=== PATIENT | male | born 1960 | race Caucasian/White ===

== ENCOUNTER 2020-12-18 19:16 | Outpatient (REF) | payer BC, SELFPAY ==
[2020-12-18 21:50] LABS: Abs Immature Grans 0.02 10^3/uL (0.0-0.06); Absolute Basophil Count 0.03 10^3/uL (0.0-0.2); Absolute Eosinophil Count 0.22 10^3/uL (0.0-0.7); Absolute Lymphocyte Count 1.93 10^3/uL (1.2-3.4); Absolute Monocyte Count 0.92 10^3/uL (0.1-0.8); Basophils % 0.3; Eosinophils % 2.3; HCT 40.7 % (40.0-50.0); HGB 13.4 g/dL (13.5-17.5); Immature Grans % 0.2; Lymphocytes % 20.5; MCH 30.3 pg (27.0-33.0); MCHC 32.9 % (32.0-36.0); MCV 92.1 fL (80-95); MPV 10.9 fL (8.0-11.0); Monocytes % 9.8; Neutrophils % 66.9; Nucleated RBC 0 %; Platelet Count 255 10^3/uL (130-400); RBC 4.42 10^6/uL (4.36-5.78); RDW 12.4 % (11.8-14.1); RDW-SD 41.9 fL; WBC 9.42 10^3/uL (4.4-10.8)
[2020-12-18 21:58] LABS: ALT 23 U/L (16-63); AST 15 U/L (15-37); Albumin 3.6 g/dL (3.4-5.0); Alkaline Phosphatase 103 U/L (46-116); Anion Gap 9.8 mmol/L (3-11); BUN 21 mg/dL (7-18); Bilirubin, Total 0.3 mg/dL (0.2-1.0); CO2 27.2 mmol/L (21.0-32.0); CREATININE 1.1 mg/dL (0.70-1.30); Calcium 9.2 mg/dL (8.5-10.1); Chloride 107 mmol/L (98-107); Glucose 100 mg/dL (74-106); Sodium 144 mmol/L (136-145); Total Protein 7.4 g/dL (6.4-8.2); Uric Acid 5.7 mg/dL (3.5-7.2)
== END 2020-12-18 19:17 | disposition home or self-care (01) ==
LOC: LBN 19:16
PROVIDERS: Visit Provider Nurse Practitioner Family
DX: I10 Essential (primary) hypertension (principal); M25.571 Pain in right ankle and joints of right foot
CPT/HCPCS: 80053; 84550; 85025

== ENCOUNTER 2020-12-24 00:53 | Outpatient (CLI) | payer BC, SELFPAY ==
--- NOTE | 2020-12-24 07:00 | DI.RAD_ITS ---
Exam(s) XR ANKLE RT COMPLETE EXAM: XR ANKLE RT COMPLETE CLINICAL HISTORY: right ankle pain,M25.571. TECHNIQUE: 2D digital imaging was performed. COMPARISON: No exams were available for comparison FINDINGS: There is no evidence of acute fracture or widening of the mortise. Talar dome appears unremarkable. Moderate size inferior calcaneal spur is noted. Dorsal talar beak also noted. There is a sclerotic medullary nonexpansile bone lesion within the distal tibia at the diaphysis-meta physis junction which measures approximately 2.5 by 1.5 cm. This is a somewhat spiculated sclerotic lesion. Possibly enchondroma, bone infarct, or other lesion. Recommend nuclear bone scan or MRI as next step here for further investigation. IMPRESSION: DATA REPOSITORY: RADIATION DOSE DELIVERED:
== END 2020-12-24 01:13 ==
LOC: DI 00:53
PROVIDERS: Visit Provider Nurse Practitioner Family
DX: M25.571 Pain in right ankle and joints of right foot (principal); M77.31 Calcaneal spur, right foot; R93.7 Abnormal findings on diagnostic imaging of other parts of musculoskeletal system
CPT/HCPCS: 73610

== ENCOUNTER 2021-01-09 00:28 | Outpatient (CLI) | payer BC, SELFPAY ==
--- NOTE | 2021-01-09 07:15 | DI.MRI_ITS ---
Exam(s) MR LOWER JOINT RT WO/W EXAM: MR LOWER JOINT RT WO/W CLINICAL HISTORY: distal tibia bone lesion,m89.9. TECHNIQUE: Multiplanar multisequence MRI Examination was performed. CONTRAST MATERIAL: IV Contrast: 20 mL of Dotarem contrast administered. COMPARISON: Plain films 24 December 2020 FINDINGS: BONES/JOINTS: No evidence of fracture. Serpiginous low signal sclerotic area distal tibia with minima l high signal surrounding on T2 weighted images. No enhancement following IV gadolinium. Findings a re consistent with an enchondroma. Small joint effusion and fluid seen posterior to the posterior t alocalcaneal joint. Degenerative changes posterior talocalcaneal joint. Degenerative changes intert arsal region with degenerative marrow signal changes. Plantar calcaneal spur without abnormal signal . LIGAMENTS: The medial and lateral collateral ligaments are intact. MUSCULOTENDINOUS STRUCTURES: Tendons appear normal. Visualized portion of the planar fascia is unrem arkable. . SOFT TISSUES: Mild diffuse subcutaneous edema.. OTHER FINDINGS: None. IMPRESSION: Lesion in the distal tibia is consistent with an enchondroma. No tendon tears. Degenerative changes in the tail calcaneal joint as well as intertarsal region. DATA REPOSITORY:
[2021-01-09 13:18] LABS: CREATININE 1.5 mg/dL (0.70-1.30)
[2021-01-09] MEDS: Normal Saline Flush 10 ML SYR IVP (13:30)
[2021-01-09] MEDS: Gadoterate meglumine 20 ML VIAL IVP (13:31)
== END 2021-01-09 00:48 ==
PROVIDERS: PCP Nurse Practitioner Family; Visit Provider Physician Assistant
DX: M89.261 Other disorders of bone development and growth, right tibia (principal)
CPT/HCPCS: 73723; 82565

== ENCOUNTER 2021-03-10 10:59 | Outpatient (CLI) | payer BC, SELFPAY ==
--- NOTE | 2021-03-10 10:15 | DI.RAD_ITS ---
Exam(s) XR FOOT RT LIMITED EXAM: XR FOOT RT LIMITED CLINICAL HISTORY: right foot pain. TECHNIQUE: 2D digital imaging was performed of the right foot. Two images were obtained. AP and la teral views were obtained. COMPARISON: CR XR ANKLE RT COMPLETE from 12/24/2020 FINDINGS: BONES: No acute fracture is present. No bony destructive lesion is seen. There is a moderate size bridgett ntar calcaneal spur. There is again seen a state sclerotic lesion in the distal tibia. Primary diff erential considerations remain enchondroma or bone infarct. JOINTS: No dislocation present. Mild joint space narrowing and periarticular spurring is seen at the 1st MTP joint. Mild hypertrophic changes are seen at the tarsometatarsal joints. SOFT TISSUE: Normal. IMPRESSION: Mild degenerative changes of the right foot. DATA REPOSITORY: RADIATION DOSE DELIVERED:
== END 2021-03-10 11:00 | disposition home or self-care (01) ==
LOC: DIORS 10:59
PROVIDERS: PCP Nurse Practitioner Family; Referring Provider Nurse Practitioner Family; Visit Provider Physician Assistant
DX: M79.671 Pain in right foot (principal); M25.571 Pain in right ankle and joints of right foot; M19.071 Primary osteoarthritis, right ankle and foot; M77.31 Calcaneal spur, right foot
CPT/HCPCS: 73620

== ENCOUNTER 2021-07-14 18:07 | Inpatient (IN) | payer BC, SELFPAY ==
[2021-07-14 18:09] VITALS: BP 146/82; PULSE 116; RESP 20; TEMP 37.6; O2SAT 99
--- NOTE | 2021-07-14 18:15 | RT.EKG_ITS ---
APPROVED REPORT Exam: Resting ECG Reason for Exam: Tachy/SOB Patient Location: E HR:111 bpm ECG Measurements Heart Rate 111 AXIS SD 153 P 34 QRSd 96 QRS -13 QT 314 T 51 QTc 427 Conclusion Sinus tachycardia...rate> 99
--- NOTE | 2021-07-14 18:30 | DI.RAD_ITS ---
Exam(s) XR CHEST 2V PA LATERAL CT CHEST WO EXAM: CT CHEST WO CLINICAL HISTORY: L effusion, short of breath TECHNIQUE: CT examination of the chest was performed without contrast administration. COMPARISON: CR,XR XR CHEST 2V PA LATERAL from 07/14/2021 FINDINGS: Images obtained through the upper abdomen show unremarkable appearance of visualized portions of the liver and spleen. Visualized portions of kidneys, adrenals, and pancreas appear intact. There is no mediastinal or hilar adenopathy. Mediastinal vascular structures appear intact by noncon trast criteria. Incidental note is made of apparent coronary artery calcification. Tracheobronchial tree appears intact. Right lung is clear and there is no right pleural effusion. There is an apparent left pleural fluid collection which is complex. There are associated areas of left lower lobe and lingular atelectasis. No definite mass identified. The findings may represent infectious process with secondary empyema. Neoplastic disease not excluded on the basis of this examination.. IMPRESSION: Left complex pleural fluid collection, suspect empyema. Alternatively, neoplastic disease should be considered. Consider thoracentesis for diagnostic purposes.. RADIATION DOSE DELIVERED: 693.99mGy.cm Total DLP CTDIvol 693.99mGy.cm Total DLP !Error CTDIvol RADIATION OPTIMIZATION: All CT scans at this facility use at least one of these dose optimization te chniques: automated exposure control; mA and/or kV adjustment per patient size (includes targeted exa ms where dose is matched to clinical indication); or iterative reconstruction.
--- NOTE | 2021-07-14 18:32 | W.ED.GENAD ---
Discharge Plan Disposition Patient Disposition: [facility]IENT Condition: Improving Discharge Details Clinical Impression: Left lower lobe pneumonia Primary Care Provider: Bo Brown ED Provider: Darryl Hodges Home Meds and New Rx's Prescriptions: No Action amlodipine 10 mg tablet 10 mg PO DAILY Qty: 90 2RF hydrochlorothiazide 25 mg tablet 25 mg PO DAILY Qty: 90 2RF losartan 100 mg tablet 100 mg PO DAILY Qty: 90 2RF metoprolol succinate 100 mg tablet extended release 24 hr 100 mg PO DAILY Qty: 90 2RF Medical Decision Making 60-year-old male presents from urgent care where he was seen and referred. Patient states that 1 week ago he was leaning over to the passenger side foot well of his car while driving and coughed hard, experiencing a pain to the left side of his chest. Over the past 2 days the pain has been improving, but he has developed dyspnea particularly while lying flat or well mildly exerting himself. He denies current chest pain. He did not suffer any other injury. Patient referred for chest x-ray which reveals a moderate to large partially loculated left pleural effusion. There is left mid to lower lung zone disease with question of pneumonia or postobstructive consolidation. Given these findings, IV access established, screening labs obtained and patient referred for CT scan of the chest. CT scan reveals severe consolidation left lower lobe with air bronchograms. Patchy airspace disease left pronounced in the left upper lobe. No definitive central airway lesions appreciated. See formal report. Patient's laboratories reveal a white count of 21, hematocrit of 30, platelets 717. Sodium 138, potassium 4.0, chloride 101, bicarb 23, BUN 29 with a creatinine of 2.4. Magnesium is 1.3. AST 56, ALT is 74. Total bili is normal at 0.3. The patient denies any significant antecedent illness, but the presentation does seem most consistent with a walking pneumonia. In this former smoker must rule out a underlying mass. Given his acute kidney injury, mild tachycardia at presentation, I do feel admission is warranted. The patient states to me that he has been immunized against COVID-19. He states he is a daily consumer of coffee and energy drinks as well as approximately a 6 pack beer per night. Case discussed with Dr. Patino and patient to be admitted HPI General Mode of arrival: ambulatory. Date/Time Provider Initiated Documentation: 07/14/21 18:15. Limitations to Documentation: no limitations. Information obtained by: patient. History of Present Illness 60 year old M presents to the emergency department with the chief complaint of 1 week left chest pain and shortness of breath., described as mild, Quality is described as dull, and is localized to the chest and left. Patient reports no radiation. Patient started experiencing this day(s) and it has been intermittent. Rest improves symptom(s), Movement worsens symptoms . Patient notes shortness of breath. Patient did receive the following treatments prior to arrival, none Related Data Home Medications Medication Instructions Recorded Confirmed amlodipine 10 mg tablet 10 mg PO DAILY #90 tabs 05/19/21 07/14/21 hydrochlorothiazide 25 mg tablet 25 mg PO DAILY #90 tabs 05/19/21 07/14/21 losartan 100 mg tablet 100 mg PO DAILY #90 tabs 05/19/21 07/14/21 metoprolol succinate 100 mg 100 mg PO DAILY #90 tabs 05/19/21 07/14/21 tablet,extended release 24 hr Previous Rx's Medication Instructions Recorded amlodipine 10 mg tablet 10 mg PO DAILY #90 tabs 05/19/21 hydrochlorothiazide 25 mg tablet 25 mg PO DAILY #90 tabs 05/19/21 losartan 100 mg tablet 100 mg PO DAILY #90 tabs 05/19/21 metoprolol succinate 100 mg 100 mg PO DAILY #90 tabs 05/19/21 tablet,extended release 24 hr Allergies Allergy/AdvReac Type Severity Reaction Status Date / Time lisinopril AdvReac Intermediate Verified 07/14/21 18:42 General Stated Complaint: SOB DARRELL: 3 Review of Systems Narrative: no other complaint PFSH All Active Problems (Updated 07/14/21 @ 20:04 by Darryl Hodges MD) Left lower lobe pneumonia (Acute) Posterior tibial tendon dysfunction (PTTD) of right lower extremity (Acute) 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 Sister No problems noted. Brother No problems noted. Social History Smoking/Tobacco Use Status: Former Tobacco Use tobacco type: cigarettes and e-cigarettes Quit Date: 02/14/17 Second Hand Exposure: Yes Smoking risk assessment performed?: Yes Alcohol Intake: current Alcohol Intake frequency: a few times a week Alcohol type: beer Drug use: Never Substance use type: does not use Caregiver/Support person: No Household members: spouse Housing: house Communication Needs: None Pets and animals: Yes Pets and animals: cat(s) and dog(s) Sexually active: Yes Do you think of yourself as: straight/heterosexual Current gender identity: male What is your relationship status?: How often do you talk on the phone with friends or family?: once per week How often do you get together with friends or relatives?: once per week Do you belong to any clubs or organized social groups?: no Panel score (0-1 are the most socially isolated patients): 1 What type of physical activity do you participate in: none 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 Pleasant, well groomed, interactive. HEAD: Normocephalic, atraumatic ENT: Mucous membranes moist, oropharynx unremarkable, External ear exam unremarkable EYES: PERRL, EOMI NECK: Full ROM, no TOI, no menigismus CHEST/RESP: Nontender, clear to auscultation right, diminished particularly at the base on the left posteriorly CARDIOVASCULAR: RRR, no murmur, rub john. 2+ Rad pulse bilateral ABDOMEN: Soft, nontender, no mass. +Bowel sounds EXT: Full ROM, no edema, no rash Neuro: Grossly normal neurologic exam, conversant, interactive. Psych: Speech fluent, thoughts congruent, affect normal Course Vital Signs Vital signs: Vital Signs Temperature 37.6 C H 07/14/21 18:09 Pulse 116 H 07/14/21 18:09 Respiratory Rate 20 07/14/21 18:09 Blood Pressure 146/82 H 07/14/21 18:09 Pulse Oximetry 99 07/14/21 18:09 Temperature 37.6 C H 07/14/21 18:09 Temperature Source Skin 07/14/21 18:09 Pulse 116 H 07/14/21 18:09 Respiratory Rate 20 07/14/21 18:09 Respiratory Effort Incrsd Work of Breathing 07/14/21 18:16 Blood Pressure 146/82 H 07/14/21 18:09 Blood Pressure Position Sitting 07/14/21 18:09 Pulse Oximetry 99 07/14/21 18:09 Oxygen Delivery Method Room Air 07/14/21 18:09 Oxygen Flow Rate 0 07/14/21 18:09 Pain Level 1 07/14/21 18:09 PAWSS Have you Been Recently Intoxicated or Drunk Within the Last 30 days?: No Have you Ever Experienced Previous Episodes of Alcohol Withdrawal?: No Have you ever Experienced Withdrawal Seizures?: No Have you ever Experienced Delirium Tremens(DT)s?: No Have you ever undergone Alcohol Rehabilitation Treatment (i.e, inpt ot outpatient treatment programs)?: No Have you ever Experienced Blackouts?: No Have you ever Combined Alcohol with other Downers within the last 90 days?: No Have you ever Combined Alcohol with any other Substance of Abuse during the last 90 days?: No Positive Blood Alcohol level on Presentation? [PCS.BAL]: No Evidence of Increased Autonomic Activity (i.e. HR>120, tremor, sweating, agitation, nausea)?: No Result: 0
[2021-07-14 18:43] VITALS: RESP 22
--- NOTE | 2021-07-14 18:47 | DI.VRAD_ITS ---
PROCEDURE INFORMATION: Exam: XR Chest Exam date and time: 07/14/2021 18:39 Age: 60 years old Clinical indication: Left-sided; Patient HX: L lung pain, diminished breath sounds TECHNIQUE: Imaging protocol: XR of the chest. Views: 2 views. COMPARISON: No relevant prior studies available. FINDINGS: Lungs: Dense airspace opacification left mid to lower lung zone. Pleural spaces: Moderate to large partially loculated left pleural effusion. No pneumothorax. Heart/Mediastinum: No cardiomegaly. Prominent left hilum, unclear if this is vascular or if this is a mass or adenopathy. Bones/joints: No acute fracture. IMPRESSION: 1. Moderate to large partially loculated left pleural effusion. 2. Left mid to lower lung zone disease may reflect pneumonia, postobstructive consolidation; postcontrast CT thorax is recommended for workup. Dictated and Authenticated by: Anne Mckeon MD. Ordering:EDMUND Andrews MD
[2021-07-14 19:21] LABS: Abs Immature Grans 0.18 10^3/uL (0.0-0.06); Absolute Monocyte Count 1.57 10^3/uL (0.1-0.8); Basophils % 0.3; Eosinophils % 0.9; HCT 30.2 % (40.0-50.0); HGB 10.1 g/dL (13.5-17.5); Immature Grans % 0.8; Lymphocytes % 6.6; MCH 30.1 pg (27.0-33.0); MCHC 33.4 % (32.0-36.0); MCV 90 fL (80-95); MPV 9.5 fL (8.0-11.0); Monocytes % 7.2; Neutrophils % 84.2; RBC 3.36 10^6/uL (4.36-5.78); RDW 12.8 % (11.8-14.1); RDW-SD 42.3 fL
[2021-07-14 19:28] LABS: Absolute Basophil Count 0.07 10^3/uL (0.0-0.2); Absolute Lymphocyte Count 1.44 10^3/uL (1.2-3.4); Absolute Neutrophil Count 18.38 10^3/uL (1.2-6.7); WBC 21.83 10^3/uL (4.4-10.8)
[2021-07-14 19:30] LABS: Platelet Count 717 10^3/uL (130-400)
[2021-07-14 19:31] LABS: INR 1.2 (0.9-1.1); PTT Activated 35.2 sec (21.0-27.5); Prothrombin Time 11.7 sec (9.3-11.0)
[2021-07-14 19:34] LABS: ALT 74 U/L (16-63); AST 56 U/L (15-37); Alkaline Phosphatase 206 U/L (46-116); Anion Gap 13.5 mmol/L (3-11); BUN 29 mg/dL (7-18); Bilirubin, Total 0.3 mg/dL (0.2-1.0); CO2 23.5 mmol/L (21.0-32.0); CREATININE 2.4 mg/dL (0.70-1.30); Calcium 9.1 mg/dL (8.5-10.1); Chloride 101 mmol/L (98-107); Estimated GFR 27.85 (mL/min/1.73m2); Glucose 116 mg/dL (74-106); Magnesium 1.3 mg/dL (1.8-2.4); Sodium 138 mmol/L (136-145); Total Protein 8.6 g/dL (6.4-8.2); Troponin I < 50 ng/L (<or=60)
--- NOTE | 2021-07-14 19:44 | DI.VRAD_ITS ---
PROCEDURE INFORMATION: Exam: CT Chest Without Contrast; Diagnostic Exam date and time: 07/14/2021 19:32 Age: 60 years old Clinical indication: Shortness of breath; Patient HX: L effusion, SOB TECHNIQUE: Imaging protocol: Diagnostic computed tomography of the chest without contrast. 3D rendering (Not supervised by radiologist): MIP and/or 3D reconstructed images were created by the technologist. Radiation optimization: All CT scans at this facility use at least one of these dose optimization techniques: automated exposure control; mA and/or kV adjustment per patient size (includes targeted exams where dose is matched to clinical indication); or iterative reconstruction. COMPARISON: CR XR CHEST 2V PA LATERAL 07/14/2021 18:39 FINDINGS: Lungs: Severe consolidation in the left lower lobe. Air bronchograms. Patchy airspace disease less pronounced in the left upper lobe. There are no definite lesions in the central airways. Follow-up recommended. Pleural spaces: Moderate, loculated left pleural effusion. On these noncontrast images the left lower pleura appears somewhat thickened. No pneumothorax. Heart: No cardiomegaly. No pericardial effusion. Lymph nodes: Left axillary lymph nodes upper limits of normal. Middle mediastinal lymph nodes are mildly enlarged. Vasculature: No aortic aneurysm. Diaphragm: Small hiatal hernia. Bones/joints: No acute fracture. Soft tissues: No suspicious lesions. IMPRESSION: 1. Severe left-sided pneumonia. 2. Moderate, loculated left pleural effusion. Consider empyema. 3. Additional findings as described. Dictated and Authenticated by: Anne Mckeon MD. Ordering:EDMUND Andrews MD
[2021-07-14] MEDS: Normal Saline 1,000 ML 1000 ML IV (19:59)
[2021-07-14 20:18] VITALS: BP 138/75; PULSE 105; RESP 18; TEMP 37.2; O2SAT 97
[2021-07-14] MEDS: MAGNESIUM SULFATE 2 GM/50 ML BAG IVPB (20:18)
[2021-07-14] MEDS: Azithromycin 250 MG TAB 500 MG PO (20:20)
[2021-07-14] MEDS: PIPERACILLIN/TAZO 3.375 GM in Normal Saline 50 ML IVPB (20:24)
[2021-07-14 20:29] LABS: RBC Morphology Normal
[2021-07-14 20:30] LABS: Diff Comment Diff Reviewed
[2021-07-14 21:07] LABS: COVID-19 PCR Negative (Negative); Influenza A PCR Negative (Negative); Influenza B PCR Negative (Negative); RSV PCR Negative (Negative)
[2021-07-14 21:13] LABS: Source Nasopharynx
--- NOTE | 2021-07-14 21:48 | HPE_ITS ---
Date of service: 07/14/21 Time of Service: 20:48 Assessment and Plan Assessment and plan (1) Left lower lobe pneumonia: Status: Acute Assessment and plan: We will treat with azithromycin and Zosyn at renally adjusted doses. Attempt to obtain sputum culture and obtain urine for Legionella antigen and streptococcal antigen. Encourage use of incentive spirometer and Acapella device. Use bronchodilators on a as needed basis. He is currently not having any bronchospasm and therefore we will not put him on routine aerosolized bronchodilators since he is already mildly tachycardic. Currently is not having any additional oxygen requirements and not having any acute respiratory distress. We will treat his pleuritic chest pain with acetaminophen. If this is an adequate then consider tramadol or codeine. If consolidations are not clearing w/ antibiotics and drainage of pleural effusion, patient may need bronchoscopy to evaluate for obstructive process. Professional time spent interviewing and examining patient, discussion of goals of care with hospital team (care management, nursing and consulting professionals) was 60 minutes. Case discussed with Dr. Darryl Hodges (2) Pleural effusion, left: Status: Acute Assessment and plan: Appears to be a complex left pleural effusion. We will asked surgery/or pulmonary service to evaluate the patient and consider placement of a pleural catheter. If this cannot be accomplished at [facility] then consider referral to interventional radiology at [facility]. (3) Alcoholic liver disease: Assessment and plan: Presumably his elevated transaminases are secondary to his regular consumption of beer. He has a history of alcoholic liver disease. He denies history of intoxication or history of alcohol withdrawal. We will monitor his liver enzymes and if they do not come down he will need further imaging of his liver. History of Present Illness History of Present Illness Chief Complaint: shortness of breath, left sided chest pains Narrative: 60-year-old male former smoker (25-30 pack yrs, dc x 5yr), who presented to the emergency department from urgent care with symptoms of shortness of breath for the past week along with left-sided pleuritic chest pain. Over the last couple days of pleuritic chest pain has improved but he continues to have dyspnea while lying down for with exertion. No associated fevers chills or rigors. Does rec all that about a month ago or slightly longer he had a couple of days in which she had high fever and shaking chills. He was concerned that he might of had COVID-19 but was tested and found to be negative for COVID-19. He has had his full vaccination series including booster vaccines. Upon evaluation in the emergency department he was noted to be afebrile at 37.6 ?C but tachycardic with a heart rate of 116 bpm and normotensive at 146/80 2 mm. Pulse oximetry was 99% on room air. He was seen in the emergency department by Dr. Darryl Hodges who performed an evaluation which included diagnostic labs chest x-ray and CT scan of his chest. In summary he had a white count of 21,800 and was mildly anemic hemoglobin of 10.1 g hematocrit 30% and CMP demonstrated azotemia with a BUN of 29 creatinine 2.4 (patient is currently on hydrochlorothiazide and losartan as well as amlodipine and metoprolol succinate for his hypertension.). Transaminases were mildly elevated with an AST of 56, ALT 74, alkaline phosphatase 206 with a normal total bilirubin of 0.3. Albumin was low at 2.0. Of note patient is a regular drinker of beer drinking up to a sixpack of beer per day with no history of alcohol withdrawal. His magnesium was low at 1.3. Imaging of his chest included chest x-ray and subsequently CT scan of his chest. Chest x-ray showed moderate to large partially loculated left pleural effusion with left mid to lower lung zone airspace disease reflective of pneumonia versus a postobstructive consolidation. CT scan of the chest postcontrast was recommended. CT scan of the chest was performed without contrast and demonstrated severe consolidation of the left lower lobe with air bronchograms and patchy airspace disease less pronounced in the left upper lobe with no definitive lesions in the central airways. Pleural space showed a moderate loculated left pleural effusion with thickening of the left lower pleura suspicious for empyema. Treatment in the emergency department included initiation of Zosyn 3.375 g IV. However blood cultures were not obtained prior to antibiotics. Patient is being admitted as an inpatient for treatment of left lower lobe pneumonia with possib le empyema, rule out possible lung mass. We will consult with pulmonary services and if no renal dietitian available we will consult with surgery CT scan and decide upon placement of the pleural drainage catheter. Review of Systems Constitutional Constitutional: Denies chills, Denies fever(s), Denies night sweats and Denies weight loss ENT Ears, Nose, Mouth, and Throat: Reports system reviewed and no additional complaints, except as documented Cardiovascular Cardiovascular: Reports chest pain at rest, Denies chest pain with activity, Reports dyspnea, Reports dyspnea on exertion and Reports orthopnea Respiratory Respiratory: Denies change in phlegm color, Denies chest congestion, Reports cough, Denies hemoptysis, Denies excessive phlegm production, Reports pain on inspiration, Reports dyspnea, Reports dyspnea on exertion, Denies stridor and Denies wheezing Gastrointestinal Gastrointestinal: Reports system reviewed and no additional complaints, except as documented Genitourinary Genitourinary: Reports system reviewed and no additional complaints, except as documented Musculoskeletal Musculoskeletal: Reports system reviewed and no additional complaints, except as documented Integumentary/Breasts Skin/Breast: Reports system reviewed and no additional complaints, except as documented Neurologic Neurologic: Reports system reviewed and no additional complaints, except as documented Endocrine Endocrine: Reports system reviewed and no additional complaints, except as documented Hematologic/Lymphatic Hematologic/Lymphatic: Reports system reviewed and no additional complaints, except as documented Allergic/Immunologic Allergic/Immunologic: Reports system reviewed and no additional complaints, except as documented and Denies wheezing PFSH All Active Problems (Updated 07/14/21 @ 22:14 by Dash Patino) Pleural effusion, left (Acute) Essential hypertension (Acute 12/25/12) Left lower lobe pneumonia (Acute) Posterior tibial tendon dysfunction (PTTD) of right lower extremity (Acute) Arthritis of right subtalar joint (Acute) Osteoarthritis of right midfoot (Acute) Pes planus of right foot (Acute) Enchondroma (Acute) Primary hypertension (Acute) Medical History Alcoholic liver disease (05/03/14) Depressive disorder Diverticulitis of colon with perforation Esophageal reflux Smoker Surgical History S/P partial colectomy (12/26/12) Family History Father Prostate cancer Sister No problems noted. Sister No problems noted. Brother No problems noted. Social History Smoking/Tobacco Use Status: Former Tobacco Use tobacco type: cigarettes and e- cigarettes Quit Date: 02/14/17 Second Hand Exposure: Yes Smoking risk assessment performed?: Yes Alcohol Intake: current Alcohol Intake frequency: a few times a week Alcohol type: beer Drug use: Never Substance use type: does not use Caregiver/Support person: No Household members: spouse Housing: house Communication Needs: None Pets and animals: Yes Pets and animals: cat(s) and dog(s) Sexually active: Yes Do you think of yourself as: straight/heterosexual Current gender identity: male What is your relationship status?: How often do you talk on the phone with friends or family?: once per week How often do you get together with friends or relatives?: once per week Do you belong to any clubs or organized social groups?: no Panel score (0-1 are the most socially isolated patients): 1 What type of physical activity do you participate in: none Drive intox or ride w/intox street 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 driver: No Do you feel safe at home: Yes Do you feel safe in your relationship?: Yes Meds Allergies and Home Medications Allergies Allergy/AdvReac Type Severity Reaction Status Date / Time lisinopril AdvReac Intermediate Verified 07/14/21 18:42 Home Medications Medication Instructions Recorded Confirmed Type amlodipine 10 mg tablet 10 mg PO DAILY #90 tabs 05/19/21 07/14/21 Rx hydrochlorothiazide 25 mg tablet 25 mg PO DAILY #90 tabs 05/19/21 07/14/21 Rx losartan 100 mg tablet 100 mg PO DAILY #90 tabs 05/19/21 07/14/21 Rx metoprolol succinate 100 mg 100 mg PO DAILY #90 tabs 05/19/21 07/14/21 Rx tablet,extended release 24 hr Exam Const General: cooperative, healthy appearing, comfortable, no acute distress, well developed and well groomed Nutritional Appearance: average body habitus Orientation: alert, awake and oriented x3 HENMT Head: normal to inspection Face and sinus: normal facial exam, sinuses nontender and face symmetric Mouth: oral mucosae normal, lip normal and tongue normal Neck Neck: normal visual inspection, full ROM, no lymphadenopathy, no meningeal signs, trachea midline and no JVD Thyroid: thyroid normal Carotids: normal carotid upstroke and bounding pulses Lymphatic: no lymphadenopathy noted Chest Chest: normal inspection of the chest and normal palpation of entire chest wall Resp Effort & Inspection: normal respiratory effort, able to speak in complete sentences and no audible wheezes Auscultation: breath sounds absent on th left (Left posterior base) Percussion: dullness Mid: left and Lower: left Cardio Jugular venous pressure: no JVD Palpation: normal PMI Rate: regular rate Rhythm: regular rhythm Heart Sounds: S1 normal, S2 normal, normal, physiologic split S2, no click, no gallops, no murmurs and no rubs Bruits: no abdominal aortic bruits, no carotid bruits and no renal bruits Pulses: brachial pulses present, radial pulses present, ulnar radial pulses present, posterior tibial pulses present, dorsalis pedis present and normal peripheral pulses GI Inspection: visible herniation (left sided ventral hernia, reducible; midline scar well healed) Palpation: soft, no hepatosplenomegaly, no aortic enlargement, no guarding and no hepatomegaly Percussion: normal to percussion Auscultation: normal bowel sounds General: bimanual renal exam normal bilaterally, bladder normal to inspection, bladder normal to palpation and No CVA tenderness Back/Spine/Pelvis Back: no CVA tenderness Cervical Spine: normal cervical lordosis and cervical ROM normal Thoracic/Lumbar Spine: thoracic and lumbar spine normal to inspection Skin General skin exam: no rashes or lesions noted Neuro General: patient alert, patient awake, patient oriented x3, tone normal, moves all extremities, normal light touch, pain and propioception, no meningeal signs and no focal motor deficits Extrem General: normal to inspection, full ROM, capillary refill normal, normal exam except as noted (Right foot and ankle in an AFO brace), no joint enlargement, no clubbing, cyanosis or edema, no pedal edema and no calf tenderness Psych Appearance: grossly normal and well kempt Mental Status: mental status grossly normal Speech and Movement: speech and movement normal Mood: congruent mood Affect: normal affect Attitude: cooperative Thought Process: normal Thought Content: normal Insight: insight good Judgment: judgment good Results Labs Result diagrams: 07/14/21 19:10 07/14/21 19:10 Labs: Laboratory Results - last 24 hr 07/14/21 07/14/21 07/14/21 19:10 19:10 19:10 WBC 21.83 H RBC 3.36 L Hgb 10.1 L Hct 30.2 L MCV 90 MCH 30.1 MCHC 33.4 RDW 12.8 Plt Count 717 H MPV 9.5 Immature Gran % 0.8 Neutrophils % 84.2 Lymphocytes % 6.6 Monocytes % 7.2 Eosinophils % 0.9 Basophils % 0.3 Nucleated RBC % 0.0 Absolute Neutrophils 18.38 H Absolute Lymphocytes 1.44 Absolute Monocytes 1.57 H Absolute Eosinophils 0.20 Absolute Basophils 0.07 RBC Morphology Normal PT 11.7 H INR 1.2 H APTT 35.2 H Sodium 138 Potassium 4.0 Chloride 101 Carbon Dioxide 23.5 Anion Gap 13.5 H BUN 29 H Creatinine 2.4 H Estimated GFR/1.73 m2 27.85 Glucose 116 H Calcium 9.1 Magnesium 1.3 L Total Bilirubin 0.3 AST 56 H ALT 74 H Alkaline Phosphatase 206 H Troponin I < 50 Total Protein 8.6 H Albumin 2.0 L COVID-19 Source SARS-CoV-2 (PCR) Influenza Type A (PCR) Influenza Type B (PCR) RSV (PCR) 07/14/21 20:15 WBC RBC Hgb Hct MCV MCH MCHC RDW Plt Count MPV Immature Gran % Neutrophils % Lymphocytes % Monocytes % Eosinophils % Basophils % Nucleated RBC % Absolute Neutrophils Absolute Lymphocytes Absolute Monocytes Absolute Eosinophils Absolute Basophils RBC Morphology PT INR APTT Sodium Potassium Chloride Carbon Dioxide Anion Gap BUN Creatinine Estimated GFR/1.73 m2 Glucose Calcium Magnesium Total Bilirubin AST ALT Alkaline Phosphatase Troponin I Total Protein Albumin COVID-19 Source Nasopharynx SARS-CoV-2 (PCR) Negative Influenza Type A (PCR) Negative Influenza Type B (PCR) Negative RSV (PCR) Negative Last Vital Signs Temp 37.2 C 07/14/21 20:18 Pulse 105 H 07/14/21 20:18 Resp 18 07/14/21 20:18 BP 138/75 07/14/21 20:18 Pulse Ox 97 07/14/21 20:18 PAWSS Have you Been Recently Intoxicated or Drunk Within the Last 30 days?: No Have you Ever Experienced Previous Episodes of Alcohol Withdrawal?: No Have you ever Experienced Withdrawal Seizures?: No Have you ever Experienced Delirium Tremens(DT)s?: No Have you ever undergone Alcohol Rehabilitation Treatment (i.e, inpt ot outpatient treatment programs)?: No Have you ever Experienced Blackouts?: No Have you ever Combined Alcohol with other Downers within the last 90 days?: No Have you ever Combined Alcohol with any other Substance of Abuse during the last 90 days?: No Positive Blood Alcohol level on Presentation? [PCS.BAL]: No Evidence of Increased Autonomic Activity (i.e. HR>120, tremor, sweating, agitation, nausea)?: No Result: 0 Point of Care Ultrasound Note: Limited thoracic POCUS demonstrates left lower lobe consolidation with air bron chograms and loculated left pleural effusion appears to be complex. Right lung appears to be normal with normal A-line pattern. Left upper lobe has a few scattered B-lines
[2021-07-14 21:59] VITALS: BP 138/75; PULSE 105; RESP 18; TEMP 37.2; O2SAT 97
[2021-07-14 22:30] LABS: Lactate 0.9 mmol/L (0.6-1.4)
[2021-07-14 22:32] VITALS: BP 134/85; PULSE 105; RESP 20; TEMP 36.6; O2SAT 97
[2021-07-14 22:59] LABS: Procalcitonin 0.3 ng/mL
--- NOTE | 2021-07-14 23:29 | W.PM.PROGNOT ---
Date of Service Date of service: 07/14/21 Time of Service: 22:33 Assessment and Plan Assessment and plan (1) Pleural effusion, left: Status: Acute Assessment and plan: loculated fluid collection- probably abscess. May need to do to separate taps. Possible chest tube/drain vs VATs. -abx per hospitalists -smoker+ -repeat CT once fluid is evacuated. NPO hold anti-coags (2) Left lower lobe pneumonia: Status: Acute (3) Alcoholic liver disease: (4) Smoker: Objective Last Vital Signs Temp 36.6 C 07/14/21 22:32 Pulse 105 H 07/14/21 22:32 Resp 20 07/14/21 22:32 BP 134/85 07/14/21 22:32 Pulse Ox 97 07/14/21 22:32 Laboratory Results - last 24 hr 07/14/21 07/14/21 07/14/21 19:10 19:10 19:10 WBC 21.83 H RBC 3.36 L Hgb 10.1 L Hct 30.2 L MCV 90 MCH 30.1 MCHC 33.4 RDW 12.8 Plt Count 717 H MPV 9.5 Immature Gran % 0.8 Neutrophils % 84.2 Lymphocytes % 6.6 Monocytes % 7.2 Eosinophils % 0.9 Basophils % 0.3 Nucleated RBC % 0.0 Absolute Neutrophils 18.38 H Absolute Lymphocytes 1.44 Absolute Monocytes 1.57 H Absolute Eosinophils 0.20 Absolute Basophils 0.07 RBC Morphology Normal PT 11.7 H INR 1.2 H APTT 35.2 H VBG Lactate Sodium 138 Potassium 4.0 Chloride 101 Carbon Dioxide 23.5 Anion Gap 13.5 H BUN 29 H Creatinine 2.4 H Estimated GFR/1.73 m2 27.85 Glucose 116 H Calcium 9.1 Magnesium 1.3 L Total Bilirubin 0.3 AST 56 H ALT 74 H Alkaline Phosphatase 206 H Troponin I < 50 Total Protein 8.6 H Albumin 2.0 L Procalcitonin COVID-19 Source SARS-CoV-2 (PCR) Influenza Type A (PCR) Influenza Type B (PCR) RSV (PCR) 07/14/21 07/14/21 07/14/21 20:15 22:17 22:17 WBC RBC Hgb Hct MCV MCH MCHC RDW Plt Count MPV Immature Gran % Neutrophils % Lymphocytes % Monocytes % Eosinophils % Basophils % Nucleated RBC % Absolute Neutrophils Absolute Lymphocytes Absolute Monocytes Absolute Eosinophils Absolute Basophils RBC Morphology PT INR APTT VBG Lactate 0.9 Sodium Potassium Chloride Carbon Dioxide Anion Gap BUN Creatinine Estimated GFR/1.73 m2 Glucose Calcium Magnesium Total Bilirubin AST ALT Alkaline Phosphatase Troponin I Total Protein Albumin Procalcitonin 0.3 COVID-19 Source Nasopharynx SARS-CoV-2 (PCR) Negative Influenza Type A (PCR) Negative Influenza Type B (PCR) Negative RSV (PCR) Negative PAWSS Have you Been Recently Intoxicated or Drunk Within the Last 30 days?: No Have you Ever Experienced Previous Episodes of Alcohol Withdrawal?: No Have you ever Experienced Withdrawal Seizures?: No Have you ever Experienced Delirium Tremens(DT)s?: No Have you ever undergone Alcohol Rehabilitation Treatment (i.e, inpt ot outpatient treatment programs)?: No Have you ever Experienced Blackouts?: No Have you ever Combined Alcohol with other Downers within the last 90 days?: No Have you ever Combined Alcohol with any other Substance of Abuse during the last 90 days?: No Positive Blood Alcohol level on Presentation? [PCS.BAL]: No Evidence of Increased Autonomic Activity (i.e. HR>120, tremor, sweating, agitation, nausea)?: No Result: 0
[2021-07-14] MEDS: Acetaminophen 500 MG TAB 1000 MG PO (23:42)
[2021-07-14] MEDS: Enoxaparin 40 MG/0.4 ML SYR SC (23:43)
[2021-07-14] MEDS: Lactated Ringers 1,000 ML 100 ML IV (23:43)
[2021-07-15] MEDS: THIAMINE 100 MG in Normal Saline 100 ML 200 MG IVPB
[2021-07-15 04:57] VITALS: BP 136/75; PULSE 97; RESP 16; TEMP 36.4; O2SAT 95
[2021-07-15] MEDS: PIPERACILLIN/TAZO 4.5 GM in Normal Saline 100 ML IVPB ×3 (06:05→21:20)
[2021-07-15 06:25] LABS: Abs Immature Grans 0.16 10^3/uL (0.0-0.06); Absolute Eosinophil Count 0.31 10^3/uL (0.0-0.7); Absolute Monocyte Count 1.48 10^3/uL (0.1-0.8); Basophils % 0.2; Eosinophils % 1.5; HCT 28.5 % (40.0-50.0); HGB 9.6 g/dL (13.5-17.5); Immature Grans % 0.8; Lymphocytes % 6.7; MCH 30.4 pg (27.0-33.0); MCHC 33.7 % (32.0-36.0); MCV 90 fL (80-95); MPV 9.7 fL (8.0-11.0); Monocytes % 7.1; Neutrophils % 83.7; Platelet Count 626 10^3/uL (130-400); RBC 3.16 10^6/uL (4.36-5.78); RDW 12.9 % (11.8-14.1); RDW-SD 42.7 fL; WBC 20.89 10^3/uL (4.4-10.8)
[2021-07-15 06:28] LABS: Absolute Basophil Count 0.04 10^3/uL (0.0-0.2); Absolute Neutrophil Count 17.48 10^3/uL (1.2-6.7)
[2021-07-15 06:41] LABS: ALT 59 U/L (16-63); AST 32 U/L (15-37); Albumin 1.6 g/dL (3.4-5.0); Alkaline Phosphatase 183 U/L (46-116); Anion Gap 11.9 mmol/L (3-11); BUN 27 mg/dL (7-18); Bilirubin, Total 0.3 mg/dL (0.2-1.0); CO2 21.1 mmol/L (21.0-32.0); CREATININE 1.7 mg/dL (0.70-1.30); Calcium 8.7 mg/dL (8.5-10.1); Chloride 106 mmol/L (98-107); Estimated GFR 41.46 (mL/min/1.73m2); Glucose 130 mg/dL (74-106); LDH 136 U/L (85-227); Magnesium 1.9 mg/dL (1.8-2.4); Potassium 3.7 mmol/L (3.5-5.1); Sodium 139 mmol/L (136-145); Total Protein 7.2 g/dL (6.4-8.2)
[2021-07-15 07:01] VITALS: BP 119/74; PULSE 90; RESP 18; TEMP 37.2; O2SAT 95
[2021-07-15 08:24] LABS: GGT 63 U/L (15-85)
[2021-07-15] MEDS: Multivitamin TAB 1 TAB PO (08:47)
[2021-07-15] MEDS: Folic Acid 1 MG TAB PO (08:47)
[2021-07-15] MEDS: Metoprolol CR 100 MG TABCR PO (08:47)
[2021-07-15] MEDS: Azithromycin 250 MG TAB PO (08:47)
[2021-07-15] MEDS: amLODIPine 10 MG TAB PO (08:48)
[2021-07-15] MEDS: Thiamine 100 MG TAB PO (08:48)
[2021-07-15] MEDS: Acetaminophen 325 MG TAB PO ×3 (08:51→20:39)
--- NOTE | 2021-07-15 10:14 | INITIAL_ITS ---
- If Service Date Differs Date of service: 07/15/21 Time of Service: 10:14 Care Management Initial Assess REASON FOR HOSPITALIZATION:: LLL pneumonia PAST MEDICAL HISTORY/PAST SURGICAL HISTORY:: All Active Problems (Updated 07/14/21 @ 22:14 by Dash Patino). Pleural effusion, left (Acute). Essential hypertension (Acute 12/25/12). Left lower lobe pneumonia (Acute). Posterior tibial tendon dysfunction (PTTD) of right lower extremity (Acute). Arthritis of right subtalar joint (Acute). Osteoarthritis of right midfoot (Acute). Pes planus of right foot (Acute). Enchondroma (Acute). Primary hypertension (Acute). Medical History. Alcoholic liver disease (05/03/14). Depressive disorder. Diverticulitis of colon with perforation. Esophageal reflux. Smoker. Surgical History . S/P partial colectomy (12/26/12) PREVIOUS FUNCTIONAL STATUS/SOCIAL/FAMILY SUPPORTS:: Kena lives in [place] with his Rebecca. He has one stepson who lives in [place] and one grand daughter. Kena works in a [employer]. He is independent at baseline and describes himself as very physical and active. He enjoys logging and splitting wood. CURRENT FUNCTIONAL STATUS:: Kena was sitting up in bed when CM met with him. He was pleasant in interaction and engaged easily with CM. Kena shared that he is feeling pretty good. He was not wearing oxygen at the time and stated that he does not have difficulty breathing unless he is active. Kena was waiting to meet with a surgeon to find out what, if any, surgical intervention would be needed. ADVANCE DIRECTIVES:: none on file Has patient been provided with info about the portal/API?: Yes Did the patient sign up for the portal?: No CODE STATUS:: Full Code INSURANCE COVERAGE / FINANCIAL ISSUES:: [employer] CURRENT HOME/COMMUNITY SERVICES/EQUIPMENT:: none PRIMARY CARE PHYSICIAN:: Bo Brown POTENTIAL DISCHARGE NEEDS:: follow up with PCP and plan of care PATIENT/FAMILY EDUCATION NEEDS:: Review of discharge instructions, limitations, activity, diet, medications, discuss Ask Me Three TRANSPORTATION:: via private vehicle with family PLAN:: Kena will likley be discharged home when medically ready. He may need new home health services, depending on the course of his illness. Kena will follow up with his community providers and plan of care and transport with family. CM will continue to support [place] and assess for ongoing discharge concerns.
--- NOTE | 2021-07-15 15:10 | PGE_ITS ---
Date of Service Date of service: 07/15/21 Time of Service: 14:11 Assessment and Plan Assessment and plan (1) Left lower lobe pneumonia: Status: Acute Assessment and plan: Cont azithromycin and Zosyn at renally adjusted doses. Attempt to obtain sputum culture. urine for Legionella antigen and streptococcal antige pending. Encourage use of incentive spirometer and Acapella device. Bronchodilators on a as needed basis. He is currently not having any bronchospasm and therefore we will not put him on routine aerosolized bronchodilators since he is already mildly tachycardic. Currently is not having any additional oxygen requirements and not having any acute respiratory distress. Treat pleuritic chest pain with acetaminophen. Gen surgery consulted for evaluation, obtaining fluid for cxs and cytology. LIkely will place a pleuralcatheter today and repeat CT tomorrow. If needed, can then administer tPA. (2) Pleural effusion, left: Status: Acute Assessment and plan: Appears to be a complex left pleural effusion. See LLL PNA (3) Alcoholic liver disease: Assessment and plan: Presumably his elevated transaminases are secondary to his regular consumption of beer. He has a history of alcoholic liver disease. He denies history of intoxication or history of alcohol withdrawal. We will monitor his liver enzymes and if they do not come down he will need further imaging of his liver. Subjective Subjective Patient reports: no new complaints, shortness of breath (with exertion.) and afebrile; denies nausea or vomiting Exam Narrative Exam Narrative: WDWN male lying in bed. Const General: cooperative, healthy appearing, comfortable, well developed, well groomed and acute distress (mod shortness of air after ambulating from bathroom just before my exam. ) Nutritional Appearance: average body habitus Orientation: alert, awake and oriented x3 HENMT Head: normal to inspection Mouth: moist mucous membranes Neck Neck: normal visual inspection, full ROM, no lymphadenopathy, no meningeal signs, trachea midline and no JVD Thyroid: thyroid normal Carotids: normal carotid upstroke and bounding pulses Lymphatic: no lymphadenopathy noted Resp Effort & Inspection: normal respiratory effort, not able to speak in complete s entences and no audible wheezes Auscultation: breath sounds absent on th left (Left posterior base) Percussion: dullness Mid: left and Lower: left Cardio Jugular venous pressure: no JVD Palpation: normal PMI Rate: regular rate Rhythm: regular rhythm Heart Sounds: S1 normal, S2 normal, click, gallop, no murmurs and rub Bruits: abdominal aortic bruit, no carotid bruits and renal bruit GI Inspection: visible herniation (left sided ventral hernia, reducible; midline scar well healed) Palpation: soft and no guarding Auscultation: normal bowel sounds General: bimanual renal exam normal bilaterally, bladder normal to inspection, bladder normal to palpation and No CVA tenderness Back/Spine/Pelvis Back: no CVA tenderness Skin General skin exam: no rashes or lesions noted Neuro General: patient alert, patient awake, patient oriented x3 and no focal motor deficits Extrem General: no joint enlargement, no pedal edema and no calf tenderness Psych Appearance: grossly normal and well kempt Mental Status: mental status grossly normal Speech and Movement: speech and movement normal Mood: congruent mood Affect: normal affect Attitude: cooperative Thought Process: normal Thought Content: normal Insight: insight good Judgment: judgment good Objective Last Vital Signs Temp 37.2 C 07/15/21 07:01 Pulse 90 07/15/21 07:01 Resp 18 07/15/21 07:01 BP 119/74 07/15/21 07:01 Pulse Ox 95 07/15/21 07:01 Laboratory Results - last 24 hr 07/14/21 07/14/21 07/14/21 19:10 19:10 19:10 WBC 21.83 H RBC 3.36 L Hgb 10.1 L Hct 30.2 L MCV 90 MCH 30.1 MCHC 33.4 RDW 12.8 Plt Count 717 H MPV 9.5 Immature Gran % 0.8 Neutrophils % 84.2 Lymphocytes % 6.6 Monocytes % 7.2 Eosinophils % 0.9 Basophils % 0.3 Nucleated RBC % 0.0 Absolute Neutrophils 18.38 H Absolute Lymphocytes 1.44 Absolute Monocytes 1.57 H Absolute Eosinophils 0.20 Absolute Basophils 0.07 RBC Morphology Normal PT 11.7 H INR 1.2 H APTT 35.2 H VBG Lactate Sodium 138 Potassium 4.0 Chloride 101 Carbon Dioxide 23.5 Anion Gap 13.5 H BUN 29 H Creatinine 2.4 H Estimated GFR/1.73 m2 27.85 Glucose 116 H Calcium 9.1 Magnesium 1.3 L Total Bilirubin 0.3 GGT AST 56 H ALT 74 H Alkaline Phosphatase 206 H Lactate Dehydrogenase Troponin I < 50 Total Protein 8.6 H Albumin 2.0 L Procalcitonin COVID-19 Source SARS-CoV-2 (PCR) Influenza Type A (PCR) Influenza Type B (PCR) RSV (PCR) 07/14/21 07/14/21 07/14/21 20:15 22:17 22:17 WBC RBC Hgb Hct MCV MCH MCHC RDW Plt Count MPV Immature Gran % Neutrophils % Lymphocytes % Monocytes % Eosinophils % Basophils % Nucleated RBC % Absolute Neutrophils Absolute Lymphocytes Absolute Monocytes Absolute Eosinophils Absolute Basophils RBC Morphology PT INR APTT VBG Lactate 0.9 Sodium Potassium Chloride Carbon Dioxide Anion Gap BUN Creatinine Estimated GFR/1.73 m2 Glucose Calcium Magnesium Total Bilirubin GGT AST ALT Alkaline Phosphatase Lactate Dehydrogenase Troponin I Total Protein Albumin Procalcitonin 0.3 COVID-19 Source Nasopharynx SARS-CoV-2 (PCR) Negative Influenza Type A (PCR) Negative Influenza Type B (PCR) Negative RSV (PCR) Negative 07/15/21 07/15/21 05:55 05:55 WBC 20.89 H RBC 3.16 L Hgb 9.6 L Hct 28.5 L MCV 90 MCH 30.4 MCHC 33.7 RDW 12.9 Plt Count 626 H MPV 9.7 Immature Gran % 0.8 Neutrophils % 83.7 Lymphocytes % 6.7 Monocytes % 7.1 Eosinophils % 1.5 Basophils % 0.2 Nucleated RBC % 0.0 Absolute Neutrophils 17.48 H Absolute Lymphocytes 1.40 Absolute Monocytes 1.48 H Absolute Eosinophils 0.31 Absolute Basophils 0.04 RBC Morphology PT INR APTT VBG Lactate Sodium 139 Potassium 3.7 Chloride 106 Carbon Dioxide 21.1 Anion Gap 11.9 H BUN 27 H Creatinine 1.7 H Estimated GFR/1.73 m2 41.46 Glucose 130 H Calcium 8.7 Magnesium 1.9 Total Bilirubin 0.3 GGT 63 AST 32 ALT 59 Alkaline Phosphatase 183 H Lactate Dehydrogenase 136 Troponin I Total Protein 7.2 Albumin 1.6 L Procalcitonin COVID-19 Source SARS-CoV-2 (PCR) Influenza Type A (PCR) Influenza Type B (PCR) RSV (PCR) PAWSS Have you Been Recently Intoxicated or Drunk Within the Last 30 days?: No Have you Ever Experienced Previous Episodes of Alcohol Withdrawal?: No Have you ever Experienced Withdrawal Seizures?: No Have you ever Experienced Delirium Tremens(DT)s?: No Have you ever undergone Alcohol Rehabilitation Treatment (i.e, inpt ot outpatient treatment programs)?: No Have you ever Experienced Blackouts?: No Have you ever Combined Alcohol with other Downers within the last 90 days?: No Have you ever Combined Alcohol with any other Substance of Abuse during the last 90 days?: No Positive Blood Alcohol level on Presentation? [PCS.BAL]: No Evidence of Increased Autonomic Activity (i.e. HR>120, tremor, sweating, agitation, nausea)?: No Result: 0
[2021-07-15 15:14] VITALS: BP 118/74; PULSE 96; RESP 18; TEMP 38; O2SAT 95
[2021-07-15 15:23] VITALS: TEMP 38
[2021-07-15] MEDS: MORPHine 2 MG/ML SYR IVP (16:02)
[2021-07-15] MEDS: LORazepam 2 MG/ML VIAL 1 MG IVP (16:02)
[2021-07-15] MEDS: Normal Saline Flush 10 ML SYR IVP (16:03)
[2021-07-15] MEDS: Lidocaine 1% Multi-Dose 50 ML VIAL IJ (16:03)
--- NOTE | 2021-07-15 16:35 | PAPNONF_PTH ---
PATIENT: Kena Franco I LOC: U#:[id number] AGE/SX: 60/M ROOM: MS.231 RE07/14/[address]: Dash Patino : 1960 BED: A DIS: 07/20/2021 SPEC #: [id number] RECD: 07/15/21 18:19 STATUS: VANITAJinny REQ #: [id number] KIERAN: 07/15/21 16:[address]: Dash Patino DEPT: COUNT INCLUDES THE [facility] Cytology RECD BY: Monalisa Lowe ENTERED: 07/15/21 18:20 SP TYPE: YONATAN SAM DR: Bo Brown, HISTOTECHNICIAN Eli Moore, Tissues: 1 - BODY FLUID CYTO(NOT S/U/N/EM)[facility] Procedures: BODY FLUID CYTO(NOT SPU/UR/NIP/ENDOM)[facility] Comments: [id number] (TOTAL VOLUME = 55 ml, SENT FRESH)
--- NOTE | 2021-07-15 16:42 | W.PM.PROGNOT ---
Date of Service Date of service: 07/15/21 Time of Service: 15:42 Assessment and Plan Assessment and plan (1) Pleural effusion, left: Status: Acute Assessment and plan: 1. loculated fluid collection- probably abscess - discussed with patient options of thoracenthesis vs chest tube placement for drainage. I recomend pigtail chest tube because I think he will need TPA therapy to be able to mobilize the loculated fluid. If that doesn't work then may need Transfer for VATS. Risk, benefits and complications reviewed. Patient would like to proceed with chest tube placement. -abx per hospitalists -smoker+ -repeat CT tomorrow morning -resume diet and anticoagulation (2) Left lower lobe pneumonia: Status: Acute Subjective Subjective Interval history since last seen: Kena is doing OK. He is off O2. His WBC was still elevated. He has had some fevers today and is having some chest pain with coughing and deep breathing. Exam Const General: cooperative, comfortable and no acute distress Orientation: alert and oriented x3 HENMT Head: normocephalic and atraumatic Resp Effort & Inspection: normal respiratory effort Auscultation: breath sounds absent (left lower and mid) Cardio Rate: regular rate Rhythm: regular rhythm Heart Sounds: no gallops, no murmurs and no rubs Objective Last Vital Signs Temp 100.4 F H 07/15/21 15:23 Pulse 96 H 07/15/21 15:14 Resp 18 07/15/21 15:14 BP 118/74 07/15/21 15:14 Pulse Ox 95 07/15/21 15:14 Laboratory Results - last 24 hr 07/14/21 07/14/21 07/14/21 19:10 19:10 19:10 WBC 21.83 H RBC 3.36 L Hgb 10.1 L Hct 30.2 L MCV 90 MCH 30.1 MCHC 33.4 RDW 12.8 Plt Count 717 H MPV 9.5 Immature Gran % 0.8 Neutrophils % 84.2 Lymphocytes % 6.6 Monocytes % 7.2 Eosinophils % 0.9 Basophils % 0.3 Nucleated RBC % 0.0 Absolute Neutrophils 18.38 H Absolute Lymphocytes 1.44 Absolute Monocytes 1.57 H Absolute Eosinophils 0.20 Absolute Basophils 0.07 RBC Morphology Normal PT 11.7 H INR 1.2 H APTT 35.2 H VBG Lactate Sodium 138 Potassium 4.0 Chloride 101 Carbon Dioxide 23.5 Anion Gap 13.5 H BUN 29 H Creatinine 2.4 H Estimated GFR/1.73 m2 27.85 Glucose 116 H Calcium 9.1 Magnesium 1.3 L Total Bilirubin 0.3 GGT AST 56 H ALT 74 H Alkaline Phosphatase 206 H Lactate Dehydrogenase Troponin I < 50 Total Protein 8.6 H Albumin 2.0 L Procalcitonin COVID-19 Source SARS-CoV-2 (PCR) Influenza Type A (PCR) Influenza Type B (PCR) RSV (PCR) 07/14/21 07/14/21 07/14/21 20:15 22:17 22:17 WBC RBC Hgb Hct MCV MCH MCHC RDW Plt Count MPV Immature Gran % Neutrophils % Lymphocytes % Monocytes % Eosinophils % Basophils % Nucleated RBC % Absolute Neutrophils Absolute Lymphocytes Absolute Monocytes Absolute Eosinophils Absolute Basophils RBC Morphology PT INR APTT VBG Lactate 0.9 Sodium Potassium Chloride Carbon Dioxide Anion Gap BUN Creatinine Estimated GFR/1.73 m2 Glucose Calcium Magnesium Total Bilirubin GGT AST ALT Alkaline Phosphatase Lactate Dehydrogenase Troponin I Total Protein Albumin Procalcitonin 0.3 COVID-19 Source Nasopharynx SARS-CoV-2 (PCR) Negative Influenza Type A (PCR) Negative Influenza Type B (PCR) Negative RSV (PCR) Negative 07/15/21 07/15/21 05:55 05:55 WBC 20.89 H RBC 3.16 L Hgb 9.6 L Hct 28.5 L MCV 90 MCH 30.4 MCHC 33.7 RDW 12.9 Plt Count 626 H MPV 9.7 Immature Gran % 0.8 Neutrophils % 83.7 Lymphocytes % 6.7 Monocytes % 7.1 Eosinophils % 1.5 Basophils % 0.2 Nucleated RBC % 0.0 Absolute Neutrophils 17.48 H Absolute Lymphocytes 1.40 Absolute Monocytes 1.48 H Absolute Eosinophils 0.31 Absolute Basophils 0.04 RBC Morphology PT INR APTT VBG Lactate Sodium 139 Potassium 3.7 Chloride 106 Carbon Dioxide 21.1 Anion Gap 11.9 H BUN 27 H Creatinine 1.7 H Estimated GFR/1.73 m2 41.46 Glucose 130 H Calcium 8.7 Magnesium 1.9 Total Bilirubin 0.3 GGT 63 AST 32 ALT 59 Alkaline Phosphatase 183 H Lactate Dehydrogenase 136 Troponin I Total Protein 7.2 Albumin 1.6 L Procalcitonin COVID-19 Source SARS-CoV-2 (PCR) Influenza Type A (PCR) Influenza Type B (PCR) RSV (PCR) Procedures Chest Tube Chest Tube 1: Chest tube location: Mid-Axillary Chest Size of tube: 16 Chest tube procedure: Yes sterile drapes applied and other Progress: Pre-op Dx: Left loculated pleural effusion Post-op Dx: same Procedure: Left 16 fr chest tube placement Surgeon: Pernell Bailey MD Anesthesia: 40 cc of 1% Lidocaine Blood loss: 15 cc Specimen: 30 cc of purulent fluid Complications: no immediate complications Procedure: After informed consent was obtained the patient was placed in a supine position with his left arm above his head. The skin around the fifth intercostal space was cleaned with chlorhexedine, draped and infiltrated with the above local anesthetic. A small incision was made with an 11 blade. The cook 16 fr chest tube (pigtail catheter) was opened. The needle was advanced to uncurrel the tip. The tube was inserted and placed through the 5th intercostal space into the chest cavity. Once fluid was pulled out the needle was removed and the chest tube was advanced. Once in place it was secured with 2-0 silk. 30 cc of purulent fluid was removed and sent to the lab for cultures and cytology. The tube was then placed to [facility]. The skin was cleaned and 4x4 were placed around the chest tube and secured with tape. The patient toelrated the procedure well and there were no immediate complications. PAWSS Have you Been Recently Intoxicated or Drunk Within the Last 30 days?: No Have you Ever Experienced Previous Episodes of Alcohol Withdrawal?: No Have you ever Experienced Withdrawal Seizures?: No Have you ever Experienced Delirium Tremens(DT)s?: No Have you ever undergone Alcohol Rehabilitation Treatment (i.e, inpt ot outpatient treatment programs)?: No Have you ever Experienced Blackouts?: No Have you ever Combined Alcohol with other Downers within the last 90 days?: No Have you ever Combined Alcohol with any other Substance of Abuse during the last 90 days?: No Positive Blood Alcohol level on Presentation? [PCS.BAL]: No Evidence of Increased Autonomic Activity (i.e. HR>120, tremor, sweating, agitation, nausea)?: No Result: 0
[2021-07-15 19:50] LABS: Legionella Ag Detection Urine Negative (Negative)
[2021-07-15 20:34] VITALS: RESP 20; TEMP 36.4; O2SAT 94
[2021-07-15] MEDS: Enoxaparin 40 MG/0.4 ML SYR SC (21:21)
[2021-07-16] MEDS: Acetaminophen 325 MG TAB PO ×3 (00:21→23:30)
[2021-07-16 03:44] VITALS: BP 109/69; PULSE 101; RESP 20; TEMP 36.9; O2SAT 97
[2021-07-16 03:51] VITALS: RESP 20
[2021-07-16 05:59] LABS: Abs Immature Grans 0.17 10^3/uL (0.0-0.06); Absolute Basophil Count 0.08 10^3/uL (0.0-0.2); Absolute Eosinophil Count 0.47 10^3/uL (0.0-0.7); Absolute Lymphocyte Count 1.78 10^3/uL (1.2-3.4); Absolute Monocyte Count 1.52 10^3/uL (0.1-0.8); Absolute Neutrophil Count 17.14 10^3/uL (1.2-6.7); Basophils % 0.4; Eosinophils % 2.2; HGB 9.4 g/dL (13.5-17.5); Immature Grans % 0.8; Lymphocytes % 8.4; MCH 29.7 pg (27.0-33.0); MCHC 32.4 % (32.0-36.0); MCV 92 fL (80-95); MPV 9.4 fL (8.0-11.0); Monocytes % 7.2; Platelet Count 658 10^3/uL (130-400); RBC 3.16 10^6/uL (4.36-5.78); RDW-SD 44.1 fL; WBC 21.16 10^3/uL (4.4-10.8)
[2021-07-16 06:04] LABS: Anion Gap 12.1 mmol/L (3-11); BUN 25 mg/dL (7-18); CO2 22.9 mmol/L (21.0-32.0); CREATININE 1.6 mg/dL (0.70-1.30); Calcium 8.9 mg/dL (8.5-10.1); Chloride 105 mmol/L (98-107); Estimated GFR 44.46 (mL/min/1.73m2); Glucose 120 mg/dL (74-106); Potassium 3.9 mmol/L (3.5-5.1); Sodium 140 mmol/L (136-145)
[2021-07-16] MEDS: PIPERACILLIN/TAZO 4.5 GM in Normal Saline 100 ML IVPB (06:37)
[2021-07-16] MEDS: Normal Saline 500 ML 30 ML IV (06:38)
[2021-07-16] MEDS: MORPHine 2 MG/ML SYR IVP (06:55)
[2021-07-16] MEDS: Normal Saline Flush 10 ML SYR IVP ×2 (06:56→21:34)
[2021-07-16] MEDS: Folic Acid 1 MG TAB PO (07:50)
[2021-07-16] MEDS: Multivitamin TAB 1 TAB PO (07:50)
[2021-07-16] MEDS: Omeprazole 20 MG CAPCR PO (07:50)
[2021-07-16] MEDS: Metoprolol CR 100 MG TABCR PO (07:50)
[2021-07-16] MEDS: Azithromycin 250 MG TAB PO (07:50)
[2021-07-16] MEDS: Thiamine 100 MG TAB PO (07:50)
[2021-07-16] MEDS: amLODIPine 10 MG TAB PO (07:51)
[2021-07-16 08:10] VITALS: BP 106/69; PULSE 93; RESP 18; TEMP 36.6; O2SAT 94
--- NOTE | 2021-07-16 08:42 | W.PM.PROGNOT ---
Date of Service Date of service: 07/16/21 Time of Service: 07:42 Assessment and Plan Assessment and plan (1) Left lower lobe pneumonia: Status: Acute (2) Alcoholic liver disease: (3) Depressive disorder: (4) Esophageal reflux: (5) Smoker: (6) Empyema lung: Status: Acute Assessment and plan: catheter is in good position on CT -minimal output documented -lytics were not given today. -I think ultimately he is going to need a VATS for evacuation of this collection. Continue antibiotics and pulmonary toilet Subjective Subjective Interval history since last seen: Pt is doing well. no headaches. No CP or SOB. no productive cough. no dysuria. no leg pain or swelling. Since the insertion of the pigtail, there has only been 100 cc of serous fluid out. I did attempt to irrigate the catheter. I was not able to get any significant amount of fluid back. There is some thick material within the line itself. He did have another CT scan of the chest this a.m. Again the pigtail is w/in the superior collection. It is not in the inferior collection. It does not appear that the [address]. Per the patient, he is been struggling with this for the past 4 months. I did discuss with Dr. Lassiter that I think this collection is going to require surgical evacuation Exam Resp Other: The insertion site is clean dry and intact. All the connections are taken down and examined. The tube is irrigated. There is no airleak. There was no pneumo. There is no crepitance. There is no breath sounds Objective Last Vital Signs Temp 36.6 C 07/16/21 08:10 Pulse 93 H 07/16/21 08:10 Resp 18 07/16/21 08:10 BP 106/69 07/16/21 08:10 Pulse Ox 94 07/16/21 08:10 Laboratory Results - last 24 hr 07/15/21 07/16/21 07/16/21 04:50 05:40 05:40 WBC 21.16 H RBC 3.16 L Hgb 9.4 L Hct 29.0 L MCV 92 MCH 29.7 MCHC 32.4 D RDW 13.0 Plt Count 658 H MPV 9.4 Immature Gran % 0.8 Neutrophils % 81.0 Lymphocytes % 8.4 Monocytes % 7.2 Eosinophils % 2.2 Basophils % 0.4 Nucleated RBC % 0.0 Absolute Neutrophils 17.14 H Absolute Lymphocytes 1.78 Absolute Monocytes 1.52 H Absolute Eosinophils 0.47 Absolute Basophils 0.08 Sodium 140 Potassium 3.9 Chloride 105 Carbon Dioxide 22.9 Anion Gap 12.1 H BUN 25 H Creatinine 1.6 H Estimated GFR/1.73 m2 44.46 Glucose 120 H Calcium 8.9 Urine Legionella Ag Negative PAWSS Have you Been Recently Intoxicated or Drunk Within the Last 30 days?: No Have you Ever Experienced Previous Episodes of Alcohol Withdrawal?: No Have you ever Experienced Withdrawal Seizures?: No Have you ever Experienced Delirium Tremens(DT)s?: No Have you ever undergone Alcohol Rehabilitation Treatment (i.e, inpt ot outpatient treatment programs)?: No Have you ever Experienced Blackouts?: No Have you ever Combined Alcohol with other Downers within the last 90 days?: No Have you ever Combined Alcohol with any other Substance of Abuse during the last 90 days?: No Positive Blood Alcohol level on Presentation? [PCS.BAL]: No Evidence of Increased Autonomic Activity (i.e. HR>120, tremor, sweating, agitation, nausea)?: No Result: 0
--- NOTE | 2021-07-16 09:00 | DI.CT_ITS ---
Exam(s) CT CHEST WO EXAM: CT CHEST WO CLINICAL HISTORY: follow up pleural effusion/ s/p chest tube placeme. TECHNIQUE: Multi planar reconstructions were performed. CONTRAST MATERIAL: None COMPARISON: CT CT CHEST WO from 07/14/2021 FINDINGS: CHEST: LUNGS: There has been interval placement of a pigtail drainage catheter on the left side. However, t he size of the pleural effusion has not decreased. The inferior collection is approximately equal in size to previous. The more superior collection has further increased in size. It appears loculated and probably separate from the lower pleural effusion and therefore not adequate service by the indw elling pigtail drainage catheter. There is also significant infiltrate in the left lung which has no t decreased. The opposite-right lung remains relatively clear with the exception of some increasing mild infiltrate in the posterior basal segment of right lower lobe. MEDIASTINUM: There are slightly prominent mediastinal lymph nodes including subcarinal lymph nodes ag ain noted. Visualized thyroid unremarkable.No obvious axillary adenopathy CARDIAC: Heart size upper normal. Mild thickening of the anterior pericardium is noted but no eviden ce of prominent pericardial effusion.Caliber of the thoracic aorta is within normal limits. VISUALIZED UPPER ABDOMEN:No fluid subjacent to the left hemidiaphragm. No adrenal masses. OSSEOUS: No significant osseous lesions.. IMPRESSION: 1. Compared to the CT scan of 07/14/2021 there has been interval placement of a left-sided pigtail dr silas catheter which is in the most superior aspect of the lower left pleural collection. This has not significantly decreased in size. This may be related to the fact that the pigtail is in the supe rior aspect of the lower collection. In addition, the upper collection has increased in size. I suspect that this may be in part related to the fact that it is a separate loculated collection and there is interposed lung infiltrate. May require placement of a 2nd drainage catheter in the upper collection. 2. Mild infiltrate now evident in the right lung base. No significant right pleural effusion. 3. Moderate mediastinal adenopathy is again noted. RADIATION DOSE DELIVERED: 638.07mGy.cm Total DLP DATA REPOSITORY: All CT scans at this facility are submitted to the National Radiology Data Registry (NRDR) Dose Index Registry (DIR) with the [employer] ([employer]). RADIATION OPTIMIZATION: All CT scans at this facility use at least one of these dose optimization te chniques: automated exposure control; mA and/or kV adjustment per patient size (includes targeted exa ms where dose is matched to clinical indication); or iterative reconstruction.
--- NOTE | 2021-07-16 09:33 | CMPROGNOTE_ITS ---
- If Service Date Differs Date of service: 07/16/21 Time of Service: 09:33 Care Management Progress Note S/O:Kena was sitting up in bed when CM met with him. He engaged readily with CM and appeared to be in good spirits. Kena informed CM that he had a chest tube inserted yesterday and that it has been draining well since. He also shared that he had imaging (CT scan) this morning for follow up after the chest tube insertion. Kena's vital signs are stable, although he has been a bit tachyc ardic with heart rates between 90 and 116. His oxygen saturation has been in the mid to upper 90's on room air when at rest. A:Kena is a 60 year old man admitted on 07/14/21 with pneumonia and empyema P:Kena will likley be discharged home when medically ready. He may need new home health services, depending on the course of his illness. Kena will follow up with his community providers and plan of care and transport with family. CM will continue to support Kena and assess for ongoing discharge concerns.
[2021-07-16] MEDS: PIPERACILLIN/TAZO 3.375 GM in Normal Saline 50 ML IVPB ×2 (14:12→21:34)
--- NOTE | 2021-07-16 14:22 | W.PM.PROGNOT ---
Date of Service Date of service: 07/16/21 Time of Service: 13:22 Assessment and Plan Assessment and plan (1) Left lower lobe pneumonia: Status: Acute Assessment and plan: continue Zosyn and axithromycin, prn oxygen; prn bronchodilators, IS and acapella. I have asked DI to send his CT scans and chest xrays to [facility] so that I can consult w/ pulmonary services to discuss optimal treatment. His pleural effusions are loculated w/ left upper lung and left lower lung zones. The pigtail catheter tip is located in the upper area of the lower pleural effusion and this is probably why it is not draining properly. I have asked the nurse to put the pleural catheter to suction and have him lie on his left side to see if the fluid will shift in such a way that the catheter tip will drain the fluid. He will probably need another catheter placed in the upper loculated effusion. I have held on giving dornase/TPA until I have a chance to discuss w/ pulmonology. He may need VATS both for diagnosis i.e. r/o cancer, as well as for treatment of the loculated effusions. Case discussed with Dr. Marin who recommends referral to CT surgery at [facility]. She feels that he will need a VATS procedure. Professional time spent interviewing and examining patient, discussion of goals of care with hospital team (care management, nursing and consulting professionals) was 45 minutes. (2) Empyema lung: Status: Acute Assessment and plan: as above (3) Pleural effusion, left: Status: Acute Assessment and plan: As above (4) Essential hypertension: Status: Acute Assessment and plan: BP stable. he remains off his HCTZ and his lisinopril in light of his DONNY. I think his DONNY may actually be CKD. cont. metoprolol and amlodipine (5) DVT prophylaxis: Status: Acute (6) Azotemia: Status: Acute Assessment and plan: as above. I think that this is CKD. I will check UA, urine spot creatinine and sodium and get urine microalbumin and check glycohemoglobin A1c and renal U.S. Subjective Subjective Interval history since last seen: Patient denies any significant chest pain or dyspnea. He is not requiring any supplemental oxygen. Unfortunately the pigtail pleural catheter tip is at the upper level of the lower fluid pocket he has a secondary loculated effusion around the upper lobe which the pigtail catheter is not draining. He is only had a cumulative fluid drainage of 130 mL from the pigtail catheter since it was placed yesterday. He is only had 35 mL output since midnight. He remains on Zosyn and azithromycin for community-acquired pneumonia complicated by empyema. Left pleural fluid was sent for gram stain and culture. Gram stain shows many white cells but no bacteria. Culture is still pending at this time. Blood cultures are also pending. He remains afebrile but has a white count of 21,000 which is persisted since admission. Exam Narrative Exam Narrative: Mr. Franco appears to be comfortable no acute respiratory distress not requiring oxygen. Neck is supple no JVD no accessory respiratory muscle use. Lungs are clear on the right however on the left he has markedly diminished breath sounds over left lung base. Few rhonchi anteriorly. Chest tube is draining cloudy straw-colored fluid. Abdomen soft and nontender Extremities without peripheral cyanosis or edema Objective Last Vital Signs Temp 36.6 C 07/16/21 08:10 Pulse 93 H 07/16/21 08:10 Resp 18 07/16/21 08:10 BP 106/69 07/16/21 08:10 Pulse Ox 94 07/16/21 08:10 Laboratory Results - last 24 hr 07/15/21 07/16/21 07/16/21 04:50 05:40 05:40 WBC 21.16 H RBC 3.16 L Hgb 9.4 L Hct 29.0 L MCV 92 MCH 29.7 MCHC 32.4 D RDW 13.0 Plt Count 658 H MPV 9.4 Immature Gran % 0.8 Neutrophils % 81.0 Lymphocytes % 8.4 Monocytes % 7.2 Eosinophils % 2.2 Basophils % 0.4 Nucleated RBC % 0.0 Absolute Neutrophils 17.14 H Absolute Lymphocytes 1.78 Absolute Monocytes 1.52 H Absolute Eosinophils 0.47 Absolute Basophils 0.08 Sodium 140 Potassium 3.9 Chloride 105 Carbon Dioxide 22.9 Anion Gap 12.1 H BUN 25 H Creatinine 1.6 H Estimated GFR/1.73 m2 44.46 Glucose 120 H Calcium 8.9 Urine Legionella Ag Negative PAWSS Have you Been Recently Intoxicated or Drunk Within the Last 30 days?: No Have you Ever Experienced Previous Episodes of Alcohol Withdrawal?: No Have you ever Experienced Withdrawal Seizures?: No Have you ever Experienced Delirium Tremens(DT)s?: No Have you ever undergone Alcohol Rehabilitation Treatment (i.e, inpt ot outpatient treatment programs)?: No Have you ever Experienced Blackouts?: No Have you ever Combined Alcohol with other Downers within the last 90 days?: No Have you ever Combined Alcohol with any other Substance of Abuse during the last 90 days?: No Positive Blood Alcohol level on Presentation? [PCS.BAL]: No Evidence of Increased Autonomic Activity (i.e. HR>120, tremor, sweating, agitation, nausea)?: No Result: 0
[2021-07-16 16:32] LABS: Bilirubin Negative (Negative); Blood Large (Negative); Clarity Clear (Clear); Glucose Negative (Negative); Ketones Negative (Negative); Leukocyte Esterase Negative (Negative); Nitrite Negative (Negative); Urobilinogen 0.2 EU/dL (Up TO 0.2)
[2021-07-16 16:54] LABS: Bacteria Negative HPF (Negative); Crystals Few Calcium Oxalate HPF (Negative); Epithelial Cells Negative HPF (Negative); RBC >50 HPF (0-2); WBC 0-2 HPF (0-5)
[2021-07-16 16:55] LABS: C & S Indicated? No; Mucus Negative (Negative)
[2021-07-16 16:57] LABS: Creatinine,Urine 101.62 mg/dL
[2021-07-16 19:48] VITALS: RESP 18; O2SAT 96
[2021-07-16 19:55] VITALS: BP 123/76; PULSE 96; RESP 18; TEMP 37.3; O2SAT 96
[2021-07-16 22:57] LABS: Sodium, Urine 69 mmol/L
[2021-07-16 23:50] VITALS: BP 120/72; PULSE 96; RESP 18; TEMP 37.5; O2SAT 93
[2021-07-17] VITALS (7 sets, daily range): BP systolic 123–131; BP diastolic 77–78; PULSE 83–109; RESP 16–24; TEMP 36.5–38.7; O2SAT 94–96
[2021-07-17 00:42] LABS: Streptococcus Pneumoniae Ag, U Negative (Negative)
[2021-07-17] MEDS: PIPERACILLIN/TAZO 3.375 GM in Normal Saline 50 ML IVPB ×2 (05:20→14:34)
--- NOTE | 2021-07-17 08:44 | PUCON_ITS ---
General Date Of Service Date of service: 07/17/21 Time of Service: 07:44 Reason for Consult: Loculated pleural effusion Assessment and Plan Assessment and plan (1) Loculated pleural effusion: Status: Acute (2) Compressive atelectasis: Status: Acute (3) Left lower lobe pneumonia: Status: Acute Assessment and plan: This is a 60 yo man with no prior history of pneumonia's or lung issues who is admitted for a loculated pleural effusion. This is not empyema by definition, however the pleural space is complicated with septations creating 3 different spaces. It does not appear as though the spaces communicate on chest CT and in order to try and avoid VATS decortication we will start intrapleural lytics. I have chosen the lower dose of lytics given his elevated INR. He states this is the first he has heard of his blood being thin. He denies any liver disease but is on a CIWA protocol but it does not appear as though he has a large drinking history. The pleural fluid was only sent for culture and pathology unf ortunately, but without any bacteria seen and no pH was tested (hence not an empyema). He is receiving appropriate antibiotics and has IS and Acapella at bedside. We will plan for bid administration of intrapleural lytics for a total of 3 days unless a complication arises. Left loculated pleural effusion - tPA 5mg and dornase 2.5mg bid into chest tube - I will be doing the infusions as there is a locum for surgery on this weekend and cannot administer them - will continue to monitor chest tube output - if he fails lytic therapy options would include placement of a second tube into one of the other pockets and lytics versus transfer for VATS decortication - f/u path on fluid Pneumonia - on Zosyn and azithromycin - good choices, would keep them on unless cultures grow a bug - I have added urine antigen for stre pneurmo and legionella - f/u sputum culture Compressive atelectasis - agree with IS and Acapella History of Present Illness Narrative: This is a 60 yo man admitted for a loculated pleural effusion. He was experiencing nonspecific symptoms including some shortness of breath for approximately 1 week but then developed a coughing fit that then resulted in persistent left sided pleuritic chest pain which is what prompted him to seek medical attention. In the ED he was found to have a left sided loculated pleural effusion with two distinct loculated areas in addition to compressive atelectasis. Surgery placed a left sided chest tube with an appropriate location of the tube but he has had very minimal output thus far. CT surgery at [facility] [place] was consulted who recommended a trial of lytics prior to going down the VATS pathway. Today Kena is feeling well. He has some discomfort at the insertion site of the tube but otherwise has no complaints. He tells me he has never had a pneumonia in the past. His prior chest imaging include just CXR's from 2013 that do not find any effusions or abnormalities. Review of Systems All systems reviewed & are unremarkable except as noted in HPI and below PFSH All Active Problems (Updated 07/17/21 @ 10:51 by Tata Hodge MD) Compressive atelectasis (Acute) Loculated pleural effusion (Acute) Azotemia (Acute) DVT prophylaxis (Acute) Pleural effusion, left (Acute) Essential hypertension (Acute 12/25/12) Left lower lobe pneumonia (Acute) Posterior tibial tendon dysfunction (PTTD) of right lower extremity (Acute) Arthritis of right subtalar joint (Acute) Osteoarthritis of right midfoot (Acute) Pes planus of right foot (Acute) Enchondroma (Acute) Primary hypertension (Acute) Medical History Alcoholic liver disease (05/03/14) Depressive disorder Diverticulitis of colon with perforation Empyema lung Esophageal reflux Smoker Surgical History S/P partial colectomy (12/26/12) Family History Father Prostate cancer Sister No problems noted. Sister No problems noted. Brother No problems noted. Social History Smoking/Tobacco Use Status: Former Tobacco Use tobacco type: cigarettes and e- cigarettes Quit Date: 02/14/17 Second Hand Exposure: Yes Smoking risk assessment performed?: Yes Alcohol Intake: current Alcohol Intake frequency: a few times a week Alcohol type: beer Drug use: Never Substance use type: does not use Caregiver/Support person: No Household members: spouse Housing: house Communication Needs: None Pets and animals: Yes Pets and animals: cat(s) and dog(s) Sexually active: Yes Do you think of yourself as: straight/heterosexual Current gender identity: male What is your relationship status?: How often do you talk on the phone with friends or family?: once per week How often do you get together with friends or relatives?: once per week Do you belong to any clubs or organized social groups?: no Panel score (0-1 are the most socially isolated patients): 1 What type of physical activity do you participate in: none 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 Do you feel safe at home: Yes Do you feel safe in your relationship?: Yes Visit Medication and Allergies Active Medications Generic Name Dose Route Start Last Admin Trade Name Freq PRN Reason Stop Dose Admin Acetaminophen 0 mg 07/14/21 21:33 07/16/21 23:30 Acetaminophen 325 Mg Tab PO 650 mg Q4H PRN PRN Administration Al Hydrox/Mg Hydrox/Simethicone 30 ml 07/14/21 21:33 Mylanta Suspension 30 Ml Cup PO Q2H PRN PRN Albuterol Sulfate 2.5 mg 07/14/21 21:33 Albuterol 2.5 Mg/3 Ml Inh Soln Vial UPD Q2H PRN PRN Albuterol/Ipratropium 3 ml 07/14/21 21:33 Albuterol/Ipratropium 3 Ml Upd Vial UPD Q6H PRN PRN Amlodipine Besylate 10 mg 07/15/21 08:30 07/16/21 07:51 Amlodipine 10 Mg Tab PO 10 mg DAILY ANDERSON Administration Azithromycin 250 mg 07/15/21 08:30 07/16/21 07:50 Azithromycin 250 Mg Tab PO 250 mg DAILY ANDERSON Administration Alteplase, Recombinant 5 mg/ 0 mg 07/17/21 08:45 Sodium Chloride 50 ml UD Q12H ANDERSON Protocol Dornase Cole 2.5 mg/ Sterile 0 mg 07/17/21 08:45 Water 15 ml UD Q12H ANDERSON Protocol Dimethicone/Zinc Oxide 0 gm 07/14/21 21:33 Ryan Protect Cream 142 Gm Tube TP PRN PRN Docusate Sodium 100 mg 07/14/21 21:33 Docusate Sodium 100 Mg Cap PO TID PRN PRN Enoxaparin Sodium 40 mg 07/14/21 22:00 07/15/21 21:21 Enoxaparin 40 Mg/0.4 Ml Syr SC 40 mg Q24H ANDERSON Administration Folic Acid 1 mg 07/15/21 08:30 07/16/21 07:50 Folic Acid 1 Mg Tab PO 1 mg DAILY ANDERSON Administration Sodium Chloride 500 mls @ 0 mls/hr 07/14/21 18:55 07/16/21 11:40 Saline 500ml Bag IV 0 mls/hr PRN PRN Infusion As Directed Piperacillin Sod/Tazobactam 50 mls @ 12.5 mls/hr 07/16/21 14:00 07/17/21 05:20 Sod 3.375 gm/ Sodium Chloride IVPB 12.5 mls/hr Q8H ANDERSON Administration Protocol IV Miscellaneous Supplies 1 each 07/14/21 19:00 Iv Access IV [facility] Magnesium Hydroxide 30 ml 07/14/21 21:33 Milk Of Magnesia 30 Ml Cup PO DAILY PRN PRN Metoprolol Succinate 100 mg 07/15/21 08:30 07/16/21 07:50 Metoprolol Cr 100 Mg Tabcr PO 100 mg DAILY ANDERSON Administration Multivitamins 1 tab 07/15/21 08:30 07/16/21 07:50 Multivitamin Tab PO 1 tab DAILY ANDERSON Administration Omeprazole 20 mg 07/16/21 07:30 07/16/21 07:50 Omeprazole 20 Mg Capcr PO 20 mg DAILY@0730 ANDERSON Administration Polyethylene Glycol 17 gm 07/14/21 21:33 Polyethylene Glycol 3350 17 Gm Packet PO DAILY PRN PRN Constipation Sodium Chloride 0 ml 07/14/21 18:55 07/16/21 21:34 Normal Saline Flush 10 Ml Syr IVP 10 ml PRN PRN Administration Thiamine HCl 100 mg 07/15/21 08:30 07/16/21 07:50 Thiamine 100 Mg Tab PO 100 mg DAILY ANDERSON Administration Allergies lisinopril Adverse Reaction (Intermediate, Verified 07/14/21 18:42) Exam Narrative Exam Narrative: Gen: NAD, normal respiratory effort, well-nourished, chest tube functioning appropriately. No air leaks. Only 15cc output since midnight. HENT: PERRL, moist oral mucosa, No LAD or JVD Chest: No respiratory distress, normal appearance of chest,diminished breath sounds on left, otherwise good aeration Heart: regular rate and rhythym, no murmurs, rubs or gallops Abdomen: Non-distended, soft, non tender Extremities: No clubbing, edema, cyanosis, rashes Neuro: AAOx3 , non focal Psych: cooperative, appropriate mental affect Results Last Vital Signs Temp 36.5 C 07/17/21 07:35 Pulse 83 07/17/21 07:35 Resp 18 07/17/21 07:35 BP 123/77 07/17/21 07:35 Pulse Ox 96 07/17/21 07:35 Labs Result diagrams: 07/17/21 10:05 07/17/21 10:05 Labs: Laboratory Results - last 24 hr 07/15/21 07/16/21 07/16/21 04:50 15:55 15:55 Urine Color Yellow Urine Clarity Clear Urine pH 6.0 Ur Specific [place] 1.020 Urine Protein Trace H Urine Ketones Negative Urine Blood Large H Urine Nitrite Negative Urine Bilirubin Negative Urine Urobilinogen 0.2 Ur Leukocyte Esterase Negative Urine RBC >50 H Urine WBC 0-2 Ur Epithelial Cells Negative Urine Crystals Few Calcium Oxalate Urine Bacteria Negative Urine Mucus Negative Ur Culture Indicated? No Ur Random Creatinine 101.62 Ur Random Sodium Urine Glucose Negative Ur Strep pneumoniae Ag Negative 07/16/21 15:55 Urine Color Urine Clarity Urine pH Ur Specific [place] Urine Protein Urine Ketones Urine Blood Urine Nitrite Urine Bilirubin Urine Urobilinogen Ur Leukocyte Esterase Urine RBC Urine WBC Ur Epithelial Cells Urine Crystals Urine Bacteria Urine Mucus Ur Culture Indicated? Ur Random Creatinine Ur Random Sodium 69 Urine Glucose Ur Strep pneumoniae Ag Procedures Other Procedure Description/Findings: Intrapleural Lytic instillation Chest tube was interrogated and functioning well. Chest tube was clamped. 50cc with 5mg tPA and 15cc with dornase 2.5mg was administered through chest tube without complication at 1030. Patient tolerated procedure well with no discomfort. MARICHUY Tipton instructed to unclamp chest tube at 1130 (demonstration on how to unclamp was provided).
--- NOTE | 2021-07-17 08:47 | PDOC.CMPRO ---
- If Service Date Differs Date of service: 07/17/21 Time of Service: 08:48 Care Management Progress Note S/O:Kena was sitting up in bed when CM met with him. He engaged readily with CM and appeared to be in his usual good spirits. Kena informed CM that a new treatment is being started today. He is going to have injections of lytics (tPA and dornase) into his chest tube by Dr. Hodge for the next 3 days with the goal of loosing the collections in his pleural space and to increase drainage. Kena verbalized that he really hopes it is effective. He remains afebrile and his WBC has come down from 21.16 to 12.46 today. His BUN and creatinine are slowly coming down as well. A:Kena is a 60 year old man admitted on 07/14/21 with pneumonia and empyema P:Kena will likely be discharged home when medically ready. He may need new home health services, depending on the course of his illness. Kena will follow up with his community providers and plan of care and transport with family. CM will continue to support Kena and assess for ongoing discharge concerns.
[2021-07-17] MEDS: amLODIPine 10 MG TAB PO (09:18)
[2021-07-17] MEDS: Azithromycin 250 MG TAB PO (09:18)
[2021-07-17] MEDS: Folic Acid 1 MG TAB PO (09:19)
[2021-07-17] MEDS: Multivitamin TAB 1 TAB PO (09:19)
[2021-07-17] MEDS: Metoprolol CR 100 MG TABCR PO (09:19)
[2021-07-17] MEDS: Thiamine 100 MG TAB PO (09:19)
[2021-07-17] MEDS: Omeprazole 20 MG CAPCR PO (09:19)
[2021-07-17 10:11] LABS: Abs Immature Grans 0.09 10^3/uL (0.0-0.06); Absolute Basophil Count 0.05 10^3/uL (0.0-0.2); Basophils % 0.4; HCT 29.3 % (40.0-50.0); HGB 9.3 g/dL (13.5-17.5); Immature Grans % 0.7; Lymphocytes % 13.2; MCH 29.2 pg (27.0-33.0); MCHC 31.7 % (32.0-36.0); MCV 92 fL (80-95); Monocytes % 6.4; Neutrophils % 76.3; Platelet Count 635 10^3/uL (130-400); RBC 3.18 10^6/uL (4.36-5.78); RDW-SD 43.8 fL; WBC 12.46 10^3/uL (4.4-10.8)
[2021-07-17 10:14] LABS: Absolute Eosinophil Count 0.37 10^3/uL (0.0-0.7); Absolute Lymphocyte Count 1.64 10^3/uL (1.2-3.4); Absolute Neutrophil Count 9.51 10^3/uL (1.2-6.7)
[2021-07-17] MEDS: Normal Saline Flush 10 ML SYR IVP ×6 (10:16→23:25)
[2021-07-17 10:23] LABS: Anion Gap 9.9 mmol/L (3-11); BUN 23 mg/dL (7-18); CO2 25.1 mmol/L (21.0-32.0); CREATININE 1.4 mg/dL (0.70-1.30); Calcium 9.1 mg/dL (8.5-10.1); Chloride 105 mmol/L (98-107); Estimated GFR 51.87 (mL/min/1.73m2); Glucose 110 mg/dL (74-106); Sodium 140 mmol/L (136-145)
--- NOTE | 2021-07-17 14:23 | W.PM.PROGNOT ---
Date of Service Date of service: 07/17/21 Time of Service: 13:23 Assessment and Plan Assessment and plan (1) Pleural effusion, left: Status: Acute Assessment and plan: Pleural fluid was never sent for chemistries or pH therefore technically not labeled as of exudate or empyema however the patient is clearly draining purulent material from his pleural catheter. He is growing rare gram-positive roni from the pleural catheter. Initial gram stain showed no bacteria but many white blood cells. Overnight his white blood cell count is dropped from 21,000-12,000. Clinically this is behaving like an empyema. I discussed his case this morning with Dr. Hodge and she is recommending 3-day trial of fibrinolytics and she will manage the protocol for this. He may need a second pleural catheter to drain another area of loculated fluid. Is not clear whether these 2 collections of fluid in his left hemithorax connected or not but if he fails to drain them he will either need a VATS procedure or a second pleural catheter to drain the other loculated effusion. Per my discussion with Dr. Heaton she feels that he needs a VATS procedure after she reviewed his CT scans and chest x-ray. Patient has tentatively been accepted for transfer to [facility] to the cardiothoracic service of Dr. Prabhu Heaton pending bed availability. I discussed this with the patient and his and while they would like to remain local if the fibrinolytics is working they do not want to hesitate being transferred to receive definitive care. They understand that [facility] did not have any beds available today and they are willing to consider transfer to [facility] if needed. I recommend that they give the fibrinolytics a chance to work and told him that he has been put on a 3-day course of receiving fibrinolytics twice a day. Patient remains on Zosyn and azithromycin. I will continue current antibiotic treatment pending identification of his pleural cultures. Blood cultures have been no growth. Addendum: patient now febrile this afternoon at 38.7 C and with the pleural fluid showing GP roni, I will add Vancomycin until we get i.d. and sensitivity on the organism. (2) Compressive atelectasis: Status: Acute Assessment and plan: Encourage pulmonary toiletry with incentive spirometry and Acapella. Encourage ambulation and mobilization. (3) Left lower lobe pneumonia: Status: Acute Assessment and plan: treatment as above Subjective Subjective Interval history since last seen: Kena has been up out of bed ambulating. He has some mild left-sided chest discomfort since the pleural catheter was in place but no severe pleuritic pains. At rest he is not short of breath but gets dyspneic with activity. He has had no hypoxemia. Overnight his pleural catheter only drained 45 mL. I discussed his case with Dr. Hodge as well as I had a phone consultation with cardiothoracic surgery at [facility] speaking with Dr. Heaton. Dr. Ortiz is recommending transfer to [facility] for a VATS procedure. Dr. Hodge reviewed the CT scan and recommends giving fibrinolytics with dornase and tPA. Fibrinolytics were initiated. Exam Narrative Exam Narrative: Late middle-aged white male lying in bed in no acute distress. Not requiring any supplemental oxygen. Lungs are clear on the right left side he has diminished breath sounds in the left base no expiratory wheezing. Pleural catheter in the left midaxillary line with no induration or edema around the site of entry. Pleural catheter is draining purulent material Heart is regular to slightly tachycardic Abdomen soft nondistended nontender Objective Last Vital Signs Temp 36.5 C 07/17/21 07:35 Pulse 83 07/17/21 07:35 Resp 18 07/17/21 07:35 BP 123/77 07/17/21 07:35 Pulse Ox 96 07/17/21 07:35 Laboratory Results - last 24 hr 07/15/21 07/16/21 07/16/21 04:50 15:55 15:55 WBC RBC Hgb Hct MCV MCH MCHC RDW Plt Count MPV Immature Gran % Neutrophils % Lymphocytes % Monocytes % Eosinophils % Basophils % Nucleated RBC % Absolute Neutrophils Absolute Lymphocytes Absolute Monocytes Absolute Eosinophils Absolute Basophils Sodium Potassium Chloride Carbon Dioxide Anion Gap BUN Creatinine Estimated GFR/1.73 m2 Glucose Calcium C-Reactive Protein Urine Color Yellow Urine Clarity Clear Urine pH 6.0 Ur Specific [place] 1.020 Urine Protein Trace H Urine Ketones Negative Urine Blood Large H Urine Nitrite Negative Urine Bilirubin Negative Urine Urobilinogen 0.2 Ur Leukocyte Esterase Negative Urine RBC >50 H Urine WBC 0-2 Ur Epithelial Cells Negative Urine Crystals Few Calcium Oxalate Urine Bacteria Negative Urine Mucus Negative Ur Culture Indicated? No Ur Random Creatinine 101.62 Ur Random Sodium Urine Glucose Negative Ur Strep pneumoniae Ag Negative 07/16/21 07/17/21 07/17/21 15:55 10:05 10:05 WBC 12.46 H RBC 3.18 L Hgb 9.3 L Hct 29.3 L MCV 92 MCH 29.2 MCHC 31.7 L D RDW 13.0 Plt Count 635 H MPV 9.0 Immature Gran % 0.7 Neutrophils % 76.3 Lymphocytes % 13.2 Monocytes % 6.4 Eosinophils % 3.0 Basophils % 0.4 Nucleated RBC % 0.0 Absolute Neutrophils 9.51 H Absolute Lymphocytes 1.64 Absolute Monocytes 0.80 Absolute Eosinophils 0.37 Absolute Basophils 0.05 Sodium 140 Potassium 4.0 Chloride 105 Carbon Dioxide 25.1 Anion Gap 9.9 BUN 23 H Creatinine 1.4 H Estimated GFR/1.73 m2 51.87 Glucose 110 H Calcium 9.1 C-Reactive Protein 17.30 H Urine Color Urine Clarity Urine pH Ur Specific [place] Urine Protein Urine Ketones Urine Blood Urine Nitrite Urine Bilirubin Urine Urobilinogen Ur Leukocyte Esterase Urine RBC Urine WBC Ur Epithelial Cells Urine Crystals Urine Bacteria Urine Mucus Ur Culture Indicated? Ur Random Creatinine Ur Random Sodium 69 Urine Glucose Ur Strep pneumoniae Ag Objective Narrative Objective Narrative: I reevaluated the patient in the afternoon and discussed his case with him and his . Since the patient received fibrinolytics he has had increased output from the chest tube and has had 445 mL PAWSS Have you Been Recently Intoxicated or Drunk Within the Last 30 days?: No Have you Ever Experienced Previous Episodes of Alcohol Withdrawal?: No Have you ever Experienced Withdrawal Seizures?: No Have you ever Experienced Delirium Tremens(DT)s?: No Have you ever undergone Alcohol Rehabilitation Treatment (i.e, inpt ot outpatient treatment programs)?: No Have you ever Experienced Blackouts?: No Have you ever Combined Alcohol with other Downers within the last 90 days?: No Have you ever Combined Alcohol with any other Substance of Abuse during the last 90 days?: No Positive Blood Alcohol level on Presentation? [PCS.BAL]: No Evidence of Increased Autonomic Activity (i.e. HR>120, tremor, sweating, agitation, nausea)?: No Result: 0
--- NOTE | 2021-07-17 16:15 | W.PM.OP ---
Date of service: 07/17/21 Time of Service: 16:00 Operative Note Operative Note Refer to Anesthesia Record Procedure Description: Intrapleural lytic instillation Chest tube was interrogated and functioning well. There was more purulent material draining since last lytic dose. Chest tube clamped. 50cc with 5mg tPA and 15cc with dornase 2.5mg was administered through chest tube without complication at 1600. Patient tolerated procedure well with no discomfort. MARICHUY Tipton instructed to unclamp chest tube at 1700. Tata Hodge MD Pulmonary & Critical Care
[2021-07-17] MEDS: Acetaminophen 325 MG TAB PO (17:20)
[2021-07-17] MEDS: MORPHine 2 MG/ML SYR IV ×2 (20:49→23:23)
[2021-07-17] MEDS: VANCOMYCIN/WATER (PEG) 1.5 GM/300 ML BAG IV (21:47)
[2021-07-18 00:58] VITALS: BP 129/83; PULSE 95; RESP 19; TEMP 37.5; O2SAT 94
[2021-07-18] MEDS: PIPERACILLIN/TAZO 3.375 GM in Normal Saline 50 ML IVPB ×2 (01:00→08:12)
[2021-07-18 06:48] LABS: INR 1.2 (0.9-1.1); Prothrombin Time 11.7 sec (9.3-11.0)
[2021-07-18 07:00] VITALS: BP 108/74; PULSE 79; RESP 20; TEMP 36.9; O2SAT 95
[2021-07-18] MEDS: Folic Acid 1 MG TAB PO (08:11)
[2021-07-18] MEDS: amLODIPine 10 MG TAB PO (08:11)
[2021-07-18] MEDS: Omeprazole 20 MG CAPCR PO (08:11)
[2021-07-18] MEDS: Azithromycin 250 MG TAB PO (08:12)
[2021-07-18] MEDS: Thiamine 100 MG TAB PO (08:12)
[2021-07-18] MEDS: Metoprolol CR 100 MG TABCR PO (08:12)
[2021-07-18] MEDS: Multivitamin TAB 1 TAB PO (08:12)
--- NOTE | 2021-07-18 08:23 | PGE_ITS ---
Assessment and Plan Assessment and plan (1) Empyema lung: Status: Acute (2) Compressive atelectasis: Status: Acute (3) Left lower lobe pneumonia: Status: Acute Assessment and plan: This is a 60 yo man with no prior history of pneumonia's or lung issues who is admitted for a loculated pleural effusion. He is now growing gram positive roni from the pleural fluid making this a true empyema. The pleural space is complicated with septations creating 3 different spaces. It does not appear as though the spaces communicate on chest CT and in order to try and avoid VATS decortication we will continue with intrapleural lytics. I have chosen the lower dose of lytics given his elevated INR - I am still unclear about why his INR is elevated - he had an abdominal ultrasound in 2013 that was normal. He had a decent response to the intrapleural lytics yesterday and is not having any adverse effects so will continue this regimen. I would recommend a repeat chest CT on Tuesday to assess improvement and see if all loculations have been treated. Given the gram positive roni seen on pleural fluid I will order for MRSA nares. Zosyn/azithro will cover for strep, however we should frantz his antibiotics to ceftriaxone from Zosyn, given that this is in fact gram positive. We will plan for bid administration of intrapleural lytics for a total of 3 days unless a complication arises. Gram positive empyema - tPA 5mg and dornase 2.5mg bid into chest tube - I will be doing the infusions as there is a locum for surgery on this weekend and cannot administer them - will continue to monitor chest tube output - if he fails lytic therapy options would include placement of a second tube into one of the other pockets and lytics versus transfer for VATS decortication - f/u path on fluid - recommend chest CT without contrast on Tuesday after full intrapleural lytic regimen Pneumonia with gram positive empyema - recommend antibiotic stewardship given culture data - would change Zosyn to ceftriaxone - continue azithromycin - MRSA nares added today - urine legionella and strep pneumo are negative Compressive atelectasis - agree with IS and [facility] Date Of Service Date of service: 07/18/21 Time of Service: 09:00 Subjective Note Note: We started intrapleural lytics on Kena yesterday morning. He had a total or 335cc of output in 24 hours, which is much improved from pre-lytics and the output was certainly more purulent post lytics, whereas the output I saw prior to lytics yesterday was more serosanguinous. Today he will be due for doses 3 and 4 out of 6. His pleural fluid is now positive for gram positive roni. He has not had a MRSA nares completed. His white count has dramatically improved after initiation of lytics and his Hb is stable. He had a rough night with insertion site pain but is feeling good this morning. His breathing is stable. Exam Narrative Exam Narrative: Gen:?NAD, normal respiratory effort, well-nourished, chest tube functioning a ppropriately. No air leaks. 335cc output in 24 hours. HENT:?PERRL, moist oral? mucosa, No LAD or JVD Chest:?No respiratory distress, normal appearance of chest,diminished breath sounds on left, otherwise good aeration Heart:?regular rate and rhythym, no murmurs, rubs or gallops Abdomen:?Non-distended, soft, non tender Extremities:?No clubbing, edema, cyanosis, rashes Neuro:?AAOx3 , non focal Psych:?cooperative, appropriate mental affect Objective Last Vital Signs Temp 37.5 C 07/18/21 00:58 Pulse 95 H 07/18/21 00:58 Resp 19 07/18/21 00:58 BP 129/83 07/18/21 00:58 Pulse Ox 94 07/18/21 00:58 Laboratory Results - last 24 hr 07/15/21 07/17/21 07/17/21 04:50 10:05 10:05 WBC 12.46 H RBC 3.18 L Hgb 9.3 L Hct 29.3 L MCV 92 MCH 29.2 MCHC 31.7 L D RDW 13.0 Plt Count 635 H MPV 9.0 Immature Gran % 0.7 Neutrophils % 76.3 Lymphocytes % 13.2 Monocytes % 6.4 Eosinophils % 3.0 Basophils % 0.4 Nucleated RBC % 0.0 Absolute Neutrophils 9.51 H Absolute Lymphocytes 1.64 Absolute Monocytes 0.80 Absolute Eosinophils 0.37 Absolute Basophils 0.05 PT INR Sodium 140 Potassium 4.0 Chloride 105 Carbon Dioxide 25.1 Anion Gap 9.9 BUN 23 H Creatinine 1.4 H Estimated GFR/1.73 m2 51.87 Glucose 110 H Calcium 9.1 C-Reactive Protein 17.30 H Ur Strep pneumoniae Ag Negative 07/18/21 05:55 WBC RBC Hgb Hct MCV MCH MCHC RDW Plt Count MPV Immature Gran % Neutrophils % Lymphocytes % Monocytes % Eosinophils % Basophils % Nucleated RBC % Absolute Neutrophils Absolute Lymphocytes Absolute Monocytes Absolute Eosinophils Absolute Basophils PT 11.7 H INR 1.2 H Sodium Potassium Chloride Carbon Dioxide Anion Gap BUN Creatinine Estimated GFR/1.73 m2 Glucose Calcium C-Reactive Protein Ur Strep pneumoniae Ag Results Medications Medications: Active Medications Generic Name Dose Route Start Last Admin Trade Name Freq PRN Reason Stop Dose Admin Acetaminophen 0 mg 07/14/21 21:33 07/17/21 17:20 Acetaminophen 325 Mg Tab PO 650 mg Q4H PRN PRN Administration Al Hydrox/Mg Hydrox/Simethicone 30 ml 07/14/21 21:33 Mylanta Suspension 30 Ml Cup PO Q2H PRN PRN Albuterol Sulfate 2.5 mg 07/14/21 21:33 Albuterol 2.5 Mg/3 Ml Inh Soln Vial UPD Q2H PRN PRN Albuterol/Ipratropium 3 ml 07/14/21 21:33 Albuterol/Ipratropium 3 Ml Upd Vial UPD Q6H PRN PRN Amlodipine Besylate 10 mg 07/15/21 08:30 07/18/21 08:11 Amlodipine 10 Mg Tab PO 10 mg DAILY ANDERSON Administration Azithromycin 250 mg 07/15/21 08:30 07/18/21 08:12 Azithromycin 250 Mg Tab PO 250 mg DAILY ANDERSON Administration Alteplase, Recombinant 5 mg/ 0 mg 07/17/21 08:00 07/17/21 10:31 Sodium Chloride 50 ml UD 5 mg Q12H ANDERSON Administration Protocol Dornase Cole 2.5 mg/ Sterile 0 mg 07/17/21 08:00 07/17/21 10:31 Water 15 ml UD 2.5 mg Q12H ANDERSON Administration Protocol Dimethicone/Zinc Oxide 0 gm 07/14/21 21:33 Ryan Protect Cream 142 Gm Tube TP PRN PRN Docusate Sodium 100 mg 07/14/21 21:33 Docusate Sodium 100 Mg Cap PO TID PRN PRN Enoxaparin Sodium 40 mg 07/14/21 22:00 07/15/21 21:21 Enoxaparin 40 Mg/0.4 Ml Syr SC 40 mg Q24H ANDERSON Administration Folic Acid 1 mg 07/15/21 08:30 07/18/21 08:11 Folic Acid 1 Mg Tab PO 1 mg DAILY ANDERSON Administration Sodium Chloride 500 mls @ 0 mls/hr 07/14/21 18:55 07/16/21 11:40 Saline 500ml Bag IV 0 mls/hr PRN PRN Infusion As Directed Vancomycin HCl / Sodium 250 mls @ 0 mls/hr 07/17/21 20:15 Chloride IV .PER PROTOCOL ANDERSON Protocol Per Protocol Vancomycin/PEG/NADA/Lysine/Water 1.5 gm in 300 mls @ 150 mls/hr 07/17/21 22:00 07/17/21 23:47 Vancocin Injection IV Infused Q12H ANDERSON Infusion Piperacillin Sod/Tazobactam 50 mls @ 12.5 mls/hr 07/18/21 08:00 07/18/21 08:12 Sod 3.375 gm/ Sodium Chloride IVPB 12.5 mls/hr Q8H ANDERSON Administration Protocol IV Miscellaneous Supplies 1 each 07/14/21 19:00 Iv Access IV DIRECTED [facility] Magnesium Hydroxide 30 ml 07/14/21 21:33 Milk Of Magnesia 30 Ml Cup PO DAILY PRN PRN Metoprolol Succinate 100 mg 07/15/21 08:30 07/18/21 08:12 Metoprolol Cr 100 Mg Tabcr PO 100 mg DAILY ANDERSON Administration Morphine Sulfate 2 mg 07/17/21 20:27 07/17/21 23:23 Morphine 2 Mg/Ml Syr IV 2 mg Q30MIN PRN Administration Multivitamins 1 tab 07/15/21 08:30 07/18/21 08:12 Multivitamin Tab PO 1 tab DAILY ANDERSON Administration Omeprazole 20 mg 07/16/21 07:30 07/18/21 08:11 Omeprazole 20 Mg Capcr PO 20 mg DAILY@0730 ANDERSON Administration Polyethylene Glycol 17 gm 07/14/21 21:33 Polyethylene Glycol 3350 17 Gm Packet PO DAILY PRN PRN Constipation Sodium Chloride 0 ml 07/14/21 18:55 07/17/21 23:25 Normal Saline Flush 10 Ml Syr IVP 10 ml PRN PRN Administration Thiamine HCl 100 mg 07/15/21 08:30 07/18/21 08:12 Thiamine 100 Mg Tab PO 100 mg DAILY ANDERSON Administration Allergies lisinopril Adverse Reaction (Intermediate, Verified 07/14/21 18:42) Labs Result Diagrams: 07/17/21 10:05 07/17/21 10:05 Labs: 07/14/21 22:23 Blood Blood Culture - Preliminary NO GROWTH 72 HOURS 07/14/21 22:17 Blood Blood Culture - Preliminary NO GROWTH 72 HOURS 07/17/21 20:48 Blood Blood Culture - Pending 07/17/21 20:37 Blood Blood Culture - Pending 07/15/21 16:34 Peritoneal Body Fluid Culture - Preliminary Gram Positive Roni 07/15/21 16:34 Peritoneal Gram Stain - Final 07/15/21 17:24 Sputum Sputum Culture - Pending 07/15/21 17:24 Sputum Gram Stain - Pending 07/15/21 16:34 Chest - Left Lower Anaerobic Culture - Pending Laboratory Tests Range/Units 07/14/21 07/14/21 07/14/21 19:10 19:10 19:10 WBC (4.4-10.8) 10^3/uL 21.83 H RBC (4.36-5.78) 10^6/uL 3.36 L Hgb (13.5-17.5) g/dL 10.1 L Hct (40.0-50.0) % 30.2 L MCV (80-95) fL 90 MCH (27.0-33.0) pg 30.1 MCHC (32.0-36.0) % 33.4 RDW (11.8-14.1) % 12.8 Plt Count (130-400) 10^3/uL 717 H MPV (8.0-11.0) fL 9.5 Immature Gran % 0.8 Neutrophils % 84.2 Lymphocytes % 6.6 Monocytes % 7.2 Eosinophils % 0.9 Basophils % 0.3 Nucleated RBC % (0.0-0.3) % 0.0 Absolute Neutrophils (1.2-6.7) 10^3/uL 18.38 H Absolute Lymphocytes (1.2-3.4) 10^3/uL 1.44 Absolute Monocytes (0.1-0.8) 10^3/uL 1.57 H Absolute Eosinophils (0.0-0.7) 10^3/uL 0.20 Absolute Basophils (0.0-0.2) 10^3/uL 0.07 RBC Morphology Normal PT (9.3-11.0) sec 11.7 H INR (0.9-1.1) 1.2 H APTT (21.0-27.5) sec 35.2 H VBG Lactate (0.6-1.4) mmol/L Sodium (136-145) mmol/L 138 Potassium (3.5-5.1) mmol/L 4.0 Chloride (98-107) mmol/L 101 Carbon Dioxide (21.0-32.0) mmol/L 23.5 Anion Gap (3-11) mmol/L 13.5 H BUN (7-18) mg/dL 29 H Creatinine (0.70-1.30) mg/dL 2.4 H Estimated GFR/1.73 m2 (mL/min/1.73m2) 27.85 Glucose (74-106) mg/dL 116 H Calcium (8.5-10.1) mg/dL 9.1 Magnesium (1.8-2.4) mg/dL 1.3 L Total Bilirubin (0.2-1.0) mg/dL 0.3 GGT (15-85) U/L AST (15-37) U/L 56 H ALT (16-63) U/L 74 H Alkaline Phosphatase (46-116) U/L 206 H Lactate Dehydrogenase (85-227) U/L Troponin I (<or=60) ng/L < 50 C-Reactive Protein (0.0-0.3) mg/dL Total Protein (6.4-8.2) g/dL 8.6 H Albumin (3.4-5.0) g/dL 2.0 L Procalcitonin ng/mL Urine Color (Yellow) Urine Clarity (Clear) Urine pH (5-8) Ur Specific [place] (1.005-1.025) Urine Protein (Negative) mg/dL Urine Ketones (Negative) mg/dL Urine Blood (Negative) Urine Nitrite (Negative) Urine Bilirubin (Negative) Urine Urobilinogen (Up TO 0.2) EU/dL Ur Leukocyte Esterase (Negative) Urine RBC (0-2) HPF Urine WBC (0-5) HPF Ur Epithelial Cells (Negative) HPF Urine Crystals (Negative) HPF Urine Bacteria (Negative) HPF Urine Mucus (Negative) Ur Culture Indicated? Ur Random Creatinine mg/dL Ur Random Sodium mmol/L Urine Glucose (Negative) mg/dL COVID-19 Source SARS-CoV-2 (PCR) (Negative) Influenza Type A (PCR) (Negative) Influenza Type B (PCR) (Negative) Urine Legionella Ag (Negative) RSV (PCR) (Negative) Ur Strep pneumoniae Ag (Negative) Range/Units 07/14/21 07/14/21 07/14/21 20:15 22:17 22:17 WBC (4.4-10.8) 10^3/uL RBC (4.36-5.78) 10^6/uL Hgb (13.5-17.5) g/dL Hct (40.0-50.0) % MCV (80-95) fL MCH (27.0-33.0) pg MCHC (32.0-36.0) % RDW (11.8-14.1) % Plt Count (130-400) 10^3/uL MPV (8.0-11.0) fL Immature Gran % Neutrophils % Lymphocytes % Monocytes % Eosinophils % Basophils % Nucleated RBC % (0.0-0.3) % Absolute Neutrophils (1.2-6.7) 10^3/uL Absolute Lymphocytes (1.2-3.4) 10^3/uL Absolute Monocytes (0.1-0.8) 10^3/uL Absolute Eosinophils (0.0-0.7) 10^3/uL Absolute Basophils (0.0-0.2) 10^3/uL RBC Morphology PT (9.3-11.0) sec INR (0.9-1.1) APTT (21.0-27.5) sec VBG Lactate (0.6-1.4) mmol/L 0.9 Sodium (136-145) mmol/L Potassium (3.5-5.1) mmol/L Chloride (98-107) mmol/L Carbon Dioxide (21.0-32.0) mmol/L Anion Gap (3-11) mmol/L BUN (7-18) mg/dL Creatinine (0.70-1.30) mg/dL Estimated GFR/1.73 m2 (mL/min/1.73m2) Glucose (74-106) mg/dL Calcium (8.5-10.1) mg/dL Magnesium (1.8-2.4) mg/dL Total Bilirubin (0.2-1.0) mg/dL GGT (15-85) U/L AST (15-37) U/L ALT (16-63) U/L Alkaline Phosphatase (46-116) U/L Lactate Dehydrogenase (85-227) U/L Troponin I (<or=60) ng/L C-Reactive Protein (0.0-0.3) mg/dL Total Protein (6.4-8.2) g/dL Albumin (3.4-5.0) g/dL Procalcitonin ng/mL 0.3 Urine Color (Yellow) Urine Clarity (Clear) Urine pH (5-8) Ur Specific [place] (1.005-1.025) Urine Protein (Negative) mg/dL Urine Ketones (Negative) mg/dL Urine Blood (Negative) Urine Nitrite (Negative) Urine Bilirubin (Negative) Urine Urobilinogen (Up TO 0.2) EU/dL Ur Leukocyte Esterase (Negative) Urine RBC (0-2) HPF Urine WBC (0-5) HPF Ur Epithelial Cells (Negative) HPF Urine Crystals (Negative) HPF Urine Bacteria (Negative) HPF Urine Mucus (Negative) Ur Culture Indicated? Ur Random Creatinine mg/dL Ur Random Sodium mmol/L Urine Glucose (Negative) mg/dL COVID-19 Source Nasopharynx SARS-CoV-2 (PCR) (Negative) Negative Influenza Type A (PCR) (Negative) Negative Influenza Type B (PCR) (Negative) Negative Urine Legionella Ag (Negative) RSV (PCR) (Negative) Negative Ur Strep pneumoniae Ag (Negative) Range/Units 07/15/21 07/15/21 07/15/21 04:50 04:50 05:55 WBC (4.4-10.8) 10^3/uL RBC (4.36-5.78) 10^6/uL Hgb (13.5-17.5) g/dL Hct (40.0-50.0) % MCV (80-95) fL MCH (27.0-33.0) pg MCHC (32.0-36.0) % RDW (11.8-14.1) % Plt Count (130-400) 10^3/uL MPV (8.0-11.0) fL Immature Gran % Neutrophils % Lymphocytes % Monocytes % Eosinophils % Basophils % Nucleated RBC % (0.0-0.3) % Absolute Neutrophils (1.2-6.7) 10^3/uL Absolute Lymphocytes (1.2-3.4) 10^3/uL Absolute Monocytes (0.1-0.8) 10^3/uL Absolute Eosinophils (0.0-0.7) 10^3/uL Absolute Basophils (0.0-0.2) 10^3/uL RBC Morphology PT (9.3-11.0) sec INR (0.9-1.1) APTT (21.0-27.5) sec VBG Lactate (0.6-1.4) mmol/L Sodium (136-145) mmol/L 139 Potassium (3.5-5.1) mmol/L 3.7 Chloride (98-107) mmol/L 106 Carbon Dioxide (21.0-32.0) mmol/L 21.1 Anion Gap (3-11) mmol/L 11.9 H BUN (7-18) mg/dL 27 H Creatinine (0.70-1.30) mg/dL 1.7 H Estimated GFR/1.73 m2 (mL/min/1.73m2) 41.46 Glucose (74-106) mg/dL 130 H Calcium (8.5-10.1) mg/dL 8.7 Magnesium (1.8-2.4) mg/dL 1.9 Total Bilirubin (0.2-1.0) mg/dL 0.3 GGT (15-85) U/L 63 AST (15-37) U/L 32 ALT (16-63) U/L 59 Alkaline Phosphatase (46-116) U/L 183 H Lactate Dehydrogenase (85-227) U/L 136 Troponin I (<or=60) ng/L C-Reactive Protein (0.0-0.3) mg/dL Total Protein (6.4-8.2) g/dL 7.2 Albumin (3.4-5.0) g/dL 1.6 L Procalcitonin ng/mL Urine Color (Yellow) Urine Clarity (Clear) Urine pH (5-8) Ur Specific [place] (1.005-1.025) Urine Protein (Negative) mg/dL Urine Ketones (Negative) mg/dL Urine Blood (Negative) Urine Nitrite (Negative) Urine Bilirubin (Negative) Urine Urobilinogen (Up TO 0.2) EU/dL Ur Leukocyte Esterase (Negative) Urine RBC (0-2) HPF Urine WBC (0-5) HPF Ur Epithelial Cells (Negative) HPF Urine Crystals (Negative) HPF Urine Bacteria (Negative) HPF Urine Mucus (Negative) Ur Culture Indicated? Ur Random Creatinine mg/dL Ur Random Sodium mmol/L Urine Glucose (Negative) mg/dL COVID-19 Source SARS-CoV-2 (PCR) (Negative) Influenza Type A (PCR) (Negative) Influenza Type B (PCR) (Negative) Urine Legionella Ag (Negative) Negative RSV (PCR) (Negative) Ur Strep pneumoniae Ag (Negative) Negative Range/Units 07/15/21 07/16/21 07/16/21 05:55 05:40 05:40 WBC (4.4-10.8) 10^3/uL 20.89 H 21.16 H RBC (4.36-5.78) 10^6/uL 3.16 L 3.16 L Hgb (13.5-17.5) g/dL 9.6 L 9.4 L Hct (40.0-50.0) % 28.5 L 29.0 L MCV (80-95) fL 90 92 MCH (27.0-33.0) pg 30.4 29.7 MCHC (32.0-36.0) % 33.7 32.4 D RDW (11.8-14.1) % 12.9 13.0 Plt Count (130-400) 10^3/uL 626 H 658 H MPV (8.0-11.0) fL 9.7 9.4 Immature Gran % 0.8 0.8 Neutrophils % 83.7 81.0 Lymphocytes % 6.7 8.4 Monocytes % 7.1 7.2 Eosinophils % 1.5 2.2 Basophils % 0.2 0.4 Nucleated RBC % (0.0-0.3) % 0.0 0.0 Absolute Neutrophils (1.2-6.7) 10^3/uL 17.48 H 17.14 H Absolute Lymphocytes (1.2-3.4) 10^3/uL 1.40 1.78 Absolute Monocytes (0.1-0.8) 10^3/uL 1.48 H 1.52 H Absolute Eosinophils (0.0-0.7) 10^3/uL 0.31 0.47 Absolute Basophils (0.0-0.2) 10^3/uL 0.04 0.08 RBC Morphology PT (9.3-11.0) sec INR (0.9-1.1) APTT (21.0-27.5) sec VBG Lactate (0.6-1.4) mmol/L Sodium (136-145) mmol/L 140 Potassium (3.5-5.1) mmol/L 3.9 Chloride (98-107) mmol/L 105 Carbon Dioxide (21.0-32.0) mmol/L 22.9 Anion Gap (3-11) mmol/L 12.1 H BUN (7-18) mg/dL 25 H Creatinine (0.70-1.30) mg/dL 1.6 H Estimated GFR/1.73 m2 (mL/min/1.73m2) 44.46 Glucose (74-106) mg/dL 120 H Calcium (8.5-10.1) mg/dL 8.9 Magnesium (1.8-2.4) mg/dL Total Bilirubin (0.2-1.0) mg/dL GGT (15-85) U/L AST (15-37) U/L ALT (16-63) U/L Alkaline Phosphatase (46-116) U/L Lactate Dehydrogenase (85-227) U/L Troponin I (<or=60) ng/L C-Reactive Protein (0.0-0.3) mg/dL Total Protein (6.4-8.2) g/dL Albumin (3.4-5.0) g/dL Procalcitonin ng/mL Urine Color (Yellow) Urine Clarity (Clear) Urine pH (5-8) Ur Specific [place] (1.005-1.025) Urine Protein (Negative) mg/dL Urine Ketones (Negative) mg/dL Urine Blood (Negative) Urine Nitrite (Negative) Urine Bilirubin (Negative) Urine Urobilinogen (Up TO 0.2) EU/dL Ur Leukocyte Esterase (Negative) Urine RBC (0-2) HPF Urine WBC (0-5) HPF Ur Epithelial Cells (Negative) HPF Urine Crystals (Negative) HPF Urine Bacteria (Negative) HPF Urine Mucus (Negative) Ur Culture Indicated? Ur Random Creatinine mg/dL Ur Random Sodium mmol/L Urine Glucose (Negative) mg/dL COVID-19 Source SARS-CoV-2 (PCR) (Negative) Influenza Type A (PCR) (Negative) Influenza Type B (PCR) (Negative) Urine Legionella Ag (Negative) RSV (PCR) (Negative) Ur Strep pneumoniae Ag (Negative) Range/Units 07/16/21 07/16/21 07/16/21 15:55 15:55 15:55 WBC (4.4-10.8) 10^3/uL RBC (4.36-5.78) 10^6/uL Hgb (13.5-17.5) g/dL Hct (40.0-50.0) % MCV (80-95) fL MCH (27.0-33.0) pg MCHC (32.0-36.0) % RDW (11.8-14.1) % Plt Count (130-400) 10^3/uL MPV (8.0-11.0) fL Immature Gran % Neutrophils % Lymphocytes % Monocytes % Eosinophils % Basophils % Nucleated RBC % (0.0-0.3) % Absolute Neutrophils (1.2-6.7) 10^3/uL Absolute Lymphocytes (1.2-3.4) 10^3/uL Absolute Monocytes (0.1-0.8) 10^3/uL Absolute Eosinophils (0.0-0.7) 10^3/uL Absolute Basophils (0.0-0.2) 10^3/uL RBC Morphology PT (9.3-11.0) sec INR (0.9-1.1) APTT (21.0-27.5) sec VBG Lactate (0.6-1.4) mmol/L Sodium (136-145) mmol/L Potassium (3.5-5.1) mmol/L Chloride (98-107) mmol/L Carbon Dioxide (21.0-32.0) mmol/L Anion Gap (3-11) mmol/L BUN (7-18) mg/dL Creatinine (0.70-1.30) mg/dL Estimated GFR/1.73 m2 (mL/min/1.73m2) Glucose (74-106) mg/dL Calcium (8.5-10.1) mg/dL Magnesium (1.8-2.4) mg/dL Total Bilirubin (0.2-1.0) mg/dL GGT (15-85) U/L AST (15-37) U/L ALT (16-63) U/L Alkaline Phosphatase (46-116) U/L Lactate Dehydrogenase (85-227) U/L Troponin I (<or=60) ng/L C-Reactive Protein (0.0-0.3) mg/dL Total Protein (6.4-8.2) g/dL Albumin (3.4-5.0) g/dL Procalcitonin ng/mL Urine Color (Yellow) Yellow Urine Clarity (Clear) Clear Urine pH (5-8) 6.0 Ur Specific [place] (1.005-1.025) 1.020 Urine Protein (Negative) mg/dL Trace H Urine Ketones (Negative) mg/dL Negative Urine Blood (Negative) Large H Urine Nitrite (Negative) Negative Urine Bilirubin (Negative) Negative Urine Urobilinogen (Up TO 0.2) EU/dL 0.2 Ur Leukocyte Esterase (Negative) Negative Urine RBC (0-2) HPF >50 H Urine WBC (0-5) HPF 0-2 Ur Epithelial Cells (Negative) HPF Negative Urine Crystals (Negative) HPF Few Calcium Oxalate Urine Bacteria (Negative) HPF Negative Urine Mucus (Negative) Negative Ur Culture Indicated? No Ur Random Creatinine mg/dL 101.62 Ur Random Sodium mmol/L 69 Urine Glucose (Negative) mg/dL Negative COVID-19 Source SARS-CoV-2 (PCR) (Negative) Influenza Type A (PCR) (Negative) Influenza Type B (PCR) (Negative) Urine Legionella Ag (Negative) RSV (PCR) (Negative) Ur Strep pneumoniae Ag (Negative) Range/Units 07/17/21 07/17/21 07/18/21 10:05 10:05 05:55 WBC (4.4-10.8) 10^3/uL 12.46 H RBC (4.36-5.78) 10^6/uL 3.18 L Hgb (13.5-17.5) g/dL 9.3 L Hct (40.0-50.0) % 29.3 L MCV (80-95) fL 92 MCH (27.0-33.0) pg 29.2 MCHC (32.0-36.0) % 31.7 L D RDW (11.8-14.1) % 13.0 Plt Count (130-400) 10^3/uL 635 H MPV (8.0-11.0) fL 9.0 Immature Gran % 0.7 Neutrophils % 76.3 Lymphocytes % 13.2 Monocytes % 6.4 Eosinophils % 3.0 Basophils % 0.4 Nucleated RBC % (0.0-0.3) % 0.0 Absolute Neutrophils (1.2-6.7) 10^3/uL 9.51 H Absolute Lymphocytes (1.2-3.4) 10^3/uL 1.64 Absolute Monocytes (0.1-0.8) 10^3/uL 0.80 Absolute Eosinophils (0.0-0.7) 10^3/uL 0.37 Absolute Basophils (0.0-0.2) 10^3/uL 0.05 RBC Morphology PT (9.3-11.0) sec 11.7 H INR (0.9-1.1) 1.2 H APTT (21.0-27.5) sec VBG Lactate (0.6-1.4) mmol/L Sodium (136-145) mmol/L 140 Potassium (3.5-5.1) mmol/L 4.0 Chloride (98-107) mmol/L 105 Carbon Dioxide (21.0-32.0) mmol/L 25.1 Anion Gap (3-11) mmol/L 9.9 BUN (7-18) mg/dL 23 H Creatinine (0.70-1.30) mg/dL 1.4 H Estimated GFR/1.73 m2 (mL/min/1.73m2) 51.87 Glucose (74-106) mg/dL 110 H Calcium (8.5-10.1) mg/dL 9.1 Magnesium (1.8-2.4) mg/dL Total Bilirubin (0.2-1.0) mg/dL GGT (15-85) U/L AST (15-37) U/L ALT (16-63) U/L Alkaline Phosphatase (46-116) U/L Lactate Dehydrogenase (85-227) U/L Troponin I (<or=60) ng/L C-Reactive Protein (0.0-0.3) mg/dL 17.30 H Total Protein (6.4-8.2) g/dL Albumin (3.4-5.0) g/dL Procalcitonin ng/mL Urine Color (Yellow) Urine Clarity (Clear) Urine pH (5-8) Ur Specific [place] (1.005-1.025) Urine Protein (Negative) mg/dL Urine Ketones (Negative) mg/dL Urine Blood (Negative) Urine Nitrite (Negative) Urine Bilirubin (Negative) Urine Urobilinogen (Up TO 0.2) EU/dL Ur Leukocyte Esterase (Negative) Urine RBC (0-2) HPF Urine WBC (0-5) HPF Ur Epithelial Cells (Negative) HPF Urine Crystals (Negative) HPF Urine Bacteria (Negative) HPF Urine Mucus (Negative) Ur Culture Indicated? Ur Random Creatinine mg/dL Ur Random Sodium mmol/L Urine Glucose (Negative) mg/dL COVID-19 Source SARS-CoV-2 (PCR) (Negative) Influenza Type A (PCR) (Negative) Influenza Type B (PCR) (Negative) Urine Legionella Ag (Negative) RSV (PCR) (Negative) Ur Strep pneumoniae Ag (Negative) Procedure Procedure and Findings -: Chest tube was interrogated and functioning well. Chest tube clamped. 50cc with 5mg tPA and 15cc with dornase 2.5mg was administered through chest tube without complication at 0900. Patient tolerated procedure well with no discomfort. MARICHUY Day instructed to unclamp chest tube at 1000 and reattach to suction.
[2021-07-18] MEDS: Normal Saline-STERILE FIELD 0.9% 10 ML SYR (09:36)
[2021-07-18] MEDS: Acetaminophen 325 MG TAB PO ×2 (10:59→18:17)
[2021-07-18] MEDS: MORPHine 2 MG/ML SYR IV (12:25)
[2021-07-18] MEDS: Normal Saline Flush 10 ML SYR IVP ×2 (12:25→18:59)
[2021-07-18] MEDS: VANCOMYCIN/WATER (PEG) 1.25 GM/250 ML BAG IV (12:25)
--- NOTE | 2021-07-18 12:39 | PGE_ITS ---
Date of Service Date of service: 07/18/21 Time of Service: 11:40 Assessment and Plan Assessment and plan (1) Empyema lung: Status: Acute Assessment and plan: Pleural fluid culture now growing Streptococcus species. Zosyn has been discontinued in favor of Rocephin 2 g daily. Continue azithromycin. Vancomycin has been discontinued. Continue fibrinolytic therapy as per pulmonary service. Check CT scan of the chest on Tuesday morning. If there is not been significant improvement then patient will be referred to CT surgeon at [facility]. (2) Compressive atelectasis: Status: Acute Assessment and plan: Encourage incentive spirometry and Acapella as well as ambulation and mobilization. (3) Azotemia: Status: Acute Assessment and plan: Despite IV fluids there was no significant change in his BUN/creatinine. IV fluids have been discontinued. I suspect his azotemia is due to some chronic renal disease possibly from his hypertension. (4) Essential hypertension: Status: Acute Assessment and plan: Continue current home blood pressure medications including amlodipine, Toprol XL however we will keep him off his hydrochlorothiazide but may resume his losartan with close monitoring of his renal function. Present time his blood pressure has not been an issue therefore I will continue to hold his losartan for now. (5) Alcohol abuse: Status: Chronic Assessment and plan: Patient has a history of alcohol abuse. He admits to drinking at least a 12 pack of beer per day however his states is more like 18 beers a day. Patient is being monitored per CIWA scale and is being treated with thiamine and folic acid and multivitamin.So far patient is exhibiting no evidence of alcohol withdrawal. CIWA scores were 0. Were now into his fourth hospital day and I think we can discontinue CIWA monitoring. (6) Elevated transaminase level: Status: Resolved Assessment and plan: Treat examination as were secondary to his chronic alcohol use now that he has been abstinent for 4 days his transaminases have normalized. Subjective Subjective Interval history since last seen: Patient has some mild to moderate left-sided chest pain at the pleural catheter insertion site. Pain seems to be worse during the immediate. After instillation of his fibrinolytics but he notes he feels better after the indwell is released and drained. Patient had 495 mL of output from his chest tube yesterday and so far today he is put out 140 mL at the time of my visit however he has now had a total of 275 mL as of the writing of this note. Patient denies any dyspnea at rest but gets mildly dyspneic with any activity. He has no sputum production. Exam Narrative Exam Narrative: Kena is alert and oriented he is lying on his right side he is in no acute respiratory distress. Lungs are clear on the right left side is with some basilar rales and now I am actually hearing some improved breath sounds at the left lung base. Heart regular rate and rhythm Objective Last Vital Signs Temp 36.9 C 07/18/21 07:00 Pulse 79 07/18/21 07:00 Resp 20 07/18/21 07:00 BP 108/74 07/18/21 07:00 Pulse Ox 95 07/18/21 07:00 Laboratory Results - last 24 hr 07/18/21 05:55 PT 11.7 H INR 1.2 H PAWSS Have you Been Recently Intoxicated or Drunk Within the Last 30 days?: No Have you Ever Experienced Previous Episodes of Alcohol Withdrawal?: No Have you ever Experienced Withdrawal Seizures?: No Have you ever Experienced Delirium Tremens(DT)s?: No Have you ever undergone Alcohol Rehabilitation Treatment (i.e, inpt ot outpatient treatment programs)?: No Have you ever Experienced Blackouts?: No Have you ever Combined Alcohol with other Downers within the last 90 days?: No Have you ever Combined Alcohol with any other Substance of Abuse during the last 90 days?: No Positive Blood Alcohol level on Presentation? [PCS.BAL]: No Evidence of Increased Autonomic Activity (i.e. HR>120, tremor, sweating, agitation, nausea)?: No Result: 0
[2021-07-18] MEDS: cefTRIAXone 2 GM/50 ML BAG IVPB (13:29)
[2021-07-18 15:01] VITALS: BP 102/62; PULSE 87; RESP 21; TEMP 36.8; O2SAT 95
--- NOTE | 2021-07-18 16:32 | W.PM.OP ---
Date of service: 07/18/21 Time of Service: 16:22 Operative Note Operative Note Procedure Description: Chest tube was interrogated and functioning well. Chest tube clamped. 50cc with 5mg tPA and 15cc with dornase 2.5mg was administered through chest tube without complication at 1622. Patient tolerated procedure well with no discomfort. MARICHUY Green instructed to unclamp chest tube at 1722 and reattach to suction.
[2021-07-18 18:29] VITALS: BP 126/78; PULSE 102; RESP 20; TEMP 37.7; O2SAT 95
[2021-07-18] MEDS: HYDROmorphone 2 MG/ML SYR IVP (18:58)
[2021-07-18] MEDS: Enoxaparin 40 MG/0.4 ML SYR SC (21:14)
[2021-07-19] VITALS (9 sets, daily range): BP systolic 112–143; BP diastolic 74–83; PULSE 87–101; RESP 16–22; TEMP 36.6–38.8; O2SAT 94–97
[2021-07-19] MEDS: Normal Saline Flush 10 ML SYR IVP ×4 (04:56→22:07)
[2021-07-19] MEDS: Acetaminophen 325 MG TAB PO ×2 (04:56→18:30)
[2021-07-19] MEDS: Metoprolol CR 100 MG TABCR PO (08:04)
[2021-07-19] MEDS: Folic Acid 1 MG TAB PO (08:05)
[2021-07-19] MEDS: Multivitamin TAB 1 TAB PO (08:05)
[2021-07-19] MEDS: Thiamine 100 MG TAB PO (08:05)
[2021-07-19] MEDS: Azithromycin 250 MG TAB PO (08:05)
[2021-07-19] MEDS: Omeprazole 20 MG CAPCR PO (08:05)
[2021-07-19] MEDS: amLODIPine 10 MG TAB PO (08:05)
--- NOTE | 2021-07-19 08:31 | W.PULMPROG ---
Assessment and Plan Assessment and plan (1) Empyema lung: Status: Acute (2) Compressive atelectasis: Status: Acute (3) Left lower lobe pneumonia: Status: Acute Assessment and plan: This is a 60 yo man with no prior history of pneumonia's or lung issues who is admitted for an empyema. The pleural space is complicated with septations creating 3 different spaces. It does not appear as though the spaces communicate on chest CT and in order to try and avoid VATS decortication we will continue with intrapleural lytics. I have chosen the lower dose of lytics given his elevated INR - I am still unclear about why his INR is elevated - he had an abdominal ultrasound in 2013 that was normal. We will plan for bid administration of intrapleural lytics for a total of 3 days unless a complication arises. His output is not as robust as I would have liked or expected unfortunately. He is growing strep pneumoniae and his Zosyn was changed to ceftriaxone - he does not need the 2g dosing so recommend changing this to 1g dosing. Strep pneumoniae empyema - tPA 5mg and dornase 2.5mg bid into chest tube - dose 5/6 given - I will be doing the infusions as there is a locum for surgery on this weekend and cannot administer them - will continue to monitor chest tube output - if he fails lytic therapy options would include placement of a second tube into one of the other pockets and lytics versus transfer for VATS decortication - depending on the location of any remaining loculations, if any, he may require IR placement of chest tube with CT guidance which again would need [facility] [place] f/u path on fluid - recommend chest CT without contrast on Tuesday after full intrapleural lytic regimen Pneumonia with gram positive empyema - would decrease ceftriaxone to standard 1g daily dosing as opposed to bacteremia or meningitis dosing - continue azithromycin - f/u MRSA nares Compressive atelectasis - agree with IS and [place] Date Of Service Date of service: 07/19/21 Time of Service: 09:00 Reason for Consult: Loculated pleural effusion Subjective Note Note: Kena is feeling fine today. He feels as though things in his chest are breaking up a bit. His chest tube output yesterday was lower than what I would have liked to see - only 180cc out. He is tolerating the lytics well and will continue this therapy. Exam Narrative Exam Narrative: Gen:?NAD, normal respiratory effort, well-nourished, chest tube functioning appropriately. No air leaks. 335cc output in 24 hours. HENT:?PERRL, moist oral? mucosa, No LAD or JVD Chest:?No respiratory distress, normal appearance of chest,diminished breath sounds on left with rhonchi, otherwise good aeration Heart:?regular rate and rhythym, no murmurs, rubs or gallops Abdomen:?Non-distended, soft, non tender Extremities:?No clubbing, edema, cyanosis, rashes Neuro:?AAOx3 , non focal Psych:?cooperative, appropriate mental affect Objective Last Vital Signs Temp 37.0 C 07/19/21 07:37 Pulse 87 07/19/21 07:37 Resp 20 07/19/21 07:37 BP 126/78 07/19/21 07:37 Pulse Ox 97 07/19/21 07:37 Results Medications Medications: Active Medications Generic Name Dose Route Start Last Admin Trade Name Freq PRN Reason Stop Dose Admin Acetaminophen 0 mg 07/14/21 21:33 07/19/21 04:56 Acetaminophen 325 Mg Tab PO 650 mg Q4H PRN PRN Administration Al Hydrox/Mg Hydrox/Simethicone 30 ml 07/14/21 21:33 Mylanta Suspension 30 Ml Cup PO Q2H PRN PRN Albuterol Sulfate 2.5 mg 07/14/21 21:33 Albuterol 2.5 Mg/3 Ml Inh Soln Vial UPD Q2H PRN PRN Albuterol/Ipratropium 3 ml 07/14/21 21:33 Albuterol/Ipratropium 3 Ml Upd Vial UPD Q6H PRN PRN Amlodipine Besylate 10 mg 07/15/21 08:30 07/19/21 08:05 Amlodipine 10 Mg Tab PO 10 mg DAILY ANDERSON Administration Azithromycin 250 mg 07/15/21 08:30 07/19/21 08:05 Azithromycin 250 Mg Tab PO 250 mg DAILY ANDERSON Administration Alteplase, Recombinant 5 mg/ 0 mg 07/18/21 16:30 07/19/21 04:30 Sodium Chloride 50 ml UD Not Given Q12H ANDERSON Protocol Dornase Cole 2.5 mg/ Sterile 0 mg 07/18/21 16:30 07/19/21 04:30 Water 15 ml UD Not Given Q12H [facility] Protocol Dimethicone/Zinc Oxide 0 gm 07/14/21 21:33 Ryan Protect Cream 142 Gm Tube TP PRN PRN Docusate Sodium 100 mg 07/14/21 21:33 Docusate Sodium 100 Mg Cap PO TID PRN PRN Enoxaparin Sodium 40 mg 07/14/21 22:00 07/18/21 21:14 Enoxaparin 40 Mg/0.4 Ml Syr SC 40 mg Q24H ANDERSON Administration Folic Acid 1 mg 07/15/21 08:30 07/19/21 08:05 Folic Acid 1 Mg Tab PO 1 mg DAILY ANDERSON Administration Hydromorphone HCl 1 - 2 mg 07/18/21 17:08 07/18/21 18:58 Hydromorphone 2 Mg/Ml Syr IVP 2 mg Q4H PRN PRN Administration Sodium Chloride 500 mls @ 0 mls/hr 07/14/21 18:55 07/16/21 11:40 Saline 500ml Bag IV 0 mls/hr PRN PRN Infusion As Directed Ceftriaxone Sodium/Dextrose 2 gm in 50 mls @ 100 mls/hr 07/18/21 12:00 07/18/21 14:00 Rocephin IVPB Infused Q24H ANDERSON Infusion IV Miscellaneous Supplies 1 each 07/14/21 19:00 Iv Access IV DIRECTED ANDERSON Magnesium Hydroxide 30 ml 07/14/21 21:33 Milk Of Magnesia 30 Ml Cup PO DAILY PRN PRN Metoprolol Succinate 100 mg 07/15/21 08:30 07/19/21 08:04 Metoprolol Cr 100 Mg Tabcr PO 100 mg DAILY ANDERSON Administration Multivitamins 1 tab 07/15/21 08:30 07/19/21 08:05 Multivitamin Tab PO 1 tab DAILY ANDERSON Administration Omeprazole 20 mg 07/16/21 07:30 07/19/21 08:05 Omeprazole 20 Mg Capcr PO 20 mg DAILY@0730 ANDERSON Administration Polyethylene Glycol 17 gm 07/14/21 21:33 Polyethylene Glycol 3350 17 Gm Packet PO DAILY PRN PRN Constipation Sodium Chloride 0 ml 07/14/21 18:55 07/19/21 04:56 Normal Saline Flush 10 Ml Syr IVP 10 ml PRN PRN Administration Thiamine HCl 100 mg 07/15/21 08:30 07/19/21 08:05 Thiamine 100 Mg Tab PO 100 mg DAILY ANDERSON Administration Tramadol HCl 50 mg 07/18/21 17:08 Tramadol 50 Mg Tab PO Q6H PRN PRN Allergies lisinopril Adverse Reaction (Intermediate, Verified 07/14/21 18:42) Labs Result Diagrams: 07/17/21 10:05 07/17/21 10:05 Labs: 07/14/21 22:23 Blood Blood Culture - Preliminary NO GROWTH 96 HOURS 07/14/21 22:17 Blood Blood Culture - Preliminary NO GROWTH 96 HOURS 07/17/21 20:48 Blood Blood Culture - Preliminary NO GROWTH 24 HOURS 07/17/21 20:37 Blood Blood Culture - Preliminary NO GROWTH 24 HOURS 07/18/21 11:03 Nose MRSA Screen - Pending 07/15/21 16:34 Peritoneal Body Fluid Culture - Preliminary Streptococcus species 07/15/21 16:34 Peritoneal Gram Stain - Final 07/15/21 17:24 Sputum Sputum Culture - Pending 07/15/21 17:24 Sputum Gram Stain - Pending 07/15/21 16:34 Chest - Left Lower Anaerobic Culture - Pending Laboratory Tests Range/Units 07/14/21 07/14/21 07/14/21 19:10 19:10 19:10 WBC (4.4-10.8) 10^3/uL 21.83 H RBC (4.36-5.78) 10^6/uL 3.36 L Hgb (13.5-17.5) g/dL 10.1 L Hct (40.0-50.0) % 30.2 L MCV (80-95) fL 90 MCH (27.0-33.0) pg 30.1 MCHC (32.0-36.0) % 33.4 RDW (11.8-14.1) % 12.8 Plt Count (130-400) 10^3/uL 717 H MPV (8.0-11.0) fL 9.5 Immature Gran % 0.8 Neutrophils % 84.2 Lymphocytes % 6.6 Monocytes % 7.2 Eosinophils % 0.9 Basophils % 0.3 Nucleated RBC % (0.0-0.3) % 0.0 Absolute Neutrophils (1.2-6.7) 10^3/uL 18.38 H Absolute Lymphocytes (1.2-3.4) 10^3/uL 1.44 Absolute Monocytes (0.1-0.8) 10^3/uL 1.57 H Absolute Eosinophils (0.0-0.7) 10^3/uL 0.20 Absolute Basophils (0.0-0.2) 10^3/uL 0.07 RBC Morphology Normal PT (9.3-11.0) sec 11.7 H INR (0.9-1.1) 1.2 H APTT (21.0-27.5) sec 35.2 H VBG Lactate (0.6-1.4) mmol/L Sodium (136-145) mmol/L 138 Potassium (3.5-5.1) mmol/L 4.0 Chloride (98-107) mmol/L 101 Carbon Dioxide (21.0-32.0) mmol/L 23.5 Anion Gap (3-11) mmol/L 13.5 H BUN (7-18) mg/dL 29 H Creatinine (0.70-1.30) mg/dL 2.4 H Estimated GFR/1.73 m2 (mL/min/1.73m2) 27.85 Glucose (74-106) mg/dL 116 H Calcium (8.5-10.1) mg/dL 9.1 Magnesium (1.8-2.4) mg/dL 1.3 L Total Bilirubin (0.2-1.0) mg/dL 0.3 GGT (15-85) U/L AST (15-37) U/L 56 H ALT (16-63) U/L 74 H Alkaline Phosphatase (46-116) U/L 206 H Lactate Dehydrogenase (85-227) U/L Troponin I (<or=60) ng/L < 50 C-Reactive Protein (0.0-0.3) mg/dL Total Protein (6.4-8.2) g/dL 8.6 H Albumin (3.4-5.0) g/dL 2.0 L Procalcitonin ng/mL Urine Color (Yellow) Urine Clarity (Clear) Urine pH (5-8) Ur Specific [place] (1.005-1.025) Urine Protein (Negative) mg/dL Urine Ketones (Negative) mg/dL Urine Blood (Negative) Urine Nitrite (Negative) Urine Bilirubin (Negative) Urine Urobilinogen (Up TO 0.2) EU/dL Ur Leukocyte Esterase (Negative) Urine RBC (0-2) HPF Urine WBC (0-5) HPF Ur Epithelial Cells (Negative) HPF Urine Crystals (Negative) HPF Urine Bacteria (Negative) HPF Urine Mucus (Negative) Ur Culture Indicated? Ur Random Creatinine mg/dL Ur Random Sodium mmol/L Urine Glucose (Negative) mg/dL COVID-19 Source SARS-CoV-2 (PCR) (Negative) Influenza Type A (PCR) (Negative) Influenza Type B (PCR) (Negative) Urine Legionella Ag (Negative) RSV (PCR) (Negative) Ur Strep pneumoniae Ag (Negative) Range/Units 07/14/21 07/14/21 07/14/21 20:15 22:17 22:17 WBC (4.4-10.8) 10^3/uL RBC (4.36-5.78) 10^6/uL Hgb (13.5-17.5) g/dL Hct (40.0-50.0) % MCV (80-95) fL MCH (27.0-33.0) pg MCHC (32.0-36.0) % RDW (11.8-14.1) % Plt Count (130-400) 10^3/uL MPV (8.0-11.0) fL Immature Gran % Neutrophils % Lymphocytes % Monocytes % Eosinophils % Basophils % Nucleated RBC % (0.0-0.3) % Absolute Neutrophils (1.2-6.7) 10^3/uL Absolute Lymphocytes (1.2-3.4) 10^3/uL Absolute Monocytes (0.1-0.8) 10^3/uL Absolute Eosinophils (0.0-0.7) 10^3/uL Absolute Basophils (0.0-0.2) 10^3/uL RBC Morphology PT (9.3-11.0) sec INR (0.9-1.1) APTT (21.0-27.5) sec VBG Lactate (0.6-1.4) mmol/L 0.9 Sodium (136-145) mmol/L Potassium (3.5-5.1) mmol/L Chloride (98-107) mmol/L Carbon Dioxide (21.0-32.0) mmol/L Anion Gap (3-11) mmol/L BUN (7-18) mg/dL Creatinine (0.70-1.30) mg/dL Estimated GFR/1.73 m2 (mL/min/1.73m2) Glucose (74-106) mg/dL Calcium (8.5-10.1) mg/dL Magnesium (1.8-2.4) mg/dL Total Bilirubin (0.2-1.0) mg/dL GGT (15-85) U/L AST (15-37) U/L ALT (16-63) U/L Alkaline Phosphatase (46-116) U/L Lactate Dehydrogenase (85-227) U/L Troponin I (<or=60) ng/L C-Reactive Protein (0.0-0.3) mg/dL Total Protein (6.4-8.2) g/dL Albumin (3.4-5.0) g/dL Procalcitonin ng/mL 0.3 Urine Color (Yellow) Urine Clarity (Clear) Urine pH (5-8) Ur Specific [place] (1.005-1.025) Urine Protein (Negative) mg/dL Urine Ketones (Negative) mg/dL Urine Blood (Negative) Urine Nitrite (Negative) Urine Bilirubin (Negative) Urine Urobilinogen (Up TO 0.2) EU/dL Ur Leukocyte Esterase (Negative) Urine RBC (0-2) HPF Urine WBC (0-5) HPF Ur Epithelial Cells (Negative) HPF Urine Crystals (Negative) HPF Urine Bacteria (Negative) HPF Urine Mucus (Negative) Ur Culture Indicated? Ur Random Creatinine mg/dL Ur Random Sodium mmol/L Urine Glucose (Negative) mg/dL COVID-19 Source Nasopharynx SARS-CoV-2 (PCR) (Negative) Negative Influenza Type A (PCR) (Negative) Negative Influenza Type B (PCR) (Negative) Negative Urine Legionella Ag (Negative) RSV (PCR) (Negative) Negative Ur Strep pneumoniae Ag (Negative) Range/Units 07/15/21 07/15/21 07/15/21 04:50 04:50 05:55 WBC (4.4-10.8) 10^3/uL RBC (4.36-5.78) 10^6/uL Hgb (13.5-17.5) g/dL Hct (40.0-50.0) % MCV (80-95) fL MCH (27.0-33.0) pg MCHC (32.0-36.0) % RDW (11.8-14.1) % Plt Count (130-400) 10^3/uL MPV (8.0-11.0) fL Immature Gran % Neutrophils % Lymphocytes % Monocytes % Eosinophils % Basophils % Nucleated RBC % (0.0-0.3) % Absolute Neutrophils (1.2-6.7) 10^3/uL Absolute Lymphocytes (1.2-3.4) 10^3/uL Absolute Monocytes (0.1-0.8) 10^3/uL Absolute Eosinophils (0.0-0.7) 10^3/uL Absolute Basophils (0.0-0.2) 10^3/uL RBC Morphology PT (9.3-11.0) sec INR (0.9-1.1) APTT (21.0-27.5) sec VBG Lactate (0.6-1.4) mmol/L Sodium (136-145) mmol/L 139 Potassium (3.5-5.1) mmol/L 3.7 Chloride (98-107) mmol/L 106 Carbon Dioxide (21.0-32.0) mmol/L 21.1 Anion Gap (3-11) mmol/L 11.9 H BUN (7-18) mg/dL 27 H Creatinine (0.70-1.30) mg/dL 1.7 H Estimated GFR/1.73 m2 (mL/min/1.73m2) 41.46 Glucose (74-106) mg/dL 130 H Calcium (8.5-10.1) mg/dL 8.7 Magnesium (1.8-2.4) mg/dL 1.9 Total Bilirubin (0.2-1.0) mg/dL 0.3 GGT (15-85) U/L 63 AST (15-37) U/L 32 ALT (16-63) U/L 59 Alkaline Phosphatase (46-116) U/L 183 H Lactate Dehydrogenase (85-227) U/L 136 Troponin I (<or=60) ng/L C-Reactive Protein (0.0-0.3) mg/dL Total Protein (6.4-8.2) g/dL 7.2 Albumin (3.4-5.0) g/dL 1.6 L Procalcitonin ng/mL Urine Color (Yellow) Urine Clarity (Clear) Urine pH (5-8) Ur Specific [place] (1.005-1.025) Urine Protein (Negative) mg/dL Urine Ketones (Negative) mg/dL Urine Blood (Negative) Urine Nitrite (Negative) Urine Bilirubin (Negative) Urine Urobilinogen (Up TO 0.2) EU/dL Ur Leukocyte Esterase (Negative) Urine RBC (0-2) HPF Urine WBC (0-5) HPF Ur Epithelial Cells (Negative) HPF Urine Crystals (Negative) HPF Urine Bacteria (Negative) HPF Urine Mucus (Negative) Ur Culture Indicated? Ur Random Creatinine mg/dL Ur Random Sodium mmol/L Urine Glucose (Negative) mg/dL COVID-19 Source SARS-CoV-2 (PCR) (Negative) Influenza Type A (PCR) (Negative) Influenza Type B (PCR) (Negative) Urine Legionella Ag (Negative) Negative RSV (PCR) (Negative) Ur Strep pneumoniae Ag (Negative) Negative Range/Units 07/15/21 07/16/21 07/16/21 05:55 05:40 05:40 WBC (4.4-10.8) 10^3/uL 20.89 H 21.16 H RBC (4.36-5.78) 10^6/uL 3.16 L 3.16 L Hgb (13.5-17.5) g/dL 9.6 L 9.4 L Hct (40.0-50.0) % 28.5 L 29.0 L MCV (80-95) fL 90 92 MCH (27.0-33.0) pg 30.4 29.7 MCHC (32.0-36.0) % 33.7 32.4 D RDW (11.8-14.1) % 12.9 13.0 Plt Count (130-400) 10^3/uL 626 H 658 H MPV (8.0-11.0) fL 9.7 9.4 Immature Gran % 0.8 0.8 Neutrophils % 83.7 81.0 Lymphocytes % 6.7 8.4 Monocytes % 7.1 7.2 Eosinophils % 1.5 2.2 Basophils % 0.2 0.4 Nucleated RBC % (0.0-0.3) % 0.0 0.0 Absolute Neutrophils (1.2-6.7) 10^3/uL 17.48 H 17.14 H Absolute Lymphocytes (1.2-3.4) 10^3/uL 1.40 1.78 Absolute Monocytes (0.1-0.8) 10^3/uL 1.48 H 1.52 H Absolute Eosinophils (0.0-0.7) 10^3/uL 0.31 0.47 Absolute Basophils (0.0-0.2) 10^3/uL 0.04 0.08 RBC Morphology PT (9.3-11.0) sec INR (0.9-1.1) APTT (21.0-27.5) sec VBG Lactate (0.6-1.4) mmol/L Sodium (136-145) mmol/L 140 Potassium (3.5-5.1) mmol/L 3.9 Chloride (98-107) mmol/L 105 Carbon Dioxide (21.0-32.0) mmol/L 22.9 Anion Gap (3-11) mmol/L 12.1 H BUN (7-18) mg/dL 25 H Creatinine (0.70-1.30) mg/dL 1.6 H Estimated GFR/1.73 m2 (mL/min/1.73m2) 44.46 Glucose (74-106) mg/dL 120 H Calcium (8.5-10.1) mg/dL 8.9 Magnesium (1.8-2.4) mg/dL Total Bilirubin (0.2-1.0) mg/dL GGT (15-85) U/L AST (15-37) U/L ALT (16-63) U/L Alkaline Phosphatase (46-116) U/L Lactate Dehydrogenase (85-227) U/L Troponin I (<or=60) ng/L C-Reactive Protein (0.0-0.3) mg/dL Total Protein (6.4-8.2) g/dL Albumin (3.4-5.0) g/dL Procalcitonin ng/mL Urine Color (Yellow) Urine Clarity (Clear) Urine pH (5-8) Ur Specific [place] (1.005-1.025) Urine Protein (Negative) mg/dL Urine Ketones (Negative) mg/dL Urine Blood (Negative) Urine Nitrite (Negative) Urine Bilirubin (Negative) Urine Urobilinogen (Up TO 0.2) EU/dL Ur Leukocyte Esterase (Negative) Urine RBC (0-2) HPF Urine WBC (0-5) HPF Ur Epithelial Cells (Negative) HPF Urine Crystals (Negative) HPF Urine Bacteria (Negative) HPF Urine Mucus (Negative) Ur Culture Indicated? Ur Random Creatinine mg/dL Ur Random Sodium mmol/L Urine Glucose (Negative) mg/dL COVID-19 Source SARS-CoV-2 (PCR) (Negative) Influenza Type A (PCR) (Negative) Influenza Type B (PCR) (Negative) Urine Legionella Ag (Negative) RSV (PCR) (Negative) Ur Strep pneumoniae Ag (Negative) Range/Units 07/16/21 07/16/21 07/16/21 15:55 15:55 15:55 WBC (4.4-10.8) 10^3/uL RBC (4.36-5.78) 10^6/uL Hgb (13.5-17.5) g/dL Hct (40.0-50.0) % MCV (80-95) fL MCH (27.0-33.0) pg MCHC (32.0-36.0) % RDW (11.8-14.1) % Plt Count (130-400) 10^3/uL MPV (8.0-11.0) fL Immature Gran % Neutrophils % Lymphocytes % Monocytes % Eosinophils % Basophils % Nucleated RBC % (0.0-0.3) % Absolute Neutrophils (1.2-6.7) 10^3/uL Absolute Lymphocytes (1.2-3.4) 10^3/uL Absolute Monocytes (0.1-0.8) 10^3/uL Absolute Eosinophils (0.0-0.7) 10^3/uL Absolute Basophils (0.0-0.2) 10^3/uL RBC Morphology PT (9.3-11.0) sec INR (0.9-1.1) APTT (21.0-27.5) sec VBG Lactate (0.6-1.4) mmol/L Sodium (136-145) mmol/L Potassium (3.5-5.1) mmol/L Chloride (98-107) mmol/L Carbon Dioxide (21.0-32.0) mmol/L Anion Gap (3-11) mmol/L BUN (7-18) mg/dL Creatinine (0.70-1.30) mg/dL Estimated GFR/1.73 m2 (mL/min/1.73m2) Glucose (74-106) mg/dL Calcium (8.5-10.1) mg/dL Magnesium (1.8-2.4) mg/dL Total Bilirubin (0.2-1.0) mg/dL GGT (15-85) U/L AST (15-37) U/L ALT (16-63) U/L Alkaline Phosphatase (46-116) U/L Lactate Dehydrogenase (85-227) U/L Troponin I (<or=60) ng/L C-Reactive Protein (0.0-0.3) mg/dL Total Protein (6.4-8.2) g/dL Albumin (3.4-5.0) g/dL Procalcitonin ng/mL Urine Color (Yellow) Yellow Urine Clarity (Clear) Clear Urine pH (5-8) 6.0 Ur Specific [place] (1.005-1.025) 1.020 Urine Protein (Negative) mg/dL Trace H Urine Ketones (Negative) mg/dL Negative Urine Blood (Negative) Large H Urine Nitrite (Negative) Negative Urine Bilirubin (Negative) Negative Urine Urobilinogen (Up TO 0.2) EU/dL 0.2 Ur Leukocyte Esterase (Negative) Negative Urine RBC (0-2) HPF >50 H Urine WBC (0-5) HPF 0-2 Ur Epithelial Cells (Negative) HPF Negative Urine Crystals (Negative) HPF Few Calcium Oxalate Urine Bacteria (Negative) HPF Negative Urine Mucus (Negative) Negative Ur Culture Indicated? No Ur Random Creatinine mg/dL 101.62 Ur Random Sodium mmol/L 69 Urine Glucose (Negative) mg/dL Negative COVID-19 Source SARS-CoV-2 (PCR) (Negative) Influenza Type A (PCR) (Negative) Influenza Type B (PCR) (Negative) Urine Legionella Ag (Negative) RSV (PCR) (Negative) Ur Strep pneumoniae Ag (Negative) Range/Units 07/17/21 07/17/21 07/18/21 10:05 10:05 05:55 WBC (4.4-10.8) 10^3/uL 12.46 H RBC (4.36-5.78) 10^6/uL 3.18 L Hgb (13.5-17.5) g/dL 9.3 L Hct (40.0-50.0) % 29.3 L MCV (80-95) fL 92 MCH (27.0-33.0) pg 29.2 MCHC (32.0-36.0) % 31.7 L D RDW (11.8-14.1) % 13.0 Plt Count (130-400) 10^3/uL 635 H MPV (8.0-11.0) fL 9.0 Immature Gran % 0.7 Neutrophils % 76.3 Lymphocytes % 13.2 Monocytes % 6.4 Eosinophils % 3.0 Basophils % 0.4 Nucleated RBC % (0.0-0.3) % 0.0 Absolute Neutrophils (1.2-6.7) 10^3/uL 9.51 H Absolute Lymphocytes (1.2-3.4) 10^3/uL 1.64 Absolute Monocytes (0.1-0.8) 10^3/uL 0.80 Absolute Eosinophils (0.0-0.7) 10^3/uL 0.37 Absolute Basophils (0.0-0.2) 10^3/uL 0.05 RBC Morphology PT (9.3-11.0) sec 11.7 H INR (0.9-1.1) 1.2 H APTT (21.0-27.5) sec VBG Lactate (0.6-1.4) mmol/L Sodium (136-145) mmol/L 140 Potassium (3.5-5.1) mmol/L 4.0 Chloride (98-107) mmol/L 105 Carbon Dioxide (21.0-32.0) mmol/L 25.1 Anion Gap (3-11) mmol/L 9.9 BUN (7-18) mg/dL 23 H Creatinine (0.70-1.30) mg/dL 1.4 H Estimated GFR/1.73 m2 (mL/min/1.73m2) 51.87 Glucose (74-106) mg/dL 110 H Calcium (8.5-10.1) mg/dL 9.1 Magnesium (1.8-2.4) mg/dL Total Bilirubin (0.2-1.0) mg/dL GGT (15-85) U/L AST (15-37) U/L ALT (16-63) U/L Alkaline Phosphatase (46-116) U/L Lactate Dehydrogenase (85-227) U/L Troponin I (<or=60) ng/L C-Reactive Protein (0.0-0.3) mg/dL 17.30 H Total Protein (6.4-8.2) g/dL Albumin (3.4-5.0) g/dL Procalcitonin ng/mL Urine Color (Yellow) Urine Clarity (Clear) Urine pH (5-8) Ur Specific [place] (1.005-1.025) Urine Protein (Negative) mg/dL Urine Ketones (Negative) mg/dL Urine Blood (Negative) Urine Nitrite (Negative) Urine Bilirubin (Negative) Urine Urobilinogen (Up TO 0.2) EU/dL Ur Leukocyte Esterase (Negative) Urine RBC (0-2) HPF Urine WBC (0-5) HPF Ur Epithelial Cells (Negative) HPF Urine Crystals (Negative) HPF Urine Bacteria (Negative) HPF Urine Mucus (Negative) Ur Culture Indicated? Ur Random Creatinine mg/dL Ur Random Sodium mmol/L Urine Glucose (Negative) mg/dL COVID-19 Source SARS-CoV-2 (PCR) (Negative) Influenza Type A (PCR) (Negative) Influenza Type B (PCR) (Negative) Urine Legionella Ag (Negative) RSV (PCR) (Negative) Ur Strep pneumoniae Ag (Negative) Procedure Note Procedure: Chest tube was interrogated and functioning well. Chest tube clamped. 50cc with 5mg tPA and 15cc with dornase 2.5mg was administered through chest tube without complication at 0900. Patient tolerated procedure well with no discomfort. RN instructed to unclamp chest tube at 1000 and reattach to suction.
[2021-07-19] MEDS: Normal Saline-STERILE FIELD 0.9% 10 ML SYR (09:10)
--- NOTE | 2021-07-19 10:38 | PGE_ITS ---
Date of Service Date of service: 07/19/21 Time of Service: 09:38 Assessment and Plan Assessment and plan (1) Empyema lung: Status: Acute Assessment and plan: Pleural fluid culture now growing Streptococcus species. Zosyn has been discontinued in favor of Rocephin 2 g daily. Continue azithromycin. Vancomycin has been discontinued. Continue fibrinolytic therapy as per pulmonary service. Check CT scan of the chest on Tuesday morning. If there is not been significant improvement then patient will be referred to CT surgeon at [facility] [place] (2) Compressive atelectasis: Status: Acute Assessment and plan: Encourage incentive spirometry and Acapella as well as ambulation and mobilization. (3) Azotemia: Status: Acute Assessment and plan: Despite IV fluids there was no significant change in his BUN/creatinine. IV fluids have been discontinued. I suspect his azotemia is due to some chronic renal disease possibly from his hypertension. (4) Essential hypertension: Status: Acute Assessment and plan: Continue current home blood pressure medications including amlodipine, Toprol XL however we will keep him off his hydrochlorothiazide but may resume his losartan with close monitoring of his renal function. Present time his blood pressure has not been an issue therefore I will continue to hold his losartan for now. (5) Alcohol abuse: Status: Chronic Assessment and plan: Patient has a history of alcohol abuse. He admits to drinking at least a 12 pack of beer per day however his states is more like 18 beers a day. Patient is being monitored per CIWA scale and is being treated with thiamine and folic acid and multivitamin.So far patient is exhibiting no evidence of alcohol withdrawal. CIWA scores were 0. CIWA monitoring has been discontinued. (6) Elevated transaminase level: Status: Resolved Assessment and plan: his transaminases were elevated on admission probably d/t his alcohol consumption. I suspect that his INR has been elevated for the same reason. He probably has some chronic alcoholic liver disease. However the acute elevation in the transaminases has resolved with abstinence over the past 5 days. Subjective Subjective Interval history since last seen: Patient states that his left chest hurts after the instillation of the dornase/TPA but usually gets better after the tube is unclampled and the indwell drains. He is uncomfortable now. Exam Narrative Exam Narrative: Kena is lying on his right side. He appears uncomfortable but in no distress Lungs: clear on the right; left base w/ diminished breath sounds but some rales, no wheezing Heart: RRR Chest wall: tender over the pleural catheter site Objective Last Vital Signs Temp 37.0 C 07/19/21 07:37 Pulse 87 07/19/21 07:37 Resp 20 07/19/21 07:37 BP 126/78 07/19/21 07:37 Pulse Ox 97 07/19/21 07:37 PAWSS Have you Been Recently Intoxicated or Drunk Within the Last 30 days?: No Have you Ever Experienced Previous Episodes of Alcohol Withdrawal?: No Have you ever Experienced Withdrawal Seizures?: No Have you ever Experienced Delirium Tremens(DT)s?: No Have you ever undergone Alcohol Rehabilitation Treatment (i.e, inpt ot outpatient treatment programs)?: No Have you ever Experienced Blackouts?: No Have you ever Combined Alcohol with other Downers within the last 90 days?: No Have you ever Combined Alcohol with any other Substance of Abuse during the last 90 days?: No Positive Blood Alcohol level on Presentation? [PCS.BAL]: No Evidence of Increased Autonomic Activity (i.e. HR>120, tremor, sweating, agitation, nausea)?: No Result: 0
[2021-07-19] MEDS: HYDROmorphone 2 MG/ML SYR IVP ×2 (11:03→18:23)
[2021-07-19] MEDS: cefTRIAXone 2 GM/50 ML BAG IVPB (11:04)
--- NOTE | 2021-07-19 16:26 | W.EVENT ---
Date of service: 07/19/21 Time of Service: 16:30 Event Note: Assessed patient for lytics and there was some monique blood present. Given the blood present I will not give any further lytic doses. Patient is comfortable and vital signs are stable. Chest tube interrogated and working appropriately. Tube flushed without resistance and blood aspirated from tube. There is some blood present in the bandages, but they are not totally soiled. I discussed this with the patient as well as his family. Will still plan for chest CT tomorrow morning. Surgery placed this chest tube - RN told that if there is more consistent monique blood as output to take off suction and call surgery. If there is a significant amount of bloody output I would recommend getting the chest CT done earlier. He received a total of 5/6 doses of half dose lytics. Time Spent with Patient Time spent in critical care(minutes): 15 Time Spent Included: Time at immediate bedside, Discussing critically ill care with other medical staff and Discussing Hx and/or treatment with family
--- NOTE | 2021-07-19 16:30 | DI.RAD_ITS ---
Exam(s) XR PORTABLE CHEST AP EXAM: XR PORTABLE CHEST AP CLINICAL HISTORY: empyema, blood pleural effusion. TECHNIQUE: 2D digital imaging was performed. COMPARISON: CR,XR XR CHEST 2V PA LATERAL from 07/14/[address] CHEST WO from 07/16/2021 FINDINGS: Single AP portable view. Heart size is upper normal. The mediastinum is not widened. Single left pigtail drainage catheter is noted, as evident on recent CT scan. There is persistent in filtrate and pleural effusion on the left side. There is also another loculated pleural density seen superiorly corresponding to finding described on the recent CT scan. This most probably is a separa te loculated collection which is not being service by the more inferiorly located pigtail drainage ca theter. Right lung remains clear. No pleural effusion on the right side. IMPRESSION: No improvement. See discussion on CT scan report of 07/16/2021. DATA REPOSITORY: RADIATION DOSE DELIVERED: All CT scans at this facility use at least one of these dose optimization techniques: automated exposure control; mA and/or kV adjustment per patient size (includes targeted e xams where dose is matched to clinical indication); or iterative reconstruction.
[2021-07-19 17:21] LABS: HCT 32.2 % (40.0-50.0); HGB 10.1 g/dL (13.5-17.5)
[2021-07-19 17:26] LABS: INR 1.1 (0.9-1.1); Prothrombin Time 11.1 sec (9.3-11.0)
--- NOTE | 2021-07-19 17:53 | DI.VRAD_ITS ---
PROCEDURE INFORMATION: Exam: XR Chest Exam date and time: 07/19/2021 4:55 PM Age: 60 years old Clinical indication: Other: Empyema, blood pleural effusion TECHNIQUE: Imaging protocol: XR of the chest. Views: 1 view. COMPARISON: CT CHEST WO 07/16/2021 8:33 AM FINDINGS: Tubes, catheters and devices: Left-sided pigtail drainage catheter is noted within the pleural space. Lungs: Left lung upper and lower lung field consolidative changes may represent atelectasis. Cannot exclude a component of infiltrate. Right lung is clear. Pleural spaces: Opacification of the inferior left hemithorax consistent with pleural fluid. Patient has a history of empyema. No right pleural effusion evident. No pneumothorax evident. Heart/Mediastinum: Normal heart size. Bones/joints: Degenerative shoulder joint changes bilaterally.. IMPRESSION: 1. Left-sided pleural pigtail drain noted. 2. Persistent moderate left pleural fluid. 3. Consolidative features of the left lower and upper lung field suggesting atelectasis or infiltrate. 4. Clear right lung and pleural space. Dictated and Authenticated by: Raman Mesa MD. Ordering:[facility] Sukumar Bowling MD
--- NOTE | 2021-07-19 20:14 | PGE_ITS ---
Date of Service Date of service: 07/19/21 Time of Service: 19:55 Assessment and Plan Assessment and plan (1) Empyema lung: Status: Acute Assessment and plan: 60 yo man with left-sided empyema. HD stable. Fever secondary to empyema that remains. There is no significant bleeding from the chest and he is safe to continue his DVT prophylaxis. The pigtail catheter does appear to be clogged at this point. This won't be an issue overnight. I do not recommend placing any other chest tubes or attempting to drain this further. The next step is VATS decortication since the tPA protocol wasn't successful. I discussed this with both the patient and the hospitalist covering. Subjective Subjective Interval history since last seen: Asked to see patient by hospitalist/nursing for first, new-onset bloody output. tPA was held. Then tube clotted off. At bedside, patient has no new complaints. No significant SOB or chest pain. Has been ambulating. He has had a fever of 101.8 today. Repeat chest imaging suggests empyema remains undrained. Exam Narrative Exam Narrative: Gen: Nontoxic and comfortable. Neuro: AxOx3 Chest: Course breath sounds on the left compared with right. Left chest tube has scant, dark, serosanguinous ouput in tubing. Pigtail catheter has murky, dark and chunky-appearing fluid that does not seem to be moving. PleurEvac is to -20 still Objective Last Vital Signs Temp 101.8 F H 07/19/21 18:30 Pulse 101 H 07/19/21 15:46 Resp 22 07/19/21 15:46 BP 143/83 H 07/19/21 15:46 Pulse Ox 95 07/19/21 15:46 Laboratory Results - last 24 hr 07/19/21 07/19/21 07/19/21 16:53 16:53 16:55 Hgb 10.1 L Hct 32.2 L PT 11.1 H INR 1.1 Patient ABO/Rh O Negative Antibody Screen NEGATIVE PAWSS Have you Been Recently Intoxicated or Drunk Within the Last 30 days?: No Have you Ever Experienced Previous Episodes of Alcohol Withdrawal?: No Have you ever Experienced Withdrawal Seizures?: No Have you ever Experienced Delirium Tremens(DT)s?: No Have you ever undergone Alcohol Rehabilitation Treatment (i.e, inpt ot outpatie nt treatment programs)?: No Have you ever Experienced Blackouts?: No Have you ever Combined Alcohol with other Downers within the last 90 days?: No Have you ever Combined Alcohol with any other Substance of Abuse during the last 90 days?: No Positive Blood Alcohol level on Presentation? [PCS.BAL]: No Evidence of Increased Autonomic Activity (i.e. HR>120, tremor, sweating, agitation, nausea)?: No Result: 0
[2021-07-19] MEDS: traMADol 50 MG TAB PO (22:07)
[2021-07-19 22:28] LABS: Legionella Ag Detection Urine Negative (Negative)
--- NOTE | 2021-07-20 | DI.CT_ITS ---
Exam(s) CT CHEST WO EXAM: CT CHEST WO CLINICAL HISTORY: follow up loculated pleural effusions TECHNIQUE: Imaging Protocol: Axial computed tomography images with coronal and sagittal reformatted images were created and reviewed CONTRAST MATERIAL: Noncontrast due to [employer] shortage.. COMPARISON: CR,XR XR CHEST 2V PA LATERAL from 07/14/[address] CHEST WO from 07/16/2021 CR,XR XR PORTABLE CHEST AP from 07/19/2021 FINDINGS: A left-sided chest tube is again noted near the the lung base, unchanged in position. There has been significant decrease in size of the loculated fluid at the left lung base, now containing some air.. There has been improvement in left lower lobe infiltrates. . 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 Previously noted densities at the right lung b ase have improved. Mediastinal adenopathy head has slightly improved. No new findings. IMPRESSION: Some interval improvement loculated collection at the left lung base and adjacent infiltrates. Relat ively stable size of left upper lobe loculated pleural collection. RADIATION DOSE DELIVERED: Total DLP DATA REPOSITORY: All CT scans at this facility are submitted to the National Radiology Data Registry (NRDR) Dose Index Registry (DIR) with the [employer] ([employer]). RADIATION OPTIMIZATION: All CT scans at this facility use at least one of these dose optimization te chniques: automated exposure control; mA and/or kV adjustment per patient size (includes targeted exa ms where dose is matched to clinical indication); or iterative reconstruction.
[2021-07-20 02:00] VITALS: TEMP 36.6
[2021-07-20] MEDS: HYDROmorphone 2 MG/ML SYR IVP ×3 (02:06→19:53)
[2021-07-20] MEDS: Normal Saline Flush 10 ML SYR IVP ×5 (02:13→19:53)
[2021-07-20 04:12] VITALS: BP 150/88; PULSE 99; RESP 16; TEMP 36.9; O2SAT 95
--- NOTE | 2021-07-20 07:20 | PGE_ITS ---
Assessment and Plan Assessment and plan (1) Empyema lung: Status: Acute (2) Compressive atelectasis: Status: Acute (3) Left lower lobe pneumonia: Status: Acute Assessment and plan: This is a 60 yo man with no prior history of pneumonia's or lung issues who is admitted for an empyema. The pleural space is complicated with septations creating 3 different spaces. It does not appear as though the spaces communicate on chest CT and in order to try and avoid VATS decortication we will continue with intrapleural lytics. Based on the CXR last night the lytics were not fully successful. I do still recommend a chest CT but would also pursue [place] [facility] [place]. Strep pneumoniae empyema - total 5/6 doses of intrapleural lytics given - started to have monique bloody output so did not give final dose - chest tube no longer clogged - q8h chest tube flushes - will continue to monitor chest tube output - chest CT today - f/u path on fluid - will require transfer [place] [facility] [place]ATS consideration as lytics we not successful in complete drainage Pneumonia with gram positive empyema - would decrease ceftriaxone to standard 1g daily dosing as opposed to bacteremia or meningitis dosing - continue azithromycin - MRSA nares negative Compressive atelectasis - agree with IS and Rahul General Date Of Service Date of service: 07/20/21 Time of Service: 07:30 Reason for Consult: Loculated pleural effusion Subjective Note Note: Kena is feeling good today. I was called yesterday evening out of concern for a clogged chest tube. This morning the chest tube is patent and functioning appropriately that flushed easily. The bloody output is much improved. He still has some pain at insertion site but it is maneagable. Exam Narrative Exam Narrative: Gen:?NAD, normal respiratory effort, well-nourished, chest tube functioning appropriately. No air leaks. 140cc output in 24 hours. Chest tube flushed easily . HENT:?PERRL, moist oral? mucosa, No LAD or JVD Chest:?No respiratory distress, normal appearance of chest,diminished breath sounds on left, otherwise good aeration Heart:?regular rate and rhythym, no murmurs, rubs or gallops Abdomen:?Non-distended, soft, non tender Extremities:?No clubbing, edema, cyanosis, rashes Neuro:?AAOx3 , non focal Psych:?cooperative, appropriate mental affect Objective Last Vital Signs Temp 36.9 C 07/20/21 04:12 Pulse 99 H 07/20/21 04:12 Resp 16 07/20/21 04:12 BP 150/88 H 07/20/21 04:12 Pulse Ox 95 07/20/21 04:12 Laboratory Results - last 24 hr 07/19/21 07/19/21 07/19/21 16:53 16:53 16:55 Hgb 10.1 L Hct 32.2 L PT 11.1 H INR 1.1 Patient ABO/Rh O Negative Antibody Screen NEGATIVE Results Medications Medications: Active Medications Generic Name Dose Route Start Last Admin Trade Name Freq PRN Reason Stop Dose Admin Acetaminophen 0 mg 07/14/21 21:33 07/19/21 18:30 Acetaminophen 325 Mg Tab PO 650 mg Q4H PRN PRN Administration Al Hydrox/Mg Hydrox/Simethicone 30 ml 07/14/21 21:33 Mylanta Suspension 30 Ml Cup PO Q2H PRN PRN Albuterol Sulfate 2.5 mg 07/14/21 21:33 Albuterol 2.5 Mg/3 Ml Inh Soln Vial UPD Q2H PRN PRN Albuterol/Ipratropium 3 ml 07/14/21 21:33 Albuterol/Ipratropium 3 Ml Upd Vial UPD Q6H PRN PRN Amlodipine Besylate 10 mg 07/15/21 08:30 07/19/21 08:05 Amlodipine 10 Mg Tab PO 10 mg DAILY ANDERSON Administration Azithromycin 250 mg 07/15/21 08:30 07/19/21 08:05 Azithromycin 250 Mg Tab PO 250 mg DAILY ANDERSON Administration Dimethicone/Zinc Oxide 0 gm 07/14/21 21:33 Ryan Protect Cream 142 Gm Tube TP PRN PRN Docusate Sodium 100 mg 07/14/21 21:33 Docusate Sodium 100 Mg Cap PO TID PRN PRN Enoxaparin Sodium 40 mg 07/14/21 22:00 07/18/21 21:14 Enoxaparin 40 Mg/0.4 Ml Syr SC 40 mg Q24H ANDERSON Administration Folic Acid 1 mg 07/15/21 08:30 07/19/21 08:05 Folic Acid 1 Mg Tab PO 1 mg DAILY ANDERSON Administration Hydromorphone HCl 1 - 2 mg 07/18/21 17:08 07/20/21 02:06 Hydromorphone 2 Mg/Ml Syr IVP 2 mg Q4H PRN PRN Administration Sodium Chloride 500 mls @ 0 mls/hr 07/14/21 18:55 07/16/21 11:40 Saline 500ml Bag IV 0 mls/hr PRN PRN Infusion As Directed Ceftriaxone Sodium/Dextrose 2 gm in 50 mls @ 100 mls/hr 07/18/21 12:00 07/19/21 11:04 Rocephin IVPB 100 mls/hr Q24H ANDERSON Administration IV Miscellaneous Supplies 1 each 07/14/21 19:00 Iv Access IV DIRECTED [facility] Magnesium Hydroxide 30 ml 07/14/21 21:33 Milk Of Magnesia 30 Ml Cup PO DAILY PRN PRN Metoprolol Succinate 100 mg 07/15/21 08:30 07/19/21 08:04 Metoprolol Cr 100 Mg Tabcr PO 100 mg DAILY ANDERSON Administration Multivitamins 1 tab 07/15/21 08:30 07/19/21 08:05 Multivitamin Tab PO 1 tab DAILY ANDERSON Administration Omeprazole 20 mg 07/16/21 07:30 07/19/21 08:05 Omeprazole 20 Mg Capcr PO 20 mg DAILY@0730 ANDERSON Administration Polyethylene Glycol 17 gm 07/14/21 21:33 Polyethylene Glycol 3350 17 Gm Packet PO DAILY PRN PRN Constipation Sodium Chloride 0 ml 07/14/21 18:55 07/20/21 02:13 Normal Saline Flush 10 Ml Syr IVP 10 ml PRN PRN Administration Thiamine HCl 100 mg 07/15/21 08:30 07/19/21 08:05 Thiamine 100 Mg Tab PO 100 mg DAILY ANDERSON Administration Tramadol HCl 50 mg 07/18/21 17:08 07/19/21 22:07 Tramadol 50 Mg Tab PO 50 mg Q6H PRN PRN Administration Allergies lisinopril Adverse Reaction (Intermediate, Verified 07/14/21 18:42) Labs Result Diagrams: 07/19/21 16:53 07/17/21 10:05 Labs: 07/14/21 22:23 Blood Blood Culture - Final NO GROWTH 120 HOURS 07/14/21 22:17 Blood Blood Culture - Final NO GROWTH 120 HOURS 07/17/21 20:48 Blood Blood Culture - Preliminary NO GROWTH 48 HOURS 07/17/21 20:37 Blood Blood Culture - Preliminary NO GROWTH 48 HOURS 07/15/21 16:34 Chest - Left Lower Anaerobic Culture - Preliminary 07/18/21 11:03 Nose MRSA Screen - Final 07/15/21 16:34 Peritoneal Body Fluid Culture - Preliminary Streptococcus species 07/15/21 16:34 Peritoneal Gram Stain - Final 07/15/21 17:24 Sputum Sputum Culture - Pending 07/15/21 17:24 Sputum Gram Stain - Pending Laboratory Tests Range/Units 07/14/21 07/14/21 07/14/21 19:10 19:10 19:10 WBC (4.4-10.8) 10^3/uL 21.83 H RBC (4.36-5.78) 10^6/uL 3.36 L Hgb (13.5-17.5) g/dL 10.1 L Hct (40.0-50.0) % 30.2 L MCV (80-95) fL 90 MCH (27.0-33.0) pg 30.1 MCHC (32.0-36.0) % 33.4 RDW (11.8-14.1) % 12.8 Plt Count (130-400) 10^3/uL 717 H MPV (8.0-11.0) fL 9.5 Immature Gran % 0.8 Neutrophils % 84.2 Lymphocytes % 6.6 Monocytes % 7.2 Eosinophils % 0.9 Basophils % 0.3 Nucleated RBC % (0.0-0.3) % 0.0 Absolute Neutrophils (1.2-6.7) 10^3/uL 18.38 H Absolute Lymphocytes (1.2-3.4) 10^3/uL 1.44 Absolute Monocytes (0.1-0.8) 10^3/uL 1.57 H Absolute Eosinophils (0.0-0.7) 10^3/uL 0.20 Absolute Basophils (0.0-0.2) 10^3/uL 0.07 RBC Morphology Normal PT (9.3-11.0) sec 11.7 H INR (0.9-1.1) 1.2 H APTT (21.0-27.5) sec 35.2 H VBG Lactate (0.6-1.4) mmol/L Sodium (136-145) mmol/L 138 Potassium (3.5-5.1) mmol/L 4.0 Chloride (98-107) mmol/L 101 Carbon Dioxide (21.0-32.0) mmol/L 23.5 Anion Gap (3-11) mmol/L 13.5 H BUN (7-18) mg/dL 29 H Creatinine (0.70-1.30) mg/dL 2.4 H Estimated GFR/1.73 m2 (mL/min/1.73m2) 27.85 Glucose (74-106) mg/dL 116 H Calcium (8.5-10.1) mg/dL 9.1 Magnesium (1.8-2.4) mg/dL 1.3 L Total Bilirubin (0.2-1.0) mg/dL 0.3 GGT (15-85) U/L AST (15-37) U/L 56 H ALT (16-63) U/L 74 H Alkaline Phosphatase (46-116) U/L 206 H Lactate Dehydrogenase (85-227) U/L Troponin I (<or=60) ng/L < 50 C-Reactive Protein (0.0-0.3) mg/dL Total Protein (6.4-8.2) g/dL 8.6 H Albumin (3.4-5.0) g/dL 2.0 L Procalcitonin ng/mL Urine Color (Yellow) Urine Clarity (Clear) Urine pH (5-8) Ur Specific Humphreys (1.005-1.025) Urine Protein (Negative) mg/dL Urine Ketones (Negative) mg/dL Urine Blood (Negative) Urine Nitrite (Negative) Urine Bilirubin (Negative) Urine Urobilinogen (Up TO 0.2) EU/dL Ur Leukocyte Esterase (Negative) Urine RBC (0-2) HPF Urine WBC (0-5) HPF Ur Epithelial Cells (Negative) HPF Urine Crystals (Negative) HPF Urine Bacteria (Negative) HPF Urine Mucus (Negative) Ur Culture Indicated? Ur Random Creatinine mg/dL Ur Random Sodium mmol/L Urine Glucose (Negative) mg/dL COVID-19 Source SARS-CoV-2 (PCR) (Negative) Influenza Type A (PCR) (Negative) Influenza Type B (PCR) (Negative) Urine Legionella Ag (Negative) RSV (PCR) (Negative) Ur Strep pneumoniae Ag (Negative) Patient ABO/Rh Antibody Screen Range/Units 07/14/21 07/14/21 07/14/21 20:15 22:17 22:17 WBC (4.4-10.8) 10^3/uL RBC (4.36-5.78) 10^6/uL Hgb (13.5-17.5) g/dL Hct (40.0-50.0) % MCV (80-95) fL MCH (27.0-33.0) pg MCHC (32.0-36.0) % RDW (11.8-14.1) % Plt Count (130-400) 10^3/uL MPV (8.0-11.0) fL Immature Gran % Neutrophils % Lymphocytes % Monocytes % Eosinophils % Basophils % Nucleated RBC % (0.0-0.3) % Absolute Neutrophils (1.2-6.7) 10^3/uL Absolute Lymphocytes (1.2-3.4) 10^3/uL Absolute Monocytes (0.1-0.8) 10^3/uL Absolute Eosinophils (0.0-0.7) 10^3/uL Absolute Basophils (0.0-0.2) 10^3/uL RBC Morphology PT (9.3-11.0) sec INR (0.9-1.1) APTT (21.0-27.5) sec VBG Lactate (0.6-1.4) mmol/L 0.9 Sodium (136-145) mmol/L Potassium (3.5-5.1) mmol/L Chloride (98-107) mmol/L Carbon Dioxide (21.0-32.0) mmol/L Anion Gap (3-11) mmol/L BUN (7-18) mg/dL Creatinine (0.70-1.30) mg/dL Estimated GFR/1.73 m2 (mL/min/1.73m2) Glucose (74-106) mg/dL Calcium (8.5-10.1) mg/dL Magnesium (1.8-2.4) mg/dL Total Bilirubin (0.2-1.0) mg/dL GGT (15-85) U/L AST (15-37) U/L ALT (16-63) U/L Alkaline Phosphatase (46-116) U/L Lactate Dehydrogenase (85-227) U/L Troponin I (<or=60) ng/L C-Reactive Protein (0.0-0.3) mg/dL Total Protein (6.4-8.2) g/dL Albumin (3.4-5.0) g/dL Procalcitonin ng/mL 0.3 Urine Color (Yellow) Urine Clarity (Clear) Urine pH (5-8) Ur Specific Humphreys (1.005-1.025) Urine Protein (Negative) mg/dL Urine Ketones (Negative) mg/dL Urine Blood (Negative) Urine Nitrite (Negative) Urine Bilirubin (Negative) Urine Urobilinogen (Up TO 0.2) EU/dL Ur Leukocyte Esterase (Negative) Urine RBC (0-2) HPF Urine WBC (0-5) HPF Ur Epithelial Cells (Negative) HPF Urine Crystals (Negative) HPF Urine Bacteria (Negative) HPF Urine Mucus (Negative) Ur Culture Indicated? Ur Random Creatinine mg/dL Ur Random Sodium mmol/L Urine Glucose (Negative) mg/dL COVID-19 Source Nasopharynx SARS-CoV-2 (PCR) (Negative) Negative Influenza Type A (PCR) (Negative) Negative Influenza Type B (PCR) (Negative) Negative Urine Legionella Ag (Negative) RSV (PCR) (Negative) Negative Ur Strep pneumoniae Ag (Negative) Patient ABO/Rh Antibody Screen Range/Units 07/15/21 07/15/21 07/15/21 04:50 04:50 05:55 WBC (4.4-10.8) 10^3/uL RBC (4.36-5.78) 10^6/uL Hgb (13.5-17.5) g/dL Hct (40.0-50.0) % MCV (80-95) fL MCH (27.0-33.0) pg MCHC (32.0-36.0) % RDW (11.8-14.1) % Plt Count (130-400) 10^3/uL MPV (8.0-11.0) fL Immature Gran % Neutrophils % Lymphocytes % Monocytes % Eosinophils % Basophils % Nucleated RBC % (0.0-0.3) % Absolute Neutrophils (1.2-6.7) 10^3/uL Absolute Lymphocytes (1.2-3.4) 10^3/uL Absolute Monocytes (0.1-0.8) 10^3/uL Absolute Eosinophils (0.0-0.7) 10^3/uL Absolute Basophils (0.0-0.2) 10^3/uL RBC Morphology PT (9.3-11.0) sec INR (0.9-1.1) APTT (21.0-27.5) sec VBG Lactate (0.6-1.4) mmol/L Sodium (136-145) mmol/L 139 Potassium (3.5-5.1) mmol/L 3.7 Chloride (98-107) mmol/L 106 Carbon Dioxide (21.0-32.0) mmol/L 21.1 Anion Gap (3-11) mmol/L 11.9 H BUN (7-18) mg/dL 27 H Creatinine (0.70-1.30) mg/dL 1.7 H Estimated GFR/1.73 m2 (mL/min/1.73m2) 41.46 Glucose (74-106) mg/dL 130 H Calcium (8.5-10.1) mg/dL 8.7 Magnesium (1.8-2.4) mg/dL 1.9 Total Bilirubin (0.2-1.0) mg/dL 0.3 GGT (15-85) U/L 63 AST (15-37) U/L 32 ALT (16-63) U/L 59 Alkaline Phosphatase (46-116) U/L 183 H Lactate Dehydrogenase (85-227) U/L 136 Troponin I (<or=60) ng/L C-Reactive Protein (0.0-0.3) mg/dL Total Protein (6.4-8.2) g/dL 7.2 Albumin (3.4-5.0) g/dL 1.6 L Procalcitonin ng/mL Urine Color (Yellow) Urine Clarity (Clear) Urine pH (5-8) Ur Specific Humphreys (1.005-1.025) Urine Protein (Negative) mg/dL Urine Ketones (Negative) mg/dL Urine Blood (Negative) Urine Nitrite (Negative) Urine Bilirubin (Negative) Urine Urobilinogen (Up TO 0.2) EU/dL Ur Leukocyte Esterase (Negative) Urine RBC (0-2) HPF Urine WBC (0-5) HPF Ur Epithelial Cells (Negative) HPF Urine Crystals (Negative) HPF Urine Bacteria (Negative) HPF Urine Mucus (Negative) Ur Culture Indicated? Ur Random Creatinine mg/dL Ur Random Sodium mmol/L Urine Glucose (Negative) mg/dL COVID-19 Source SARS-CoV-2 (PCR) (Negative) Influenza Type A (PCR) (Negative) Influenza Type B (PCR) (Negative) Urine Legionella Ag (Negative) Negative RSV (PCR) (Negative) Ur Strep pneumoniae Ag (Negative) Negative Patient ABO/Rh Antibody Screen Range/Units 07/15/21 07/16/21 07/16/21 05:55 05:40 05:40 WBC (4.4-10.8) 10^3/uL 20.89 H 21.16 H RBC (4.36-5.78) 10^6/uL 3.16 L 3.16 L Hgb (13.5-17.5) g/dL 9.6 L 9.4 L Hct (40.0-50.0) % 28.5 L 29.0 L MCV (80-95) fL 90 92 MCH (27.0-33.0) pg 30.4 29.7 MCHC (32.0-36.0) % 33.7 32.4 D RDW (11.8-14.1) % 12.9 13.0 Plt Count (130-400) 10^3/uL 626 H 658 H MPV (8.0-11.0) fL 9.7 9.4 Immature Gran % 0.8 0.8 Neutrophils % 83.7 81.0 Lymphocytes % 6.7 8.4 Monocytes % 7.1 7.2 Eosinophils % 1.5 2.2 Basophils % 0.2 0.4 Nucleated RBC % (0.0-0.3) % 0.0 0.0 Absolute Neutrophils (1.2-6.7) 10^3/uL 17.48 H 17.14 H Absolute Lymphocytes (1.2-3.4) 10^3/uL 1.40 1.78 Absolute Monocytes (0.1-0.8) 10^3/uL 1.48 H 1.52 H Absolute Eosinophils (0.0-0.7) 10^3/uL 0.31 0.47 Absolute Basophils (0.0-0.2) 10^3/uL 0.04 0.08 RBC Morphology PT (9.3-11.0) sec INR (0.9-1.1) APTT (21.0-27.5) sec VBG Lactate (0.6-1.4) mmol/L Sodium (136-145) mmol/L 140 Potassium (3.5-5.1) mmol/L 3.9 Chloride (98-107) mmol/L 105 Carbon Dioxide (21.0-32.0) mmol/L 22.9 Anion Gap (3-11) mmol/L 12.1 H BUN (7-18) mg/dL 25 H Creatinine (0.70-1.30) mg/dL 1.6 H Estimated GFR/1.73 m2 (mL/min/1.73m2) 44.46 Glucose (74-106) mg/dL 120 H Calcium (8.5-10.1) mg/dL 8.9 Magnesium (1.8-2.4) mg/dL Total Bilirubin (0.2-1.0) mg/dL GGT (15-85) U/L AST (15-37) U/L ALT (16-63) U/L Alkaline Phosphatase (46-116) U/L Lactate Dehydrogenase (85-227) U/L Troponin I (<or=60) ng/L C-Reactive Protein (0.0-0.3) mg/dL Total Protein (6.4-8.2) g/dL Albumin (3.4-5.0) g/dL Procalcitonin ng/mL Urine Color (Yellow) Urine Clarity (Clear) Urine pH (5-8) Ur Specific Humphreys (1.005-1.025) Urine Protein (Negative) mg/dL Urine Ketones (Negative) mg/dL Urine Blood (Negative) Urine Nitrite (Negative) Urine Bilirubin (Negative) Urine Urobilinogen (Up TO 0.2) EU/dL Ur Leukocyte Esterase (Negative) Urine RBC (0-2) HPF Urine WBC (0-5) HPF Ur Epithelial Cells (Negative) HPF Urine Crystals (Negative) HPF Urine Bacteria (Negative) HPF Urine Mucus (Negative) Ur Culture Indicated? Ur Random Creatinine mg/dL Ur Random Sodium mmol/L Urine Glucose (Negative) mg/dL COVID-19 Source SARS-CoV-2 (PCR) (Negative) Influenza Type A (PCR) (Negative) Influenza Type B (PCR) (Negative) Urine Legionella Ag (Negative) RSV (PCR) (Negative) Ur Strep pneumoniae Ag (Negative) Patient ABO/Rh Antibody Screen Range/Units 07/16/21 07/16/21 07/16/21 15:55 15:55 15:55 WBC (4.4-10.8) 10^3/uL RBC (4.36-5.78) 10^6/uL Hgb (13.5-17.5) g/dL Hct (40.0-50.0) % MCV (80-95) fL MCH (27.0-33.0) pg MCHC (32.0-36.0) % RDW (11.8-14.1) % Plt Count (130-400) 10^3/uL MPV (8.0-11.0) fL Immature Gran % Neutrophils % Lymphocytes % Monocytes % Eosinophils % Basophils % Nucleated RBC % (0.0-0.3) % Absolute Neutrophils (1.2-6.7) 10^3/uL Absolute Lymphocytes (1.2-3.4) 10^3/uL Absolute Monocytes (0.1-0.8) 10^3/uL Absolute Eosinophils (0.0-0.7) 10^3/uL Absolute Basophils (0.0-0.2) 10^3/uL RBC Morphology PT (9.3-11.0) sec INR (0.9-1.1) APTT (21.0-27.5) sec VBG Lactate (0.6-1.4) mmol/L Sodium (136-145) mmol/L Potassium (3.5-5.1) mmol/L Chloride (98-107) mmol/L Carbon Dioxide (21.0-32.0) mmol/L Anion Gap (3-11) mmol/L BUN (7-18) mg/dL Creatinine (0.70-1.30) mg/dL Estimated GFR/1.73 m2 (mL/min/1.73m2) Glucose (74-106) mg/dL Calcium (8.5-10.1) mg/dL Magnesium (1.8-2.4) mg/dL Total Bilirubin (0.2-1.0) mg/dL GGT (15-85) U/L AST (15-37) U/L ALT (16-63) U/L Alkaline Phosphatase (46-116) U/L Lactate Dehydrogenase (85-227) U/L Troponin I (<or=60) ng/L C-Reactive Protein (0.0-0.3) mg/dL Total Protein (6.4-8.2) g/dL Albumin (3.4-5.0) g/dL Procalcitonin ng/mL Urine Color (Yellow) Yellow Urine Clarity (Clear) Clear Urine pH (5-8) 6.0 Ur Specific Humphreys (1.005-1.025) 1.020 Urine Protein (Negative) mg/dL Trace H Urine Ketones (Negative) mg/dL Negative Urine Blood (Negative) Large H Urine Nitrite (Negative) Negative Urine Bilirubin (Negative) Negative Urine Urobilinogen (Up TO 0.2) EU/dL 0.2 Ur Leukocyte Esterase (Negative) Negative Urine RBC (0-2) HPF >50 H Urine WBC (0-5) HPF 0-2 Ur Epithelial Cells (Negative) HPF Negative Urine Crystals (Negative) HPF Few Calcium Oxalate Urine Bacteria (Negative) HPF Negative Urine Mucus (Negative) Negative Ur Culture Indicated? No Ur Random Creatinine mg/dL 101.62 Ur Random Sodium mmol/L 69 Urine Glucose (Negative) mg/dL Negative COVID-19 Source SARS-CoV-2 (PCR) (Negative) Influenza Type A (PCR) (Negative) Influenza Type B (PCR) (Negative) Urine Legionella Ag (Negative) RSV (PCR) (Negative) Ur Strep pneumoniae Ag (Negative) Patient ABO/Rh Antibody Screen Range/Units 07/17/21 07/17/21 07/18/21 10:05 10:05 05:55 WBC (4.4-10.8) 10^3/uL 12.46 H RBC (4.36-5.78) 10^6/uL 3.18 L Hgb (13.5-17.5) g/dL 9.3 L Hct (40.0-50.0) % 29.3 L MCV (80-95) fL 92 MCH (27.0-33.0) pg 29.2 MCHC (32.0-36.0) % 31.7 L D RDW (11.8-14.1) % 13.0 Plt Count (130-400) 10^3/uL 635 H MPV (8.0-11.0) fL 9.0 Immature Gran % 0.7 Neutrophils % 76.3 Lymphocytes % 13.2 Monocytes % 6.4 Eosinophils % 3.0 Basophils % 0.4 Nucleated RBC % (0.0-0.3) % 0.0 Absolute Neutrophils (1.2-6.7) 10^3/uL 9.51 H Absolute Lymphocytes (1.2-3.4) 10^3/uL 1.64 Absolute Monocytes (0.1-0.8) 10^3/uL 0.80 Absolute Eosinophils (0.0-0.7) 10^3/uL 0.37 Absolute Basophils (0.0-0.2) 10^3/uL 0.05 RBC Morphology PT (9.3-11.0) sec 11.7 H INR (0.9-1.1) 1.2 H APTT (21.0-27.5) sec VBG Lactate (0.6-1.4) mmol/L Sodium (136-145) mmol/L 140 Potassium (3.5-5.1) mmol/L 4.0 Chloride (98-107) mmol/L 105 Carbon Dioxide (21.0-32.0) mmol/L 25.1 Anion Gap (3-11) mmol/L 9.9 BUN (7-18) mg/dL 23 H Creatinine (0.70-1.30) mg/dL 1.4 H Estimated GFR/1.73 m2 (mL/min/1.73m2) 51.87 Glucose (74-106) mg/dL 110 H Calcium (8.5-10.1) mg/dL 9.1 Magnesium (1.8-2.4) mg/dL Total Bilirubin (0.2-1.0) mg/dL GGT (15-85) U/L AST (15-37) U/L ALT (16-63) U/L Alkaline Phosphatase (46-116) U/L Lactate Dehydrogenase (85-227) U/L Troponin I (<or=60) ng/L C-Reactive Protein (0.0-0.3) mg/dL 17.30 H Total Protein (6.4-8.2) g/dL Albumin (3.4-5.0) g/dL Procalcitonin ng/mL Urine Color (Yellow) Urine Clarity (Clear) Urine pH (5-8) Ur Specific Humphreys (1.005-1.025) Urine Protein (Negative) mg/dL Urine Ketones (Negative) mg/dL Urine Blood (Negative) Urine Nitrite (Negative) Urine Bilirubin (Negative) Urine Urobilinogen (Up TO 0.2) EU/dL Ur Leukocyte Esterase (Negative) Urine RBC (0-2) HPF Urine WBC (0-5) HPF Ur Epithelial Cells (Negative) HPF Urine Crystals (Negative) HPF Urine Bacteria (Negative) HPF Urine Mucus (Negative) Ur Culture Indicated? Ur Random Creatinine mg/dL Ur Random Sodium mmol/L Urine Glucose (Negative) mg/dL COVID-19 Source SARS-CoV-2 (PCR) (Negative) Influenza Type A (PCR) (Negative) Influenza Type B (PCR) (Negative) Urine Legionella Ag (Negative) RSV (PCR) (Negative) Ur Strep pneumoniae Ag (Negative) Patient ABO/Rh Antibody Screen Range/Units 07/19/21 07/19/21 07/19/21 16:53 16:53 16:55 WBC (4.4-10.8) 10^3/uL RBC (4.36-5.78) 10^6/uL Hgb (13.5-17.5) g/dL 10.1 L Hct (40.0-50.0) % 32.2 L MCV (80-95) fL MCH (27.0-33.0) pg MCHC (32.0-36.0) % RDW (11.8-14.1) % Plt Count (130-400) 10^3/uL MPV (8.0-11.0) fL Immature Gran % Neutrophils % Lymphocytes % Monocytes % Eosinophils % Basophils % Nucleated RBC % (0.0-0.3) % Absolute Neutrophils (1.2-6.7) 10^3/uL Absolute Lymphocytes (1.2-3.4) 10^3/uL Absolute Monocytes (0.1-0.8) 10^3/uL Absolute Eosinophils (0.0-0.7) 10^3/uL Absolute Basophils (0.0-0.2) 10^3/uL RBC Morphology PT (9.3-11.0) sec 11.1 H INR (0.9-1.1) 1.1 APTT (21.0-27.5) sec VBG Lactate (0.6-1.4) mmol/L Sodium (136-145) mmol/L Potassium (3.5-5.1) mmol/L Chloride (98-107) mmol/L Carbon Dioxide (21.0-32.0) mmol/L Anion Gap (3-11) mmol/L BUN (7-18) mg/dL Creatinine (0.70-1.30) mg/dL Estimated GFR/1.73 m2 (mL/min/1.73m2) Glucose (74-106) mg/dL Calcium (8.5-10.1) mg/dL Magnesium (1.8-2.4) mg/dL Total Bilirubin (0.2-1.0) mg/dL GGT (15-85) U/L AST (15-37) U/L ALT (16-63) U/L Alkaline Phosphatase (46-116) U/L Lactate Dehydrogenase (85-227) U/L Troponin I (<or=60) ng/L C-Reactive Protein (0.0-0.3) mg/dL Total Protein (6.4-8.2) g/dL Albumin (3.4-5.0) g/dL Procalcitonin ng/mL Urine Color (Yellow) Urine Clarity (Clear) Urine pH (5-8) Ur Specific Humphreys (1.005-1.025) Urine Protein (Negative) mg/dL Urine Ketones (Negative) mg/dL Urine Blood (Negative) Urine Nitrite (Negative) Urine Bilirubin (Negative) Urine Urobilinogen (Up TO 0.2) EU/dL Ur Leukocyte Esterase (Negative) Urine RBC (0-2) HPF Urine WBC (0-5) HPF Ur Epithelial Cells (Negative) HPF Urine Crystals (Negative) HPF Urine Bacteria (Negative) HPF Urine Mucus (Negative) Ur Culture Indicated? Ur Random Creatinine mg/dL Ur Random Sodium mmol/L Urine Glucose (Negative) mg/dL COVID-19 Source SARS-CoV-2 (PCR) (Negative) Influenza Type A (PCR) (Negative) Influenza Type B (PCR) (Negative) Urine Legionella Ag (Negative) RSV (PCR) (Negative) Ur Strep pneumoniae Ag (Negative) Patient ABO/Rh O Negative Antibody Screen NEGATIVE Imaging Chest x-ray: report reviewed and image reviewed
[2021-07-20] MEDS: Thiamine 100 MG TAB PO (08:16)
[2021-07-20] MEDS: Metoprolol CR 100 MG TABCR PO (08:16)
[2021-07-20] MEDS: Multivitamin TAB 1 TAB PO (08:16)
[2021-07-20] MEDS: Omeprazole 20 MG CAPCR PO (08:16)
[2021-07-20] MEDS: Folic Acid 1 MG TAB PO (08:16)
[2021-07-20] MEDS: amLODIPine 10 MG TAB PO (08:16)
[2021-07-20] MEDS: Azithromycin 250 MG TAB PO (08:16)
--- NOTE | 2021-07-20 09:01 | W.PM.PROGNOT ---
Date of Service Date of service: 07/20/21 Time of Service: 08:01 Assessment and Plan Assessment and plan (1) Empyema lung: Status: Acute Assessment and plan: Given no improvement, will require transfer to [facility] for VATS procedure. Spoke with hospitalist whom is planning to call first thing this morning regarding transfer. Patient denies pain at this time, however he continues to feel SOB. CT scheduled for this morning. Subjective Subjective Interval history since last seen: Patient reports he is feeling okay today, but mostly unchanged. He is eager to her back regarding possible transfer to [facility]. Exam Const General: cooperative and comfortable Orientation: alert and oriented x3 Resp Effort & Inspection: normal respiratory effort, no audible wheezes and no cough Other: Chest tube in place. Objective Last Vital Signs Temp 36.9 C 07/20/21 04:12 Pulse 99 H 07/20/21 04:12 Resp 16 07/20/21 04:12 BP 150/88 H 07/20/21 04:12 Pulse Ox 95 07/20/21 04:12 Laboratory Results - last 24 hr 07/19/21 07/19/21 07/19/21 16:53 16:53 16:55 Hgb 10.1 L Hct 32.2 L PT 11.1 H INR 1.1 Patient ABO/Rh O Negative Antibody Screen NEGATIVE PAWSS Have you Been Recently Intoxicated or Drunk Within the Last 30 days?: No Have you Ever Experienced Previous Episodes of Alcohol Withdrawal?: No Have you ever Experienced Withdrawal Seizures?: No Have you ever Experienced Delirium Tremens(DT)s?: No Have you ever undergone Alcohol Rehabilitation Treatment (i.e, inpt ot outpatient treatment programs)?: No Have you ever Experienced Blackouts?: No Have you ever Combined Alcohol with other Downers within the last 90 days?: No Have you ever Combined Alcohol with any other Substance of Abuse during the last 90 days?: No Positive Blood Alcohol level on Presentation? [PCS.BAL]: No Evidence of Increased Autonomic Activity (i.e. HR>120, tremor, sweating, agitation, nausea)?: No Result: 0
[2021-07-20 09:43] VITALS: BP 142/84; PULSE 92; RESP 20; TEMP 37; O2SAT 93
[2021-07-20] MEDS: Normal Saline 500 ML 30 ML IV (12:03)
[2021-07-20] MEDS: cefTRIAXone 2 GM/50 ML BAG IVPB (12:03)
[2021-07-20 12:14] VITALS: BP 130/81; PULSE 90; RESP 18; TEMP 36.7; O2SAT 94
[2021-07-20 15:57] VITALS: BP 130/78; PULSE 93; RESP 22; TEMP 37.7; O2SAT 95
--- NOTE | 2021-07-20 16:37 | CMPROGNOTE_ITS ---
- If Service Date Differs Date of service: 07/20/21 Time of Service: 16:37 Care Management Progress Note K[place] [facility] [place]. Patient has been accepted, awaiting available bed. Transport to be coordinated by nursing feed house supervisor.
--- NOTE | 2021-07-20 16:37 | PDOC.CMPRO ---
- If Service Date Differs Date of service: 07/20/21 Time of Service: 16:37 Care Management Progress Note Kena will transfer to [facility] [place] per Dr. Patino. Patient has been accepted, awaiting available bed. Transport to be coordinated by nursing paperhanger supervisor.
--- NOTE | 2021-07-20 18:06 | W.PM.PROGNOT ---
Date of Service Date of service: 07/20/21 Time of Service: 17:07 Assessment and Plan Assessment and plan (1) Empyema lung: Status: Acute Assessment and plan: Pleural fluid culture now growing Streptococcus species. Zosyn has been discontinued in favor of Rocephin 2 g daily. Continue azithromycin. Vancomycin has been discontinued. Fibrinolytics discontinued last night secondary to bleeding complications. Bleeding has stopped and the chest tube drainage has to only 25 mL today. He only had 205 mL all day yesterday. Patient's been accepted to the service of Dr. Ortiz thoracic surgery at [facility]. Awaiting bed availability. (2) Compressive atelectasis: Status: Acute Assessment and plan: Encourage incentive spirometry and Acapella as well as ambulation and mobilization. (3) Azotemia: Status: Acute Assessment and plan: Despite IV fluids there was no significant change in his BUN/creatinine. IV fluids have been discontinued. I suspect his azotemia is due to some chronic renal disease possibly from his hypertension. (4) Essential hypertension: Status: Acute Assessment and plan: Continue current home blood pressure medications including amlodipine, Toprol XL however we will keep him off his hydrochlorothiazide but may resume his losartan with close monitoring of his renal function. Present time his blood pressure has not been an issue therefore I will continue to hold his losartan for now. (5) Alcohol abuse: Status: Chronic Assessment and plan: Patient has a history of alcohol abuse. He admits to drinking at least a 12 pack of beer per day however his states is more like 18 beers a day. Patient is being monitored per CIWA scale and is being treated with thiamine and folic acid and multivitamin.So far patient is exhibiting no evidence of alcohol withdrawal. CIWA scores were 0. CIWA monitoring has been discontinued. (6) Elevated transaminase level: Status: Resolved Assessment and plan: his transaminases were elevated on admission probably d/t his alcohol consumption. I suspect that his INR has been elevated for the same reason. He probably has some chronic alcoholic liver disease. However the acute elevation in the transaminases has resolved with abstinence over the past 5 days. Subjective Subjective Interval history since last seen: Patient was seen this morning on rounds and then again this afternoon after his CT scan of his chest. Case discussed with Dr. Tata Hodge. Some mild interval improvement in his left lower loculated pleural effusion but he still has a large left upper chest loculated pleural effusion. Given the fact that he had some bleeding complications from the fibrinolytics the best course of action is for him to be transferred for VATS procedure. I called [facility] transfer center and spoke with Dr. Heaton who has accepted the patient for transfer. I been waiting all day long for the transfer center to call to take the patient. His acceptance is pending bed availability. I left a message this afternoon on the patient's 's cell phone. Exam Narrative Exam Narrative: Kena is alert having minimal discomfort over the left chest wall from the chest tube. No shortness of breath at rest but gets dyspneic with any activity. Minimal cough no sputum production. Lungs are clear on the right left side he has diminished breath sounds over the left lung base with some fine rales the diminished breath sounds extends from the base up to mid level on the left. Heart is regular rate and rhythm Abdomen soft nontender Objective Last Vital Signs Temp 37.7 C H 07/20/21 15:57 Pulse 93 H 07/20/21 15:57 Resp 22 07/20/21 15:57 BP 130/78 07/20/21 15:57 Pulse Ox 95 07/20/21 15:57 Laboratory Results - last 24 hr 07/18/21 07/19/21 14:24 16:53 Urine Legionella Ag Negative Patient ABO/Rh O Negative Antibody Screen NEGATIVE PAWSS Have you Been Recently Intoxicated or Drunk Within the Last 30 days?: No Have you Ever Experienced Previous Episodes of Alcohol Withdrawal?: No Have you ever Experienced Withdrawal Seizures?: No Have you ever Experienced Delirium Tremens(DT)s?: No Have you ever undergone Alcohol Rehabilitation Treatment (i.e, inpt ot outpatient treatment programs)?: No Have you ever Experienced Blackouts?: No Have you ever Combined Alcohol with other Downers within the last 90 days?: No Have you ever Combined Alcohol with any other Substance of Abuse during the last 90 days?: No Positive Blood Alcohol level on Presentation? [PCS.BAL]: No Evidence of Increased Autonomic Activity (i.e. HR>120, tremor, sweating, agitation, nausea)?: No Result: 0
--- NOTE | 2021-07-20 19:05 | DSE_ITS ---
Date of service: 07/20/21 Time of Service: 18:05 DS: Diagnosis Discharge Diagnosis (1) Empyema lung: Status: Acute Asessment and Plan: See hospital course for details. Patient had a left-sided pleural catheter placed by surgical service which drained purulent material which eventually grew Streptococcus intermedius. Patient was initially treated with Zosyn and vancomycin and then later changed to Rocephin 2 g daily once we knew the pleural fluid was growing strep species. Patient has a 3-day course of fibrinolytic installation into his left pleural catheter to try to break up the empyema loc ulated fluid. On the third day of instillation of fibrinolytics treatment had to be stopped due to pleural bleeding. Pleural bleeding was minor and did not require any transfusion. Subsequent CT scan was performed the following morning that showed improvement in the left lower lung loculated effusion with some improved aeration in the left lower lobe however the left upper chest pleural loculation remained indicating that there was no communication between the loculated effusions. It was decided that the patient should be referred to [facility] for VATS procedure. (2) Compressive atelectasis: Status: Acute (3) Azotemia: Status: Acute Asessment and Plan: Improved BUN and creatinine after IV fluids however he still has some residual azotemia. I suspect he probably has some chronic kidney disease from his chin. (4) Essential hypertension: Status: Acute (5) Alcohol abuse: Status: Chronic Asessment and Plan: Patient was monitored for acute alcohol withdrawal but exhibited no signs or symptoms of withdrawal and his CIWA scores remain low. It is suspect that he has some underlying alcoholic liver disease as he had an elevated INR admission as well as elevated transaminases. (6) Elevated transaminase level: Status: Resolved Asessment and Plan: Transaminases improved with abstinence from alcohol. Discharge Plan Disposition Patient Disposition: [facility] Condition: Stable Discharge Details Reason For Visit: Pneumonia,Pleural Effusion;R/O Empyema Admit Date/Time: 07/14/21 21:31 Admit Provider: Dash Patino Attending Provider: Dash Patino Primary Care Provider: Bo Brown Hospital Course Hospital Course: Kena Franco is a 60-year-old male former smoker who presented to the emergency department on 07/14/2021 with symptoms of shortness of breath and left-sided pleuritic chest pain for the last week. This had been preceded about a month prior with a 2 to 3-day episode of fever and rigors. When he initially had the fever he was concern for possible COVID-19 but did a home test that was negative. He is fully vaccinated including his boosters against COVID-19. Evaluation emergency department showed he was afebrile but tachycardic with stable blood pressure. Pulse oximetry was 99% on room air. Chest x-ray demonstrated moderate to large partially loculated left pleural effusion with left mid to lower lobe lung zone airspace disease consistent with pneumonia versus a postobstructive consolidation. CT scan of the chest was performed without contrast and demonstrated severe consolidation left lower lobe with air bronchograms and patchy airspace disease along with loculated left pleural effusions in the left lower lung as well as in the left upper lung suspicious for empyema. Laboratory studies showed an elevated white count of 21,800 as well as a anemia with hemoglobin 10.1 g. He was also found to be azotemic with a BUN 29 creatinine 2.4. Kena's comorbidities include alcohol abuse with alcoholic liver disease, depression, GERD, essential hypertension. Blood cultures were obtained and patient was admitted to the hospital and surgical and pulmonary consultations were requested. On the day of admission pulmonary services were not available but surgery services saw the patient and placed a left-sided pleural catheter and drained of purulent material. Unfortunately no chemistries were sent on the pleural fluid so we do not know the LDH and protein and pH however cultures were sent and gram stain was performed initially Gram stain just showed a lot of white cells no bacteria subsequent culture grew strep species which is now been differentiated as Streptococcus intermedius (Milleri group). Blood cultures from admission showed no growth. We are never able to obtain a sputum culture. Urine Legionella and urine strep pneumoniae antigen were negative. Nasal swab for PCR for COVID-19 was negative. Influenza type a and B and RSV were also negative. Pulmonary service saw the patient in consultation on 07/17/2021 and recommended a trial of fibrinolytic medications including dornase and tPA to be instilled into the pleural catheter to try to break up the fibrinous loculations. He had a partial response from this. Prior to fibrinolytics his chest tube would only drain 140 mL. After fibrinolytics on July 17, 2021 he had 495 mL out and on July 18 he had 325 mL out and on July 19 it it dropped off to 205 mL. On the evening of July 19, 2021 he was on his third day of fibrinolytics which were given at half the usual dose because of concern of his elevated INR when the lab technician went to give the last dose it was noted that he was having increased bleeding from the pleural catheter with some dark red sanguinous fluid. Therefore the last dose of fibrinolytics was not given. Chest x-ray was obtained and reportedly showed no improvement in his persistent left infiltrate and effusion. On the following morning on 07/20/2021 follow-up chest CT was performed without contrast and showed some interval improvement in the loculated collection at the left lung base with some aeration into the left lung base. There was also some improvement in left lower lobe infiltrates. However the amount of loculated fluid posteriorly along the left upper lobe was unchanged. While he was undergoing treatment for the pleural effusion he received antibiotic therapy initially treated with vancomycin and Zosyn which upon finding that it was a strep species growing from the pleural fluid his antibiotics were narrowed to Rocephin 2 g IV daily. At the same time that fibrinolytics were being considered I made a call to [facility] and spoke with Dr. Ortiz from thoracic surgery and presented the case to her and she reviewed the patient's CT findings and she stated that the patient would need a VATS procedure. I told her that our lab technician was seeing the patient and that our lab technician would like to try fibrinolytics first. Both the patient and his were agreeable to staying here while an attempt was made to use a less invasive procedure. As a procedure only had partial success and its likely the patient would need a second chest tube to drain the upper pleural effusion and given the length of time that this has been present the concern is that this is not going to remove all the fibropurulent material from the pleura and he is probably going to need a decortication procedure. Therefore I reached out to Dr. Ortiz again this morning and presented the course of treatment and she indicated that he definitely needed to come down to [facility] for VATS procedure. Patient is now being transferred to [facility] to the thoracic service of Dr. Ortiz for further definitive treatment of his left- sided empyema. Home Meds and New Rx's Prescriptions: No Action amlodipine 10 mg tablet 10 mg PO DAILY Qty: 90 2RF hydrochlorothiazide 25 mg tablet 25 mg PO DAILY Qty: 90 2RF losartan 100 mg tablet 100 mg PO DAILY Qty: 90 2RF metoprolol succinate 100 mg tablet extended release 24 hr 100 mg PO DAILY Qty: 90 2RF omeprazole 20 mg Capsule,Delayed Release(Dr/Ec) 20 mg PO DAILY Discharge Instructions Instructions: Pleural Empyema (DC) Referrals: Tata Hodge MD [ [facility] STAFF PHYSICIAN] - 08/24/21 9:00 am Activity:: Activity as Tolerated Diet:: Normal Diet Discharge Orders Discharge Orders: Discharge Order (Routine); Ordered 07/20/21 Ordered By: Dash Patino DS: Summary Time Spent with Patient providing and/or coordinating discharge services: Greater than 30 minutes Specific discharge activities: Interview/exam of patient; review of discharge instructions, completion of discharge instructions; discussion w/ nursing and CM and consultants; documentation of hospital visit Status at Discharge Functional status at discharge: independent ambulation Overall status at discharge: patient is not back to baseline Mental Status: mental status grossly normal Speech and Movement: speech and movement normal Mood: congruent mood Affect: normal affect Exam Narrative Exam Narrative: Kena is alert having minimal discomfort over the left chest wall from the chest tube.? No shortness of breath at rest but gets dyspneic with any activity.? Minimal cough no sputum production. Lungs are clear on the right left side he has diminished breath sounds over the left lung base with some fine rales the diminished breath sounds extends from the base up to mid level on the left. Heart is regular rate and rhythm Abdomen soft nontender Psych Mental Status: mental status grossly normal Speech and Movement: speech and movement normal Mood: congruent mood Affect: normal affect DS: Data Vitals/I&O Vitals and I&O: Vital Signs Temperature 37.7 C H 07/20/21 15:57 Temperature Source Tympanic 07/20/21 15:57 Pulse 93 H 07/20/21 15:57 Pulse Rhythm Regular 07/20/21 08:20 Respiratory Rate 22 07/20/21 15:57 Respiratory Effort Non-Labored 07/20/21 08:20 Respiratory Depth Normal 07/20/21 08:20 Respiratory Pattern Normal 07/20/21 08:20 Blood Pressure 130/78 07/20/21 15:57 Blood Pressure Position Sitting 07/14/21 18:09 Pulse Oximetry 95 07/20/21 15:57 Oxygen Delivery Method Room Air 07/20/21 15:57 Oxygen Flow Rate 0 07/20/21 15:57 Pain Level 8 07/20/21 15:58 Comment 07/20/21 15:57 Intake & Output 07/19/21 07/20/21 07/20/21 23:59 11:59 23:59 Intake Total 480 / 530 120 / 686.5 566.5 / 686.5 Output Total 615 / 1305 375 / 625 250 / 625 Balance -135 / -775 -255 / 61.5 316.5 / 61.5 Weight 92.2 kg Intake: IV 76.5 / 76.5 Oral 470 / 470 120 / 610 490 / 610 Output: Chest Tube Drainage 115 / 205 25 / 25 Urine 500 / 1100 350 / 600 250 / 600 Other: Urine Color Yellow Yellow Yellow Urine Appearance Clear Clear Clear Urine Odor Normal Comment pT voids independently he was up and in the bathroom Voiding Methods Urinal Urinal Toilet Data Completed and Pending Labs on day of discharge: Labs from last 24 hours 07/18/21 14:24 Urine Legionella Ag Negative Preliminary micro results at discharge 07/15/21 16:34 Body Fluid Culture - Preliminary Peritoneal Strep Intermedius(Milleri Grp) 07/15/21 16:34 Anaerobic Culture - Preliminary Chest - Left Lower 07/17/21 20:48 Blood Culture - Preliminary Blood NO GROWTH 48 HOURS 07/17/21 20:37 Blood Culture - Preliminary Blood NO GROWTH 48 HOURS PFSH All Active Problems Alcohol abuse (Chronic) Empyema lung (Acute) Compressive atelectasis (Acute) Azotemia (Acute) DVT prophylaxis (Acute) Pleural effusion, left (Acute) Essential hypertension (Acute 12/25/12) Left lower lobe pneumonia (Acute) Posterior tibial tendon dysfunction (PTTD) of right lower extremity (Acute) Arthritis of right subtalar joint (Acute) Osteoarthritis of right midfoot (Acute) Pes planus of right foot (Acute) Enchondroma (Acute) Primary hypertension (Acute) Medical History Alcoholic liver disease (05/03/14) Depressive disorder Diverticulitis of colon with perforation Esophageal reflux Loculated pleural effusion Smoker Surgical History S/P partial colectomy (12/26/12) Family History Father Prostate cancer Sister No problems noted. Sister No problems noted. Brother No problems noted. Social History Smoking/Tobacco Use Status: Former Tobacco Use tobacco type: cigarettes and e- cigarettes Quit Date: 02/14/17 Second Hand Exposure: Yes Smoking risk assessment performed?: Yes Alcohol Intake: current Alcohol Intake frequency: a few times a week Alcohol type: beer Drug use: Never Substance use type: does not use Caregiver/Support person: No Household members: spouse Housing: house Communication Needs: None Pets and animals: Yes Pets and animals: cat(s) and dog(s) Sexually active: Yes Do you think of yourself as: straight/heterosexual Current gender identity: male What is your relationship status?: How often do you talk on the phone with friends or family?: once per week How often do you get together with friends or relatives?: once per week Do you belong to any clubs or organized social groups?: no Panel score (0-1 are the most socially isolated patients): 1 What type of physical activity do you participate in: none Drive intox or ride w/intox driver material handler: No Do you feel safe at home: Yes Do you feel safe in your relationship?: Yes
[2021-07-20 19:27] VITALS: BP 127/78; PULSE 95; RESP 20; TEMP 37.3; O2SAT 94
--- NOTE | 2021-07-20 22:09 | NUR.NOTE ---
at [id number] This RN tried to give Nursing report to [facility]. However charge nurse stated that receiving Nurse Maria E is dealing with a current admission and will have to give us a call back. Phone number for our unit was given
--- NOTE | 2021-07-20 22:18 | NUR.NOTE ---
at 2215 Nursing report given to MARICHUY Sanderson, all questions were addressed at this time.
[2021-07-21 15:36] LABS: Streptococcus Pneumoniae Ag, U Negative (Negative)
== END 2021-07-20 21:47 | disposition short-term general hospital (02) | DRG 177 ==
LOC: ER 20:04 → MS 22:22
PROVIDERS: Family Medicine; Student in an Organized Health Care Education/Training Program; Admitting Provider Internal Medicine; Emergency Provider Emergency Medicine; PCP Nurse Practitioner Family; Visit Provider Internal Medicine
DX: J86.9 Pyothorax without fistula (principal); J18.9 Pneumonia, unspecified organism; N17.9 Acute kidney failure, unspecified; J98.11 Atelectasis; R04.89 Hemorrhage from other sites in respiratory passages; Z87.891 Personal history of nicotine dependence; D64.9 Anemia, unspecified; R00.0 Tachycardia, unspecified; K70.9 Alcoholic liver disease, unspecified; M19.071 Primary osteoarthritis, right ankle and foot; Z98.0 Intestinal bypass and anastomosis status; Z90.49 Acquired absence of other specified parts of digestive tract; M21.41 Flat foot [pes planus] (acquired), right foot; F32.A Depression, unspecified; K21.9 Gastro-esophageal reflux disease without esophagitis; F10.10 Alcohol abuse, uncomplicated; B95.4 Other streptococcus as the cause of diseases classified elsewhere; I12.9 Hypertensive chronic kidney disease with stage 1 through stage 4 chronic kidney disease, or unspecified chronic kidney disease; N18.9 Chronic kidney disease, unspecified; R74.01 Elevation of levels of liver transaminase levels; T85.9XXA Unspecified complication of internal prosthetic device, implant and graft, initial encounter
CPT/HCPCS: 32561; 32562 ×2; 32551; 36410; 36415; 71250; 80048; 80053; 84145; 86850; 86900; 86901; 87040; 87077; 87081; 87449; 87637; 93005; 96361; 96365; 96366; 96368; 99285; J1650; 71045; 71046; 81003; 81015; 82565; 82977; 83605; 83615; 83735; 84300; 84484; 85014; 85018; 85025; 85610; 85730; 86140; 87070; 87075; 87205; 87899; 88104; 93010; 99223; 99232; 99239; J1170; J2060; J2270; J2543; J2997; J7639

== ENCOUNTER 2021-11-23 03:09 | Outpatient (CLI) | payer BC, SELFPAY ==
[2021-11-23] MEDS: Albuterol HFA 18 GM 200 PUFF INH IH (15:59)
[2021-11-23] MEDS: Inhaler, Assist Device 1 EACH MC (16:00)
--- NOTE | 2021-11-24 12:48 | W.PFT ---
Date of service: 11/23/21 Time of Service: 14:57 Pulmonary Function Test Result Requesting Provider Ayesha Indications: Empyema Interpretation Spirometry: There is mild airflow limitation. There is no significant bronchodilator response. Lung Volumes: Normal lung volumes Diffusion Capacity: Normal diffusion Airway Pressure: Normal airways resistance. Impression Mild airflow obstruction with a normal diffusion. This could represent chronic bronchitis (COPD) in the correct clinical setting. Clinical Correlation therefore is recommended.
== END 2021-11-23 03:10 | disposition home or self-care (01) ==
LOC: RT 03:09
PROVIDERS: PCP Nurse Practitioner Family; Visit Provider Student in an Organized Health Care Education/Training Program
DX: R94.2 Abnormal results of pulmonary function studies (principal); J90 Pleural effusion, not elsewhere classified; Z87.891 Personal history of nicotine dependence
CPT/HCPCS: 94060; 94726; 94729

== ENCOUNTER 2022-02-12 03:12 | Outpatient (CLI) | payer BC, SELFPAY ==
[2022-02-12 17:04] LABS: ALT 18 U/L (16-63); AST 12 U/L (15-37); Albumin 3.3 g/dL (3.4-5.0); Alkaline Phosphatase 112 U/L (46-116); Anion Gap 8.3 mmol/L (3-11); BUN 40 mg/dL (7-18); Bilirubin, Total 0.2 mg/dL (0.2-1.0); CO2 26.7 mmol/L (21.0-32.0); CREATININE 1.4 mg/dL (0.70-1.30); Calcium 9.2 mg/dL (8.5-10.1); Calculated LDL 36 mg/dL (<100); Chloride 110 mmol/L (98-107); Cholesterol 150 mg/dL (<200); Estimated GFR 57.54 (mL/min/1.73m2); Glucose 90 mg/dL (74-106); HDL Cholesterol 35 mg/dL (40-60); Potassium 4.4 mmol/L (3.5-5.1); Sodium 145 mmol/L (136-145); Total Protein 7.3 g/dL (6.4-8.2); Triglyceride 396 mg/dL (<150)
== END 2022-02-12 03:13 | disposition home or self-care (01) ==
LOC: LBO 03:12
PROVIDERS: PCP Nurse Practitioner Family; Visit Provider Nurse Practitioner Family
DX: I10 Essential (primary) hypertension (principal); Z13.220 Encounter for screening for lipoid disorders
CPT/HCPCS: 36415; 80053; 80061

== ENCOUNTER 2022-04-19 10:00 | Emergency (ER) | payer BC, SELFPAY ==
[2022-04-19] VITALS (39 sets, daily range): BP systolic 99–119; BP diastolic 59–83; PULSE 86–108; RESP 16–28; TEMP 37.4; O2SAT 96–100
--- NOTE | 2022-04-19 10:00 | RT.EKG_ITS ---
APPROVED REPORT Exam: Resting ECG Reason for Exam: sob Patient Location: E HR:90 bpm ECG Measurements Heart Rate 90 AXIS FL 185 P 27 QRSd 91 QRS -17 QT 313 T 30 QTc 384 Conclusion Sinus rhythm...normal P axis, V-rate 60- 99 Inferior infarct, old...Q >35mS, II III aVF Narrow complex normal sinus rhythm at a rate of 90. Left axis deviation. No signs of LVH based on v oltage criteria. Mild concave upsloping ST segment in V2 new compared to prior. Prior dated last ye ar. No ST segment depressions. T wave flattening in the inferior leads appears more pronounced comp ared to prior.
--- NOTE | 2022-04-19 10:06 | ED.GENADUL_ITS ---
Discharge Plan Disposition Patient Disposition: Home Discharge Details Clinical Impression: Pneumonia involving left lung Primary Care Provider: Bo Brown ED Provider: Arnav Wiseman Home Meds and New Rx's Prescriptions: New doxycycline hyclate 100 mg capsule 100 mg PO BID Qty: 10 0RF amoxicillin-pot clavulanate 875-125 mg tablet 1 tab PO BID 10 Days Qty: 20 0RF Continued amlodipine 10 mg tablet 10 mg PO DAILY Qty: 90 2RF hydrochlorothiazide 25 mg tablet 25 mg PO DAILY Qty: 90 2RF losartan 100 mg tablet 100 mg PO DAILY Qty: 90 2RF metoprolol succinate 100 mg tablet extended release 24 hr 100 mg PO DAILY Qty: 90 2RF omeprazole 20 mg Capsule,Delayed Release(Dr/Ec) 20 mg PO DAILY Discharge Instructions Instructions: Pneumonia (ED) Additional Instructions: Please read all of the information that accompanies these instructions. You were seen in the emergency department for your shortness of breath. You are diagnosed with a pneumonia. Please schedule an appointment with your primary care provider later this week. Please return to the emergency department if if you pass out develop worsening cough or fevers or have any other concerns. Please take these antibiotics as directed. For your pain please take medications as follows: 1. Take acetaminophen (Tylenol), 1,000 mg (two 500 mg tabs) every 6 hours 2. Take ibuprofen (Advil), 400 mg every 6 hours. Medical Decision Making This is a tachycardic but not hypoxic nor febrile 61-year-old male with history of alcohol abuse and hypertension and fevers last night with syncopal episode at primary care provider associated with shortness of breath concerning for pneumonia. He has bilateral lung sliding & no history of trauma to suggest pneumothorax. Given concern for sepsis will provide 1000 cc fluid bolus, check a lactate, venous blood gas, and treat empirically with piperacillin/tazobactam as patient lacks MRSA risk factors. We will obtain a portable chest x-ray. Given concern for syncope with hypotension and tachycardia will obtain a D- dimer. Patient denies chest pain so doubt ACS however will obtain a troponin to assess for myocardial injury. Patient is not febrile in the emergency department so we will defer antipyretics at this point time. No neck stiffness to suggest meningitis. No dysuria nor frequency to suggest urinary tract infection. Soft nontender abdomen so I not concerned for intra-abdominal process. No nausea nor vomiting to suggest esophageal rupture. No rash to the chest to suggest zoster. I did not send a respiratory viral swab given the patient's negative swab at primary care earlier today. 1:50 PM Patient was able to tolerate p.o. in the emergency department. He was without hypoxia and without hypotension. He did have a rising lactate and his lactate was 2.6. I counseled him that my recommendation would be for him to receive an additional 1 L of IV fluids lactate. He was adamant about wanting to be discharged. I counseled him on risks of discharge including syncope worsening infection. He understood these risks and I sent prescriptions for doxycycline and amoxicillin/clavulanate to his pharmacy. He received initial doses in the emergency department. Given no ongoing alcohol abuse my suspicion is low for aspiration pneumonia so I did not feel as if the patient required anaerobic coverage with metronidazole. Chronic conditions affecting the care of the patient: Left lung empyema History obtained from an outside historian: Patient's External record [place] [facility] [place] Diagnostic interpretations performed by me: [Per my independent interpretation chest x-ray shows:] Left-sided infiltrate [Per my independent interpretation EKG shows:] No ischemic changes Medications: Started antibiotics Social determinants of health affecting disposition: N/A Management discussed with: Treatment/interventions considered: Hospitalization but patient declined repeat lactate and additional fluids Response to therapies provided: stable blood pressures in the ED HPI General Date/Time Provider Initiated Documentation: 04/19/22 10:14 . HPI Narrative: This is a 63-year-old male with a history of left-sided strep pneumo empyema status post lytic failure and [facility] [place] with left thoracotomy now in the emergency department with shortness of breath and fever. Patient reportedly was in his usual state of health yesterday. He woke up at 2 AM with a fever and felt unwell. He reportedly had a cough. He went to his primary care provider where he had a near syncopal episode. He reported shortness of breath. He was tachycardic into the 120s and his systolic blood pressures were in the 90s. He had a fever up to 102 ?F. He was swabbed negative for COVID flu and influenza. He has had no recent nausea vomiting nor any falls. His blood pressure for the paramedics was 110 mmHg systolically. He feels improved at the moment. Related Data Home Medications Medication Instructions Recorded Confirmed amlodipine 10 mg tablet 10 mg PO DAILY #90 tabs 05/19/21 04/19/22 hydrochlorothiazide 25 mg tablet 25 mg PO DAILY #90 tabs 05/19/21 04/19/22 losartan 100 mg tablet 100 mg PO DAILY #90 tabs 05/19/21 04/19/22 metoprolol succinate 100 mg 100 mg PO DAILY #90 tabs 05/19/21 04/19/22 tablet,extended release 24 hr omeprazole 20 mg capsule,delayed 20 mg PO DAILY 07/15/21 04/19/22 release amoxicillin 875 mg-potassium 1 tab PO BID 10 days #20 tabs 04/19/22 clavulanate 125 mg tablet doxycycline hyclate 100 mg capsule 100 mg PO BID #10 caps 04/19/22 Previous Rx's Medication Instructions Recorded amlodipine 10 mg tablet 10 mg PO DAILY #90 tabs 05/19/21 hydrochlorothiazide 25 mg tablet 25 mg PO DAILY #90 tabs 05/19/21 losartan 100 mg tablet 100 mg PO DAILY #90 tabs 05/19/21 metoprolol succinate 100 mg 100 mg PO DAILY #90 tabs 05/19/21 tablet,extended release 24 hr amoxicillin 875 mg-potassium 1 tab PO BID 10 days #20 tabs 04/19/22 clavulanate 125 mg tablet doxycycline hyclate 100 mg capsule 100 mg PO BID #10 caps 04/19/22 Allergies Allergy/AdvReac Type Severity Reaction Status Date / Time lisinopril AdvReac Intermediate Verified 04/19/22 10:06 General Stated Complaint: [id number] DARRELL: 2 PFSH All Active Problems (Updated 04/19/22 @ 13:49 by Arnav Wiseman MD) Pneumonia involving left lung (Acute) Shortness of breath (Acute) Esophageal reflux (Chronic) Personal history of nicotine dependence (Acute) Quit in 2016 Alcohol abuse (Chronic) Quit in 2021 Empyema lung (Acute) Compressive atelectasis (Acute) Azotemia (Acute) Essential hypertension (Acute 12/25/12) Posterior tibial tendon dysfunction (PTTD) of right lower extremity (Acute) Arthritis of right subtalar joint (Acute) Osteoarthritis of right midfoot (Acute) Pes planus of right foot (Acute) Enchondroma (Acute) Medical History Alcoholic liver disease (05/03/14) Diverticulitis of colon with perforation Left lower lobe pneumonia Loculated pleural effusion Smoker Surgical History S/P partial colectomy (12/26/12) Family History Father Prostate cancer Sister No problems noted. Sister No problems noted. Brother No problems noted. Social History (Updated 01/28/22 @ 16:33 by Jo-Ann Barnett) Smoking/Tobacco Use Status: Former Tobacco Use tobacco type: cigarettes and e- cigarettes Quit Date: 02/14/17 Tobacco: How many years used: 35 Second Hand Exposure: Yes Smoking risk assessment performed?: Yes Alcohol Intake: former Drug use: Never Substance use type: does not use Caregiver/Support person: No Household members: spouse Housing: house Communication Needs: None Pets and animals: Yes Pets and animals: cat(s) and dog(s) Sexually active: Yes Do you think of yourself as: straight/heterosexual Current gender identity: male What is your relationship status?: How often do you talk on the phone with friends or family?: once per week How often do you get together with friends or relatives?: once per week Do you belong to any clubs or organized social groups?: no Panel score (0-1 are the most socially isolated patients): 1 What type of physical activity do you participate in: none, walking and weight lifting Duration: 30-45 minutes/day Frequency: daily Taniya/Restorationism: No preference Special taniya needs: No Seatbelt use: sometimes Drive 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 Head: Normocephalic, atraumatic Ear, nose, mouth, throat: Grossly normal inspection. Normal voice, handling se cretions normally. Neck: Trachea midline. Cardiovascular: Well-perfused distal extremities. Regular rate and rhythm no murmurs. Respiratory: Nonlabored respiration. Decreased left-sided breath sounds. Gastrointestinal: Nondistended abdomen. Musculoskeletal: No edema. Moving all 4 extremities spontaneously. Skin: Normal for age and race, grossly normal temperature and turgor. No acute rash. Neurologic: Alert and appropriate, no apparent acute deficits. Psychiatric: Mood and manner are appropriate. Grooming and personal hygiene are appropriate. Course Vital Signs Vital signs: Vital Signs Temperature 37.4 C 04/19/22 09:58 Pulse 108 H 04/19/22 09:58 Respiratory Rate 19 04/19/22 09:58 Blood Pressure 114/74 04/19/22 09:58 Pulse Oximetry 100 04/19/22 09:58 Temperature 37.4 C 04/19/22 09:58 Temperature Source Oral 04/19/22 09:58 Pulse 108 H 04/19/22 09:58 Respiratory Rate 19 04/19/22 09:58 Respiratory Effort Short of Breath 04/19/22 10:04 Blood Pressure 114/74 04/19/22 09:58 Blood Pressure Position Supine 04/19/22 09:58 Pulse Oximetry 100 04/19/22 09:58 Oxygen Delivery Method Nasal Cannula 04/19/22 09:58 Oxygen Flow Rate 2 04/19/22 09:58 Pain Level 0 04/19/22 09:58 Lab/Test Results Lab/Test Results: 04/19/22 10:04 Blood Blood Culture - Pending 04/19/22 10:04 Blood Blood Culture - Pending POCUS Exam (ED) Limited Cardiac Exam DATE OF EXAM: 04/19/22 TIME OF EXAM: 10:33 REASON FOR EXAM: Hypotension VISUALIZED STRUCTURES: Four Chambers, Left ventricle, Aortic valve and Interventricular septum VIEW OBTAINED: Apical 4-Chamber, Parasternal long-axis, Subxiphoid and Other (Lungs) PERTINENT FINDINGS/IMPRESSION: Other (Good squeeze, aortic outflow tract less than 4 cm, RV less than LV, no significant pericardial effusion. Bilateral lung sliding.) Exam complete
[2022-04-19 10:15] LABS: BE (Venous) 0 mmol/L (-2-3); HCO3 (Venous) 25 mmol/L (23-28); HGB 11.7 g/dL (13.5-17.5); MCH 27.8 pg (27.0-33.0); MCHC 32.5 % (32.0-36.0); MCV 86 fL (80-95); MPV 10.4 fL (8.0-11.0); O2 Sat (Venous) 69 %; Platelet Count 243 10^3/uL (130-400); RBC 4.21 10^6/uL (4.36-5.78); RDW 13.2 % (11.8-14.1); RDW-SD 41.2 fL; TCO2 (Venous) 23 mmol/L (24-29); WBC 10.28 10^3/uL (4.4-10.8); pCO2 (Venous) 44 mmHg (41-51); pH (Venous) 7.37 (7.31-7.41); pO2 (Venous) 37 mmHg
[2022-04-19 10:16] LABS: Lactate 1.8 mmol/L (0.6-1.4)
--- NOTE | 2022-04-19 10:23 | DI.RAD_ITS ---
Exam(s) XR PORTABLE CHEST AP EXAM: XR PORTABLE CHEST AP CLINICAL HISTORY: Shortness of breath TECHNIQUE: 2D digital imaging was performed. COMPARISON: CR,XR XR CHEST 2V PA LATERAL from 07/14/2021 CR,XR XR PORTABLE CHEST AP from 07/19/[address] CHEST WO from 07/20/2021 FINDINGS: LUNGS: Mild blunting at the left costophrenic angle. Increased density seen in left upper and lower lobes suspicious for pneumonia. Right lung clear. HEART: Normal size. AORTA: Normal diameter. BONES: Unremarkable for age. Soft tissues: Unremarkable. IMPRESSION: Left-sided pneumonia. DATA REPOSITORY: RADIATION DOSE DELIVERED:
--- NOTE | 2022-04-19 10:25 | RESPIRATORY ---
RT paged for respiratory distress at [facility] and patient having SOB with SpO2 85% on RA. Patient arrived on 2L NC, RT placed on HFNC due to syncope episode, Respiratory distress and SOB. Patient was 100% on HFNC 7L and then titrated down to 1L regular NC easily. RT checked with ER Dr and ok to leave patient. Instructed if need anything more to please page us.
[2022-04-19] MEDS: Normal Saline 1,000 ML 1000 ML IV (10:33)
[2022-04-19 10:49] LABS: Anion Gap 8.3 mmol/L (3-11); BUN 28 mg/dL (7-18); CO2 25.7 mmol/L (21.0-32.0); CREATININE 1.4 mg/dL (0.70-1.30); Calcium 8.7 mg/dL (8.5-10.1); Chloride 108 mmol/L (98-107); Estimated GFR 57.54 (mL/min/1.73m2); Glucose 142 mg/dL (74-106); Potassium 3.3 mmol/L (3.5-5.1); Sodium 142 mmol/L (136-145); Troponin I < 50 ng/L (<or=60)
[2022-04-19] MEDS: PIPERACILLIN/TAZO 3.375 GM in Normal Saline 50 ML IVPB (10:51)
[2022-04-19 10:57] LABS: D-Dimer 816 ng/mlFEU (<500)
--- NOTE | 2022-04-19 11:00 | DI.CT_ITS ---
Exam(s) CT CHEST PE CTA EXAM: CT CHEST PE CTA CLINICAL HISTORY: Chest pain syncope. TECHNIQUE: Imaging Protocol: Axial CT angiography was performed with multi-slice acquisition and mu lti-planar reconstructions as well as axial, coronal and sagittal MIP reconstructions. CONTRAST MATERIAL: Intravenous: Omnipaque 350 Contrast volume:100 ml COMPARISON: CT CT CHEST WO from 07/20/2021 CR XR PORTABLE CHEST AP from 04/19/2022 FINDINGS: Pulmonary Arteries: No evidence of filling defect to suggest pulmonary emboli. Tracheobronchial tree: Patent where visualized. Mediastinum and Nunu: No dominant adenopathy or fluid collection. Pulmonary parenchyma: Patchy airspace infiltrates noted in left upper and lower lobes. Minimal infil trates also seen anterior right upper lobe. No dominant measurable mass. Pleura: Posterior pleural calcification on the left. No effusion or pneumothorax. Heart: The heart is not dilated. coronary artery calcifications are seen. Aorta: Thoracic aorta non-dilated. No aneurysm. No dissection. Upper abdomen: Moderate size hiatal hernia. Bones: Old left posterior rib deformities Tubes, Catheters, and Lines: None IMPRESSION: No evidence of pulmonary embolism. Predominantly left-sided pneumonia. Findings called to Dr. Wiseman of the emergency department. RADIATION DOSE DELIVERED: 416.79mGy.cm Total DLP DATA REPOSITORY: All CT scans at this facility are submitted to the National Radiology Data Registry (NRDR) Dose Index Registry (DIR) with the [employer] (ACR). RADIATION OPTIMIZATION: All CT scans at this facility use at least one of these dose optimization te chniques: automated exposure control; mA and/or kV adjustment per patient size (includes targeted exa ms where dose is matched to clinical indication); or iterative reconstruction.
[2022-04-19] MEDS: Potassium Chloride 20 MEQ TABCR 40 MEQ PO (11:39)
[2022-04-19] MEDS: Omnipaque 350 MG/ML 100 ML BTL IJ (12:07)
[2022-04-19] MEDS: Normal Saline - Diluent 50 ML VIAL IJ (12:07)
[2022-04-19] MEDS: Normal Saline Flush 10 ML SYR IVP (12:08)
[2022-04-19 13:14] LABS: Lactate 2.6 mmol/L (0.6-1.4)
[2022-04-19 13:39] LABS: Troponin I < 50 ng/L (<or=60)
[2022-04-19] MEDS: Acetaminophen 500 MG TAB 1000 MG PO (13:58)
[2022-04-19] MEDS: Doxycycline Hyclate 100 MG CAP PO (13:58)
[2022-04-19] MEDS: Amoxicillin 875/Clav. 125 TAB PO (13:58)
--- NOTE | 2022-04-20 11:53 | W.ED.FU ---
Date of service: 04/20/22 Time of Service: 11:56 Follow Up Plan: Blood culture results from ED visit 04/19/2022 were conveyed to me: Gram-positive cocci in clusters. No further differentiation. I contacted the patient who notes has been taking oral antibiotics and feeling better. I reviewed results with him and encouraged to return to the emergency department immediately for IV antibiotics.
== END 2022-04-19 14:13 | disposition home or self-care (01) ==
PROVIDERS: Emergency Provider Emergency Medicine; PCP Nurse Practitioner Family
DX: J18.9 Pneumonia, unspecified organism (principal); R55 Syncope and collapse; R00.0 Tachycardia, unspecified; R78.81 Bacteremia
CPT/HCPCS: 36415; 71275; 80048; 82805; 85027; 87040; 87077; 93005; 93308; 96361; 96365; 99285; 71045; 83605; 84484; 85379; 87186; 93010; J2543; J3490

== ENCOUNTER 2022-04-20 14:10 | Inpatient (IN) | payer BC, SELFPAY ==
[2022-04-20 14:35] VITALS: BP 112/59; PULSE 80; RESP 16; TEMP 36.9; O2SAT 98
--- NOTE | 2022-04-20 14:43 | ED.GENADUL_ITS ---
Discharge Plan Disposition Patient Disposition: Admit to [facility] Condition: Stable Discharge Details Chief Complaint: Recheck Clinical Impression: Bacteremia, Pneumonia Primary Care Provider: Bo Brown ED Provider: Deuce Patricia Home Meds and New Rx's Prescriptions: No Action amlodipine 10 mg tablet 10 mg PO DAILY Qty: 90 2RF hydrochlorothiazide 25 mg tablet 25 mg PO DAILY Qty: 90 2RF losartan 100 mg tablet 100 mg PO DAILY Qty: 90 2RF metoprolol succinate 100 mg tablet extended release 24 hr 100 mg PO DAILY Qty: 90 2RF omeprazole 20 mg Capsule,Delayed Release(Dr/Ec) 20 mg PO DAILY doxycycline hyclate 100 mg capsule 100 mg PO BID Qty: 10 0RF amoxicillin-pot clavulanate 875-125 mg tablet 1 tab PO BID 10 Days Qty: 20 0RF Medical Decision Making 61-year-old male with history of alcohol abuse and hypertension and fevers 2 days ago, seen here in ED yesterday after syncopal episode at primary care provider associated with shortness of breath concerning for pneumonia. Patient found to have pneumonia on CT scan. Lactate was elevated. He was given a dose of Zosyn IV. He was discharged on Augmentin and doxycycline. He notes he is feeling better today but unfortunately blood cultures growing gram-positive cocci in clusters. Plan to continue IV antibiotics until more culture sensitivities available. I will give Zosyn IV and vancomycin IV. I called and spoke with on-call hospitalist, Dr. Patino, discussed ED presentation and course, he will admit the patient. Medical Records Medical records reviewed: Yes I reviewed the patient's medical records. Medical records narrative: Chest CT 04/19/22: FINDINGS: Pulmonary Arteries: No evidence of filling defect to suggest pulmonary emboli. Tracheobronchial tree: Patent where visualized. Mediastinum and Nunu: No dominant adenopathy or fluid collection. Pulmonary parenchyma: Patchy airspace infiltrates noted in left upper and lower lobes.? Minimal infiltrates also seen anterior right upper lobe.? No dominant measurable mass. Pleura: Posterior pleural calcification on the left.? No effusion or pneumothorax. Heart: The heart is not dilated.? coronary artery calcifications are seen. Aorta: Thoracic aorta non-dilated.? No aneurysm.? No dissection.? Upper abdomen:? Moderate size hiatal hernia. Bones: Old left posterior rib deformities Tubes, Catheters, and Lines: None IMPRESSION: No evidence of pulmonary embolism. Predominantly left-sided pneumonia. Lab Data Lab results reviewed: Yes I reviewed the patient's lab results. Labs: 04/20/22 14:41 Blood Blood Culture - Pending 04/20/22 14:41 Blood Blood Culture - Pending Laboratory Tests Range/Units 04/20/22 04/20/22 15:00 15:00 WBC (4.4-10.8) 10^3/uL 19.11 H RBC (4.36-5.78) 10^6/uL 3.83 L Hgb (13.5-17.5) g/dL 10.7 L Hct (40.0-50.0) % 33.3 L MCV (80-95) fL 87 MCH (27.0-33.0) pg 27.9 MCHC (32.0-36.0) % 32.1 RDW (11.8-14.1) % 13.9 Plt Count (130-400) 10^3/uL 287 MPV (8.0-11.0) fL 10.3 Immature Gran % 1.0 Neutrophils % 81.5 Lymphocytes % 9.4 Monocytes % 6.7 Eosinophils % 1.2 Basophils % 0.2 Nucleated RBC % (0.0-0.3) % 0.0 Absolute Neutrophils (1.2-6.7) 10^3/uL 15.57 H Absolute Lymphocytes (1.2-3.4) 10^3/uL 1.80 Absolute Monocytes (0.1-0.8) 10^3/uL 1.28 H Absolute Eosinophils (0.0-0.7) 10^3/uL 0.23 Absolute Basophils (0.0-0.2) 10^3/uL 0.04 Sodium (136-145) mmol/L 142 Potassium (3.5-5.1) mmol/L 3.9 Chloride (98-107) mmol/L 106 Carbon Dioxide (21.0-32.0) mmol/L 28.9 Anion Gap (3-11) mmol/L 7.1 BUN (7-18) mg/dL 30 H Creatinine (0.70-1.30) mg/dL 1.5 H Est GFR (CKD-EPI 2020) (mL/min/1.73m2) 52.97 Glucose (74-106) mg/dL 103 Calcium (8.5-10.1) mg/dL 9.1 Total Bilirubin (0.2-1.0) mg/dL 0.3 AST (15-37) U/L 8 L ALT (16-63) U/L 15 L Alkaline Phosphatase (46-116) U/L 104 Total Protein (6.4-8.2) g/dL 7.2 Albumin (3.4-5.0) g/dL 3.0 L HPI General Mode of arrival: ambulatory . Date/Time Provider Initiated Documentation: 04/20/22 14:24 . Limitations to Documentation: no limitations . Information obtained by: patient . HPI Narrative: 61-year-old male called back to the emergency [place] for positive blood cultures. Patient was seen here yesterday after syncopal episode in PCP office.CT of the chest revealed pneumonia. He received Zosyn and IV fluids and was feeling better and was discharged home. Blood cultures are growing gram- positive cocci in clusters. I contacted him today to recommend he return to the [facility]. He does note he has been feeling better since yesterday but admits that he is quite stoic. Related Data Home Medications Medication Instructions Recorded Confirmed amlodipine 10 mg tablet 10 mg PO DAILY #90 tabs 05/19/21 04/20/22 hydrochlorothiazide 25 mg tablet 25 mg PO DAILY #90 tabs 05/19/21 04/20/22 losartan 100 mg tablet 100 mg PO DAILY #90 tabs 05/19/21 04/20/22 metoprolol succinate 100 mg 100 mg PO DAILY #90 tabs 05/19/21 04/20/22 tablet,extended release 24 hr omeprazole 20 mg capsule,delayed 20 mg PO DAILY 07/15/21 04/20/22 release amoxicillin 875 mg-potassium 1 tab PO BID 10 days #20 tabs 04/19/22 04/20/22 clavulanate 125 mg tablet doxycycline hyclate 100 mg capsule 100 mg PO BID #10 caps 04/19/22 04/20/22 Previous Rx's Medication Instructions Recorded amlodipine 10 mg tablet 10 mg PO DAILY #90 tabs 05/19/21 hydrochlorothiazide 25 mg tablet 25 mg PO DAILY #90 tabs 05/19/21 losartan 100 mg tablet 100 mg PO DAILY #90 tabs 05/19/21 metoprolol succinate 100 mg 100 mg PO DAILY #90 tabs 05/19/21 tablet,extended release 24 hr amoxicillin 875 mg-potassium 1 tab PO BID 10 days #20 tabs 04/19/22 clavulanate 125 mg tablet doxycycline hyclate 100 mg capsule 100 mg PO BID #10 caps 04/19/22 Allergies Allergy/AdvReac Type Severity Reaction Status Date / Time lisinopril AdvReac Intermediate Verified 04/20/22 14:39 General Stated Complaint: Recheck DARRELL: 3 Review of Systems All systems reviewed & are unremarkable except as noted in HPI and below Constitutional Constitutional: Reports fever(s) Cardiovascular Cardiovascular: Reports dyspnea Respiratory Respiratory: Reports cough and Reports dyspnea PFSH All Active Problems (Updated 04/20/22 @ 15:46 by Deuce Patricia MD) Pneumonia involving left lung (Acute) Bacteremia (Acute) Pneumonia (Acute) Shortness of breath (Acute) Esophageal reflux (Chronic) Personal history of nicotine dependence (Acute) Quit in 2016 Alcohol abuse (Chronic) Quit in 2021 Empyema lung (Acute) Compressive atelectasis (Acute) Azotemia (Acute) Essential hypertension (Acute 12/25/12) Posterior tibial tendon dysfunction (PTTD) of right lower extremity (Acute) Arthritis of right subtalar joint (Acute) Osteoarthritis of right midfoot (Acute) Pes planus of right foot (Acute) Enchondroma (Acute) Medical History Alcoholic liver disease (05/03/14) Diverticulitis of colon with perforation Left lower lobe pneumonia Loculated pleural effusion Smoker Surgical History S/P partial colectomy (12/26/12) Family History Father Prostate cancer Sister No problems noted. Sister No problems noted. Brother No problems noted. Social History Smoking/Tobacco Use Status: Former Tobacco Use tobacco type: cigarettes and e- cigarettes Quit Date: 02/14/17 Tobacco: How many years used: 35 Second Hand Exposure: Yes Smoking risk assessment performed?: Yes Alcohol Intake: former Drug use: Never Substance use type: does not use Caregiver/Support person: No Household members: spouse Housing: house Communication Needs: None Pets and animals: Yes Pets and animals: cat(s) and dog(s) Sexually active: Yes Do you think of yourself as: straight/heterosexual Current gender identity: male What is your relationship status?: How often do you talk on the phone with friends or family?: once per week How often do you get together with friends or relatives?: once per week Do you belong to any clubs or organized social groups?: no Panel score (0-1 are the most socially isolated patients): 1 What type of physical activity do you participate in: none, walking and weight lifting Duration: 30-45 minutes/day Frequency: daily Taniya/Jewish: No preference Special taniya needs: No Seatbelt use: sometimes Drive 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 Do you feel safe at home: Yes Do you feel safe in your relationship?: Yes Exam Const General: cooperative and no acute distress HENMT Mouth: moist mucous membranes Eyes Conjunctivae: normal conjunctivae Sclera: normal sclerae Resp Auscultation: clear to auscultation bilaterally, no rales, no rhonchi and no wheezes Cardio Rate: regular rate and not tachycardic Rhythm: regular rhythm Heart Sounds: murmur systolic II/ GI Palpation: soft, not firm, no guarding, no masses, not rigid and nontender Skin General skin exam: no rashes or lesions noted Neuro General: patient alert, patient awake and tone normal Extrem General: no edema Course Vital Signs Vital signs: Vital Signs Temperature 36.9 C 04/20/22 14:35 Pulse 80 04/20/22 14:35 Respiratory Rate 16 04/20/22 14:35 Blood Pressure 112/59 L 04/20/22 14:35 Pulse Oximetry 98 04/20/22 14:35 Temperature 36.9 C 04/20/22 14:35 Temperature Source Oral 04/20/22 14:35 Pulse 80 04/20/22 14:35 Respiratory Rate 16 04/20/22 14:35 Respiratory Effort Normal, Non-Labored 04/20/22 14:38 Blood Pressure 112/59 L 04/20/22 14:35 Blood Pressure Position Supine 04/20/22 14:35 Pulse Oximetry 98 04/20/22 14:35 Oxygen Delivery Method Room Air 04/20/22 14:35 Oxygen Flow Rate 0 04/20/22 14:35 Pain Level 0 03/07/23 14:35 Lab/Test Results Lab/Test Results: 04/20/22 14:41 Blood Blood Culture - Pending 04/20/22 14:41 Blood Blood Culture - Pending
[2022-04-20 15:08] LABS: Abs Immature Grans 0.19 10^3/uL (0.0-0.06); Absolute Basophil Count 0.04 10^3/uL (0.0-0.2); Absolute Eosinophil Count 0.23 10^3/uL (0.0-0.7); Absolute Monocyte Count 1.28 10^3/uL (0.1-0.8); Absolute Neutrophil Count 15.57 10^3/uL (1.2-6.7); Basophils % 0.2; Eosinophils % 1.2; HCT 33.3 % (40.0-50.0); HGB 10.7 g/dL (13.5-17.5); Lymphocytes % 9.4; MCH 27.9 pg (27.0-33.0); MCHC 32.1 % (32.0-36.0); MCV 87 fL (80-95); MPV 10.3 fL (8.0-11.0); Monocytes % 6.7; Neutrophils % 81.5; Platelet Count 287 10^3/uL (130-400); RBC 3.83 10^6/uL (4.36-5.78); RDW 13.9 % (11.8-14.1); RDW-SD 43.6 fL; WBC 19.11 10^3/uL (4.4-10.8)
[2022-04-20 15:28] LABS: ALT 15 U/L (16-63); AST 8 U/L (15-37); Alkaline Phosphatase 104 U/L (46-116); Anion Gap 7.1 mmol/L (3-11); BUN 30 mg/dL (7-18); Bilirubin, Total 0.3 mg/dL (0.2-1.0); CO2 28.9 mmol/L (21.0-32.0); CREATININE 1.5 mg/dL (0.70-1.30); Calcium 9.1 mg/dL (8.5-10.1); Chloride 106 mmol/L (98-107); Estimated GFR 52.97 (mL/min/1.73m2); Glucose 103 mg/dL (74-106); Potassium 3.9 mmol/L (3.5-5.1); Sodium 142 mmol/L (136-145); Total Protein 7.2 g/dL (6.4-8.2)
[2022-04-20] MEDS: PIPERACILLIN/TAZO 4.5 GM in Normal Saline 100 ML IVPB (15:49)
[2022-04-20 16:01] LABS: Source Nasal/Nares
--- NOTE | 2022-04-20 16:15 | W.PM.HP.N ---
Date of service: 04/20/22 Time of Service: 16:15 Assessment and Plan Assessment and plan (1) Bacteremia: Status: Acute Assessment and plan: one bottle from yesterday growing gram + cocci in cluster, other bottle no growth at 24 hours. received IV zosyn and vanco in ED (2) Pneumonia involving left lung: Status: Acute Assessment and plan: zosyn and vanco while hospitalized, day 1 if cultures unremarkable, plan to discharge home to complete course of doxycycline and augmentin as initiated. sputum, strep pneum, legionella pending (3) Essential hypertension: Status: Acute Assessment and plan: stable, continue home medication and monitor. discussed with DR Patino History of Present Illness History of Present Illness Chief Complaint: bacteremia Narrative: This is a 61 year old male with past medical history of empyema, hypertension who presented to the ED yesterday for evaluation of respiratory illness. he was diagnosed with pneumonia and discharged home oral antibiotics. today one blood culture tube is positive for gram positive cocci in clusters. clinically he is feeling better but white count elevated at 19 from normal yesterday. repeat cultures obtained. he was given iv zosyn and plan for vanco while awaiting ID and repeat cultures. no oxygen requirements and eating and drinking well. Review of Systems All systems reviewed & are unremarkable except as noted in HPI and below PFSH All Active Problems (Updated 04/20/22 @ 15:46 by Deuce Patricia MD) Pneumonia involving left lung (Acute) Bacteremia (Acute) Pneumonia (Acute) Shortness of breath (Acute) Esophageal reflux (Chronic) Personal history of nicotine dependence (Acute) Quit in 2016 Alcohol abuse (Chronic) Quit in 2021 Empyema lung (Acute) Compressive atelectasis (Acute) Azotemia (Acute) Essential hypertension (Acute 12/25/12) Posterior tibial tendon dysfunction (PTTD) of right lower extremity (Acute) Arthritis of right subtalar joint (Acute) Osteoarthritis of right midfoot (Acute) Pes planus of right foot (Acute) Enchondroma (Acute) Medical History Alcoholic liver disease (05/03/14) Diverticulitis of colon with perforation Left lower lobe pneumonia Loculated pleural effusion Smoker Surgical History S/P partial colectomy (12/26/12) Family History Father Prostate cancer Sister No problems noted. Sister No problems noted. Brother No problems noted. Social History Smoking/Tobacco Use Status: Former Tobacco Use tobacco type: cigarettes and e-cigarettes Quit Date: 02/14/17 Tobacco: How many years used: 35 Second Hand Exposure: Yes Smoking risk assessment performed?: Yes Alcohol Intake: former Drug use: Never Substance use type: does not use Caregiver/Support person: No Household members: spouse Housing: house Communication Needs: None Pets and animals: Yes Pets and animals: cat(s) and dog(s) Sexually active: Yes Do you think of yourself as: straight/heterosexual Current gender identity: male What is your relationship status?: How often do you talk on the phone with friends or family?: once per week How often do you get together with friends or relatives?: once per week Do you belong to any clubs or organized social groups?: no Panel score (0-1 are the most socially isolated patients): 1 What type of physical activity do you participate in: none, walking and weight lifting Duration: 30-45 minutes/day Frequency: daily Taniya/Adventist: No preference Special taniya needs: No Seatbelt use: sometimes Drive 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 Do you feel safe at home: Yes Do you feel safe in your relationship?: Yes Meds Allergies and Home Medications Allergies Allergy/AdvReac Type Severity Reaction Status Date / Time lisinopril AdvReac Intermediate Verified 04/20/22 14:39 Home Medications Medication Instructions Recorded Confirmed Type amlodipine 10 mg tablet 10 mg PO DAILY #90 tabs 05/19/21 04/20/22 Rx hydrochlorothiazide 25 mg tablet 25 mg PO DAILY #90 tabs 05/19/21 04/20/22 Rx losartan 100 mg tablet 100 mg PO DAILY #90 tabs 05/19/21 04/20/22 Rx metoprolol succinate 100 mg 100 mg PO DAILY #90 tabs 05/19/21 04/20/22 Rx tablet,extended release 24 hr omeprazole 20 mg capsule,delayed 20 mg PO DAILY 07/15/21 04/20/22 History release amoxicillin 875 mg-potassium 1 tab PO BID 10 days #20 tabs 04/19/22 04/20/22 Rx clavulanate 125 mg tablet doxycycline hyclate 100 mg capsule 100 mg PO BID #10 caps 04/19/22 04/20/22 Rx Exam Const General: cooperative, healthy appearing, comfortable and no acute distress Nutritional Appearance: average body habitus Orientation: alert, awake and oriented x3 HENMT Head: normal to inspection, normocephalic and atraumatic Face and sinus: normal facial exam Mouth: oral mucosae normal Chest Chest: normal inspection of the chest Resp Effort & Inspection: normal respiratory effort Auscultation: no crackles, diminished lung sounds (left base up 1/2 way), rhonchi (occ coarse breath sound left base) and no wheezes Cardio Rate: regular rate Rhythm: regular rhythm Heart Sounds: no murmurs GI Inspection: normal to inspection Skin General skin exam: no rashes or lesions noted Neuro General: patient alert, patient awake and patient oriented x3 Extrem General: normal to inspection, full ROM and no pedal edema Results Labs 04/20/22 15:00 04/20/22 15:00 Labs: Laboratory Results - last 24 hr 04/20/22 04/20/22 04/20/22 15:00 15:00 15:54 WBC 19.11 H RBC 3.83 L Hgb 10.7 L Hct 33.3 L MCV 87 MCH 27.9 MCHC 32.1 RDW 13.9 Plt Count 287 MPV 10.3 Immature Gran % 1.0 Neutrophils % 81.5 Lymphocytes % 9.4 Monocytes % 6.7 Eosinophils % 1.2 Basophils % 0.2 Nucleated RBC % 0.0 Absolute Neutrophils 15.57 H Absolute Lymphocytes 1.80 Absolute Monocytes 1.28 H Absolute Eosinophils 0.23 Absolute Basophils 0.04 Sodium 142 Potassium 3.9 Chloride 106 Carbon Dioxide 28.9 Anion Gap 7.1 BUN 30 H Creatinine 1.5 H Est GFR (CKD-EPI 2020) 52.97 Glucose 103 Calcium 9.1 Total Bilirubin 0.3 AST 8 L ALT 15 L Alkaline Phosphatase 104 Total Protein 7.2 Albumin 3.0 L COVID-19 Source Nasal/Nares Last Vital Signs Temp 36.9 C 04/20/22 14:35 Pulse 80 04/20/22 14:35 Resp 16 04/20/22 14:35 BP 112/59 L 03/07/23 14:35 Pulse Ox 98 04/20/22 14:35 Time Spent Time spent with Patient: 40-54 minutes Time was spent: preparing to see the patient(eg.review tests), ordering medications,tests, procedures, referring, communicating with other health personal care aid and indepentently interpreting results
[2022-04-20 16:21] VITALS: BP 121/74; PULSE 72; RESP 16; TEMP 37.3; O2SAT 99
[2022-04-20 16:33] LABS: COVID-19 PCR Negative (Negative)
[2022-04-20] MEDS: VANCOMYCIN/WATER (PEG) 2 GM/400 ML BAG IV (18:04)
[2022-04-20 19:25] VITALS: RESP 16; O2SAT 96
[2022-04-20 19:40] VITALS: BP 125/74; PULSE 81; RESP 16; TEMP 37.3; O2SAT 96
[2022-04-20] MEDS: Normal Saline Flush 10 ML SYR IVP (20:37)
[2022-04-20 23:21] VITALS: BP 125/75; PULSE 80; RESP 16; TEMP 36.9; O2SAT 96
[2022-04-21] MEDS: Acetaminophen 325 MG TAB 650 MG PO (00:27)
[2022-04-21] MEDS: Melatonin 3 MG TAB PO (00:28)
[2022-04-21 06:26] LABS: Abs Immature Grans 0.08 10^3/uL (0.0-0.06); Absolute Basophil Count 0.03 10^3/uL (0.0-0.2); Absolute Eosinophil Count 0.17 10^3/uL (0.0-0.7); Absolute Lymphocyte Count 1.69 10^3/uL (1.2-3.4); Absolute Monocyte Count 1.08 10^3/uL (0.1-0.8); Basophils % 0.2; Eosinophils % 1.2; HCT 31.5 % (40.0-50.0); HGB 10.5 g/dL (13.5-17.5); Immature Grans % 0.6; Lymphocytes % 11.8; MCH 28.7 pg (27.0-33.0); MCHC 33.3 % (32.0-36.0); MCV 86 fL (80-95); Monocytes % 7.5; Neutrophils % 78.7; Platelet Count 283 10^3/uL (130-400); RBC 3.66 10^6/uL (4.36-5.78); RDW 13.9 % (11.8-14.1); RDW-SD 43.4 fL; WBC 14.36 10^3/uL (4.4-10.8)
[2022-04-21 06:44] LABS: ALT 17 U/L (16-63); AST 14 U/L (15-37); Albumin 2.5 g/dL (3.4-5.0); Alkaline Phosphatase 92 U/L (46-116); Anion Gap 8.8 mmol/L (3-11); BUN 24 mg/dL (7-18); Bilirubin, Total 0.3 mg/dL (0.2-1.0); CO2 25.2 mmol/L (21.0-32.0); CREATININE 1.4 mg/dL (0.70-1.30); Chloride 108 mmol/L (98-107); Estimated GFR 57.54 (mL/min/1.73m2); Glucose 127 mg/dL (74-106); Potassium 3.9 mmol/L (3.5-5.1); Sodium 142 mmol/L (136-145); Total Protein 6.7 g/dL (6.4-8.2)
[2022-04-21 07:10] VITALS: BP 113/71; PULSE 65; RESP 16; TEMP 36.3; O2SAT 98
[2022-04-21] MEDS: amLODIPine 10 MG TAB PO (07:35)
[2022-04-21] MEDS: Losartan 50 MG TAB 100 MG PO (07:36)
[2022-04-21] MEDS: Omeprazole 20 MG CAPCR PO (07:36)
[2022-04-21] MEDS: Metoprolol CR 100 MG TABCR PO (07:36)
[2022-04-21] MEDS: hydroCHLOROthiazide 25 MG TAB PO (07:36)
--- NOTE | 2022-04-21 09:37 | PDOC.CMIN ---
- If Service Date Differs Date of service: 04/21/22 Time of Service: 09:37 Care Management Initial Assess REASON FOR HOSPITALIZATION:: Bacteremia, Pneumonia involving left lung, Essential hypertension PAST MEDICAL HISTORY/PAST SURGICAL HISTORY:: All Active Problems (Updated 04/20/22 @ 15:46 by Deuce Patricia MD). Pneumonia involving left lung (Acute). Bacteremia (Acute). Pneumonia (Acute). Shortness of breath (Acute). Esophageal reflux (Chronic). Personal history of nicotine dependence (Acute). Quit in 2016. Alcohol abuse (Chronic). Quit in 2021. Empyema lung (Acute). Compressive atelectasis (Acute). Azotemia (Acute). Essential hypertension (Acute 12/25/12). Posterior tibial tendon dysfunction (PTTD) of right lower extremity (Acute). Arthritis of right subtalar joint (Acute). Osteoarthritis of right midfoot (Acute). Pes planus of right foot (Acute). Enchondroma (Acute). Medical History. Alcoholic liver disease (05/03/14). Diverticulitis of colon with perforation. Left lower lobe pneumonia. Loculated pleural effusion. Smoker. Surgical History . S/P partial colectomy (12/26/12) PREVIOUS FUNCTIONAL STATUS/SOCIAL/FAMILY SUPPORTS:: Kena lives in [place] with his Rebecca. He has one stepson who lives in [place] and one granddaughter. Kena works in a [employer]. He is fully independent at baseline and describes himself as very physical and active. He enjoys logging and splitting wood. CURRENT FUNCTIONAL STATUS:: Kena is lying in bed when CM met with him. He is awake and easily engages in conversation. He shares that he is feeling better and is eager to discharge home when his abx course is known. ADVANCE DIRECTIVES:: none on file Has patient been provided with info about the portal/API?: Yes Did the patient sign up for the portal?: No CODE STATUS:: Full Code INSURANCE COVERAGE / FINANCIAL ISSUES:: [employer] CURRENT HOME/COMMUNITY SERVICES/EQUIPMENT:: None PRIMARY CARE PHYSICIAN:: Bo Brown POTENTIAL DISCHARGE NEEDS:: follow up with PCP and plan of care PATIENT/FAMILY EDUCATION NEEDS:: Review of discharge instructions, limitations, activity, diet, medications, discuss Ask Me Three TRANSPORTATION:: via private vehicle with family PLAN:: Kena will likley be discharged home with no new services, unless home IV ABX are indicated. Kena will follow up with his community providers and plan of care and transport with family. CM will continue to support Kena and assess for ongoing discharge concerns.
[2022-04-21 11:21] VITALS: BP 109/69; PULSE 70; RESP 16; TEMP 37.1; O2SAT 97
--- NOTE | 2022-04-21 12:28 | W.PM.PROGNOT ---
Date of Service Date of service: 04/21/22 Time of Service: 12:28 Assessment and Plan Assessment and plan (1) Bacteremia: Status: Acute Assessment and plan: one bottle growing gram + cocci in cluster, other bottle no growth at 48 hours. continue IV zosyn and vanco pending cx - (2) Pneumonia involving left lung: Status: Acute Assessment and plan: zosyn and vanco while hospitalized, day 2 if cultures unremarkable, plan to discharge home to complete course of doxycycline and augmentin as initiated. sputum, strep pneum, legionella pending (3) Essential hypertension: Status: Acute Assessment and plan: stable, continue home medication and monitor. (4) DVT prophylaxis: Status: Deleted Assessment and plan: Enoxaparin discussed with Dr Patino (5) Discharge planning issues: Status: Deleted Assessment and plan: Home after cultures are determined for outpt tx decisions Subjective Subjective Patient reports: no new complaints, feels better, tolerating a regular diet, voiding w/o difficulty, bowel movement and afebrile; denies diarrhea, nausea or vomiting Interval history since last seen: Kena states he is feeling better and understands he is waiting to see what the BC grows to determine proper tx and he is fine with staying here in the hospital until then. He reports he is feeling well. His VS are stable, he has not had fever. Exam Narrative Exam Narrative: Awake, alert sitting upright in bed watching his iPad Const General: cooperative, healthy appearing, comfortable and no acute distress Nutritional Appearance: average body habitus Orientation: alert, awake and oriented x3 HENMT Head: normal to inspection, normocephalic and atraumatic Face and sinus: normal facial exam Mouth: oral mucosae normal Chest Chest: normal inspection of the chest Resp Effort & Inspection: normal respiratory effort Auscultation: no crackles, diminished lung sounds (left base up 1/2 way), rhonchi (occ coarse breath sound left base) and no wheezes Cardio Rate: regular rate Rhythm: regular rhythm Heart Sounds: no murmurs GI Inspection: normal to inspection Skin General skin exam: no rashes or lesions noted Neuro General: patient alert, patient awake and patient oriented x3 Extrem General: normal to inspection, full ROM and no pedal edema Objective Last Vital Signs Temp 37.1 C 04/21/22 11:21 Pulse 70 04/21/22 11:21 Resp 16 04/21/22 11:21 BP 109/69 04/21/22 11:21 Pulse Ox 97 04/21/22 11:21 Laboratory Results - last 24 hr 04/20/22 04/20/22 04/20/22 15:00 15:00 15:54 WBC 19.11 H RBC 3.83 L Hgb 10.7 L Hct 33.3 L MCV 87 MCH 27.9 MCHC 32.1 RDW 13.9 Plt Count 287 MPV 10.3 Immature Gran % 1.0 Neutrophils % 81.5 Lymphocytes % 9.4 Monocytes % 6.7 Eosinophils % 1.2 Basophils % 0.2 Nucleated RBC % 0.0 Absolute Neutrophils 15.57 H Absolute Lymphocytes 1.80 Absolute Monocytes 1.28 H Absolute Eosinophils 0.23 Absolute Basophils 0.04 Sodium 142 Potassium 3.9 Chloride 106 Carbon Dioxide 28.9 Anion Gap 7.1 BUN 30 H Creatinine 1.5 H Est GFR (CKD-EPI 2020) 52.97 Glucose 103 Calcium 9.1 Total Bilirubin 0.3 AST 8 L ALT 15 L Alkaline Phosphatase 104 Total Protein 7.2 Albumin 3.0 L COVID-19 Source Nasal/Nares SARS-CoV-2 (PCR) Negative 04/21/22 04/21/22 06:09 06:09 WBC 14.36 H RBC 3.66 L Hgb 10.5 L Hct 31.5 L MCV 86 MCH 28.7 MCHC 33.3 RDW 13.9 Plt Count 283 MPV 11.0 Immature Gran % 0.6 Neutrophils % 78.7 Lymphocytes % 11.8 Monocytes % 7.5 Eosinophils % 1.2 Basophils % 0.2 Nucleated RBC % 0.0 Absolute Neutrophils 11.30 H Absolute Lymphocytes 1.69 Absolute Monocytes 1.08 H Absolute Eosinophils 0.17 Absolute Basophils 0.03 Sodium 142 Potassium 3.9 Chloride 108 H Carbon Dioxide 25.2 Anion Gap 8.8 BUN 24 H Creatinine 1.4 H Est GFR (CKD-EPI 2020) 57.54 Glucose 127 H Calcium 9.0 Total Bilirubin 0.3 AST 14 L ALT 17 Alkaline Phosphatase 92 Total Protein 6.7 Albumin 2.5 L COVID-19 Source SARS-CoV-2 (PCR) Reviewed Pertinent PMH: Yes Time Spent with Patient Time Spent with Patient: 25-34 minutes Time was spent: preparing to see the patient(eg.review tests), ordering medications,tests, procedures, referring, communicating with other health healthcare risk control consultant (w/ Dr. Patino), indepentently interpreting results, counseling the patient and care coordination
[2022-04-21] MEDS: Enoxaparin 40 MG/0.4 ML SYR SC (13:03)
[2022-04-21 14:27] VITALS: BP 112/65; PULSE 79; RESP 16; TEMP 37.4; O2SAT 96
[2022-04-21] MEDS: VANCOMYCIN/WATER (PEG) 1.75 GM/350 ML BAG IV (17:49)
[2022-04-21] MEDS: Normal Saline Flush 10 ML SYR IVP (17:53)
[2022-04-21 20:10] VITALS: BP 107/61; PULSE 70; RESP 16; TEMP 37.4; O2SAT 98
[2022-04-21] MEDS: Melatonin 3 MG TAB 6 MG PO (23:08)
[2022-04-21] MEDS: Zolpidem 5 MG TAB 10 MG PO (23:08)
[2022-04-21 23:17] LABS: Legionella Ag Detection Urine Negative (Negative)
[2022-04-21 23:41] VITALS: BP 114/70; PULSE 74; RESP 16; TEMP 36.8; O2SAT 96
--- NOTE | 2022-04-22 | DI.US_ITS ---
APPROVED REPORT EXAM: Comprehensive 2D, Doppler, and color-flow Echocardiogram Patient Location: In-Patient Room/Bed: 212 4 H Youth Development Specialist: Rebecca Coyle RDCS (AE) Indications: Bacteremia Other Information Study Quality: Adequate Conclusion Left ventricular wall thickness and chamber size. Estimated ejection fraction is 65%. Wall motion i s normal Normal right ventricular size and systolic function Both atria are normal in size There is no structural or hemodynamically significant valvular disease No valvular vegetations were identified Wall motion Left Ventricle The left ventricle is normal size. The left ventricular systolic function is normal. The left ventric ular ejection fraction is within the normal range. There is normal left ventricular wall thickness. T here is normal LV segmental wall motion. There is no ventricular septal defect visualized. LVEF is 65 %. Right Ventricle The right ventricle is normal size. The right ventricular systolic function is normal. Atria The left atrium size is normal. The right atrium size is normal. The interatrial septum is intact wit h no evidence for an atrial septal defect. Aortic Valve The aortic valve is normal in structure. Aortic valve is trileaflet. There is no aortic valvular sten osis. No aortic regurgitation is present. Mitral Valve The mitral valve is normal in structure. No evidence of mitral valve stenosis. Trace mitral regurgita tion. Tricuspid Valve The tricuspid valve is normal in structure. There is no tricuspid valve stenosis. Trace tricuspid reg urgitation. Unable to assess PA pressure. Pulmonic Valve The pulmonary valve is normal in structure. There is no pulmonic valvular stenosis. There is no pulmo eusebio valvular regurgitation. Great Vessels The aortic root is normal in size. The ascending aorta is normal in size. Aortic arch is not well vis ualized. IVC is normal in size and collapses >50% with inspiration. Pericardium There is no pericardial effusion. 2D Dimensions IVSD d PLAX 0.84 cm M: 0.6-1.2 LV Vol A2C d MOD 100.6 mL LVPW d PLAX 0.89 cm M: 0.6 - 1.2 LV Vol A4C d MOD 111.0 mL LVID d PLAX 5.03 cm M: 4.2 - 5.8 LA vol/ BSA A2C s A-L 34.6 mL/m2 LVDs 3.30 cm M: 2.5 - 4.0 LA vol/ BSA A4C s A-L 21.8 mL/m2 Ao Root d 3.69 cm M: 3.1 - 3.7 LA Vol/ BSA Biplane s A-L 27.7 mL/m2 RA Area A4C 11.74 cm2 LA Area A4C s MOD 18.04 cm2 RA Vol/ BSA A4C s A-L 13.7 mL/m2 LA Area A2C s MOD 22.48 cm2 Ao Asc Diam d 3.42 cm M: 2.6 - 3.4 LV EF A4C MOD 65.2 % LV EF Teichholz 62.2 % LV EF A2C MOD 65.2 % LVEF (Farris's) 64.59 % M: 52 - 72 LV EF Biplane MOD 64.6 % LV Volume 76.75 mL M: 62 - 150 SV 68.25 mL LV Volume Index 34.72 mL/m2 M: 34 - 74 SV Index 30.89 mL/m2 LV Vol Biplane MOD 105.7 mL FS 33.65 % M-Mode TAPSE 2.37 cm (M/F) >1.7 LV Diastology MV E' medial 0.093 (>0.07 m/s) E/A Ratio 1.0 LV E/e MED 8.45 (<14) MV E Vmax 0.79 (0.4-1.3 m/s) MV E' lateral 0.105 (>0.1 m/s) MV A Vmax 0.80 (0.4-1.3 m/s) LV E/e LAT 7.50 (<14) MV E/A Ratio 0.96 MV E/E' medial 8.49 MV E/E' lateral 7.50 Aortic Valve LVOT Area 3.09 cm2 AoV Area Vmax 2.69 cm2 LVOT Vmax 1.39 m/s AoV Area/ BSA (Vmax) 1.22 cm2/m2 LVOT Mean Jose Manuel. 0.87 m/s JESUS ALBERTO Mean Jose Manuel. 2.45 cm2 LVOT Peak Grad 7.8 mmHg JESUS ALBERTO Mean Jose Manuel. Index 1.11 cm2/m2 LVOT Mean Grad 3.6 mmHg LVOT VTI 0.261 m LVOT Diam s 1.95 cm AoV Vmax 1.60 m/s Velocity Ratio 0.87 AoV Mean Jose Manuel. 1.10 m/s AoV Peak Grad 10.3 mmHg LVOT SV 80.60 mL AoV Mean Grad 5.4 mmHg AoV VTI 0.271 m AoV Area VTI 2.97 cm2 AoV Area/ BSA (VTI) 1.34 cm/m2 Mitral Valve MV DT 265 (160-240 msec) MV PHT 77 msec MV Area PHT 2.86 cm2 MV VTI 0.289 m MV Area VTI 2.79 (4.0-6.0 cm2) Pulmonary Valve PV Vmax 1.11 (0.5-1.5 m/s) RVOT Peak Gr. 1.56 mmHg PV Peak Grad 4.9 mmHg RVOT Mean Gr. 0.85 mmHg PV Mean Grad 2.7 mmHg RVOT VTI 0.133 m PV VTI 0.208 m RVOT Vmax 0.62 m/s
[2022-04-22 03:03] VITALS: BP 114/72; PULSE 75; RESP 16; TEMP 36.7; O2SAT 96
[2022-04-22] MEDS: Omeprazole 20 MG CAPCR PO (06:35)
[2022-04-22 07:09] LABS: Abs Immature Grans 0.15 10^3/uL (0.0-0.06); Absolute Basophil Count 0.03 10^3/uL (0.0-0.2); Absolute Eosinophil Count 0.14 10^3/uL (0.0-0.7); Absolute Lymphocyte Count 1.42 10^3/uL (1.2-3.4); Absolute Neutrophil Count 7.71 10^3/uL (1.2-6.7); Basophils % 0.3; Eosinophils % 1.4; HCT 32.3 % (40.0-50.0); HGB 10.6 g/dL (13.5-17.5); Immature Grans % 1.5; Lymphocytes % 13.9; MCHC 32.8 % (32.0-36.0); MCV 85 fL (80-95); MPV 10.6 fL (8.0-11.0); Monocytes % 7.8; Neutrophils % 75.1; Platelet Count 300 10^3/uL (130-400); RBC 3.78 10^6/uL (4.36-5.78); RDW 13.8 % (11.8-14.1); RDW-SD 42.9 fL; WBC 10.25 10^3/uL (4.4-10.8)
[2022-04-22 07:28] LABS: Anion Gap 10.5 mmol/L (3-11); BUN 19 mg/dL (7-18); C-Reactive Protein 15.35 mg/dL (0.0-0.3); CO2 25.5 mmol/L (21.0-32.0); CREATININE 1.2 mg/dL (0.70-1.30); Calcium 9.1 mg/dL (8.5-10.1); Chloride 105 mmol/L (98-107); Estimated GFR 69.23 (mL/min/1.73m2); Glucose 136 mg/dL (74-106); Magnesium 1.7 mg/dL (1.8-2.4); Potassium 3.7 mmol/L (3.5-5.1); Sodium 141 mmol/L (136-145)
[2022-04-22 07:37] VITALS: BP 107/70; PULSE 69; RESP 18; TEMP 36.6; O2SAT 97
--- NOTE | 2022-04-22 08:43 | PDOC.CMPRO ---
- If Service Date Differs Date of service: 04/22/22 Time of Service: 08:43 Care Management Progress Note S/O: A: 61 year old male admitted to [facility] on 04/20/22 for Bacteremia, Pneumonia involving left lung, Essential hypertension P: Kena will likely be discharged home with no new services, unless home IV ABX are indicated. Cultures are pending. Kena will follow up with his community providers and plan of care and transport with family. CM will continue to support Kena and assess for ongoing discharge concerns.
[2022-04-22] MEDS: hydroCHLOROthiazide 25 MG TAB PO (09:18)
[2022-04-22] MEDS: Losartan 50 MG TAB 100 MG PO (09:18)
[2022-04-22] MEDS: amLODIPine 10 MG TAB PO (09:18)
[2022-04-22] MEDS: Normal Saline Flush 10 ML SYR IVP ×3 (09:19→12:38)
[2022-04-22] MEDS: Metoprolol CR 100 MG TABCR PO (09:19)
[2022-04-22 09:21] VITALS: BP 112/74; PULSE 90
--- NOTE | 2022-04-22 10:04 | CHAPLAIN ---
I had a brief visit with Kena, explained my role and offered support.
[2022-04-22] MEDS: PIPERACILLIN/TAZO 3.375 GM in Normal Saline 50 ML IVPB (10:37)
[2022-04-22 11:32] VITALS: BP 120/71; PULSE 71; RESP 18; TEMP 37; O2SAT 96
[2022-04-22] MEDS: Enoxaparin 40 MG/0.4 ML SYR SC (12:38)
[2022-04-22] MEDS: MAGNESIUM SULFATE 2 GM/50 ML BAG IVPB (12:38)
--- NOTE | 2022-04-22 13:35 | DSE_ITS ---
Date of service: 04/22/22 Time of Service: 13:35 DS: Diagnosis Discharge Diagnosis (1) Bacteremia: Status: Acute (2) Pneumonia involving left lung: Status: Acute (3) Essential hypertension: Status: Acute (4) DVT prophylaxis: Status: Deleted (5) Discharge planning issues: Status: Deleted Discharge Plan Disposition Patient Disposition: Home Condition: Good Discharge Details Reason For Visit: Pneumonia,Gram positive bacyteremia Admit Date/Time: 04/20/22 15:42 Admit Provider: Dash Patino Attending Provider: Dash Patino Primary Care Provider: Bo Brown Hospital Course Hospital Course: This is a 61 year old male patient with past medical history of empyema and hypertension who presented to the [facility] ED 04/18/2022 for evaluation of respiratory illness.? He was diagnosed with pneumonia and discharged home oral antibiotics.?04/19/2022 one blood culture tube was positive for gram positive cocci in clusters.? Clinically he was feeling better but white count elevated at 19 from normal yesterday.? Repeat cultures obtained.? He was given iv zosyn and vancomycin while awaiting ID and repeat cultures.? He had no oxygen requirements and was eating and drinking well. He was admitted to the medical floor. His blood culture grew out staph hominis. His vital signs remained stable, afebrile, no oxygen requirement. He was discharged to home with oral doxycycline stable. Discussed with Dr Kolb. Home Meds and New Rx's Prescriptions: Continued amlodipine 10 mg tablet 10 mg PO DAILY Qty: 90 2RF hydrochlorothiazide 25 mg tablet 25 mg PO DAILY Qty: 90 2RF losartan 100 mg tablet 100 mg PO DAILY Qty: 90 2RF metoprolol succinate 100 mg tablet extended release 24 hr 100 mg PO DAILY Qty: 90 2RF omeprazole 20 mg Capsule,Delayed Release(Dr/Ec) 20 mg PO DAILY doxycycline hyclate 100 mg capsule 100 mg PO BID Qty: 10 0RF Discontinued amoxicillin-pot clavulanate 875-125 mg tablet 1 tab PO BID 10 Days Qty: 20 0RF Discharge Instructions Instructions: Doxycycline (By mouth), How to Use an Incentive Spirometer (DC) Additional Instructions: Stop Augmentin. Continue doxycycline. Stand Alone Forms: Nursing Discharge Form Referrals: Bo Brown NP [Primary Care Provider] - 04/28/22 10:00 am () Activity:: Activity as Tolerated Equipment/Supplies:: No Equipment Needed Diet:: As Tolerated Discharge Orders Discharge Orders: Discharge Order (Routine); Ordered 04/22/22 Ordered By: Sruthi Murdock Discharge Data Discharge Date/Time-TO BE ENTERED AT DEPARTURE: 04/22/22 14:40 DS: Summary Time Spent with Patient providing and/or coordinating discharge services: Greater than 30 minutes Status at Discharge Functional status at discharge: independent ambulation Overall status at discharge: patient is back to baseline Mental Status: mental status grossly normal Speech and Movement: speech and movement normal Mood: congruent mood Affect: normal affect Exam Psych Mental Status: mental status grossly normal Speech and Movement: speech and movement normal Mood: congruent mood Affect: normal affect DS: Data Vitals/I&O Vitals and I&O: Vital Signs Temperature 37 C 04/22/22 11:32 Temperature Source Tympanic 04/22/22 11:32 Pulse 71 04/22/22 11:32 Pulse Rhythm Regular 04/22/22 09:00 Respiratory Rate 18 04/22/22 11:32 Respiratory Effort Normal 04/22/22 09:00 Respiratory Depth Normal 04/22/22 09:00 Respiratory Pattern Normal 04/22/22 09:00 Blood Pressure 120/71 04/22/22 11:32 Blood Pressure Position Supine 04/20/22 14:35 Pulse Oximetry 96 04/22/22 11:32 Oxygen Delivery Method Room Air 04/22/22 11:32 Oxygen Flow Rate 0 04/22/22 11:32 Pain Level 0 04/22/22 11:32 Comment pt in NAD, sitting with in room watching tv 04/20/22 16:21 Intake & Output 04/21/22 04/22/22 04/22/22 23:59 11:59 23:59 Other: Voiding Methods Toilet Data Completed and Pending Labs on day of discharge: Labs from last 24 hours 04/22/22 04/22/22 04/22/22 16:30 06:13 06:13 WBC 10.25 RBC 3.78 L Hgb 10.6 L Hct 32.3 L MCV 85 MCH 28.0 MCHC 32.8 RDW 13.8 Plt Count 300 MPV 10.6 Immature Gran % 1.5 Neutrophils % 75.1 Lymphocytes % 13.9 Monocytes % 7.8 Eosinophils % 1.4 Basophils % 0.3 Nucleated RBC % 0.0 Absolute Neutrophils 7.71 H Absolute Lymphocytes 1.42 Absolute Monocytes 0.80 Absolute Eosinophils 0.14 Absolute Basophils 0.03 Sodium 141 Potassium 3.7 Chloride 105 Carbon Dioxide 25.5 Anion Gap 10.5 BUN 19 H Creatinine 1.2 Est GFR (CKD-EPI 2020) 69.23 Glucose 136 H Calcium 9.1 Magnesium 1.7 L C-Reactive Protein 15.35 H Vancomycin Trough Pending Urine Legionella Ag 04/20/22 18:14 WBC RBC Hgb Hct MCV MCH MCHC RDW Plt Count MPV Immature Gran % Neutrophils % Lymphocytes % Monocytes % Eosinophils % Basophils % Nucleated RBC % Absolute Neutrophils Absolute Lymphocytes Absolute Monocytes Absolute Eosinophils Absolute Basophils Sodium Potassium Chloride Carbon Dioxide Anion Gap BUN Creatinine Est GFR (CKD-EPI 2020) Glucose Calcium Magnesium C-Reactive Protein Vancomycin Trough Urine Legionella Ag Negative Preliminary micro results at discharge 04/20/22 15:43 Blood Culture - Preliminary Blood NO GROWTH 24 HOURS 04/20/22 15:32 Blood Culture - Preliminary Blood NO GROWTH 24 HOURS PFSH All Active Problems (Updated 04/23/22 @ 00:04 by SAVI WHITFIELD) Pneumonia involving left lung (Acute) Bacteremia (Acute) Pneumonia (Acute) Shortness of breath (Acute) Esophageal reflux (Chronic) Personal history of nicotine dependence (Acute) Quit in 2016 Alcohol abuse (Chronic) Quit in 2021 Empyema lung (Acute) Compressive atelectasis (Acute) Azotemia (Acute) Essential hypertension (Acute 12/25/12) Posterior tibial tendon dysfunction (PTTD) of right lower extremity (Acute) Arthritis of right subtalar joint (Acute) Osteoarthritis of right midfoot (Acute) Pes planus of right foot (Acute) Enchondroma (Acute) Medical History Alcoholic liver disease (05/03/14) Diverticulitis of colon with perforation Left lower lobe pneumonia Loculated pleural effusion Smoker Surgical History S/P partial colectomy (12/26/12) Family History Father Prostate cancer Sister No problems noted. Sister No problems noted. Brother No problems noted. Social History Smoking/Tobacco Use Status: Former Tobacco Use tobacco type: cigarettes and e- cigarettes Quit Date: 02/14/17 Tobacco: How many years used: 35 Second Hand Exposure: Yes Smoking risk assessment performed?: Yes Alcohol Intake: former Drug use: Never Substance use type: does not use Caregiver/Support person: No Household members: spouse Housing: house Communication Needs: None Pets and animals: Yes Pets and animals: cat(s) and dog(s) Sexually active: Yes Do you think of yourself as: straight/heterosexual Current gender identity: male What is your relationship status?: How often do you talk on the phone with friends or family?: once per week How often do you get together with friends or relatives?: once per week Do you belong to any clubs or organized social groups?: no Panel score (0-1 are the most socially isolated patients): 1 What type of physical activity do you participate in: none, walking and weight lifting Duration: 30-45 minutes/day Frequency: daily Taniya/Mandaen: No preference Special taniya needs: No Seatbelt use: sometimes Drive intox 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
--- NOTE | 2022-04-22 14:06 | CMDISCH_ITS ---
- If Service Date Differs Date of service: 04/22/22 Time of Service: 14:06 LACE Index Scoring Tool - Questions: Length of Stay (in days): 2 Acuity (Admit via E.D.?): Yes E.D. Visits: 3 - Answers: Total Score: 8 Risk of Readmission: Low Risk Care Management Discharge Reason for Hospitalization: Bacteremia, Pneumonia involving left lung, Essential hypertension Discharge Plan: Kena is discharged home via private vehicle with family. He will follow up with community providers and discharge plan of care as prescribed. Kena will follow up with his PCP on 04/28/22 @1000, a New RX for Bactrim is transmitted to [facility] and no services are ordered. Return to work letter is given to patient prior to discharge. Patient/Family Education Needs: Review discharge instructions, limitations, medications and plan to follow up with community providers. Discuss ask me three.
[2022-04-23 15:23] LABS: Streptococcus Pneumoniae Ag, U Negative (Negative)
== END 2022-04-22 14:40 | disposition home or self-care (01) | DRG 194 ==
LOC: ER 15:49 → MS 16:17
PROVIDERS: Nurse Practitioner Acute Care; Nurse Practitioner Family; Admitting Provider Internal Medicine; Emergency Provider Student in an Organized Health Care Education/Training Program; PCP Nurse Practitioner Family; Visit Provider Internal Medicine
DX: J18.9 Pneumonia, unspecified organism (principal); R78.81 Bacteremia; I10 Essential (primary) hypertension; K21.9 Gastro-esophageal reflux disease without esophagitis; K70.9 Alcoholic liver disease, unspecified; Z90.49 Acquired absence of other specified parts of digestive tract; Z87.891 Personal history of nicotine dependence; Z79.899 Other long term (current) drug therapy
CPT/HCPCS: 36410; 36415; 80048; 80053; 87040; 87449; 87635; 96365; 99285; J1650; 80202; 83735; 85025; 86140; 87899; 93306; 94667; 99222; 99232; 99239; J2543

== ENCOUNTER 2023-02-09 01:49 | Outpatient (CLI) | payer BC, SELFPAY ==
[2023-02-09 13:43] LABS: CREATININE 1.7 mg/dL (0.70-1.30); Potassium 3.8 mmol/L (3.5-5.1)
[2023-02-09 13:44] LABS: Hemoglobin A1C 5.9 % (<5.7)
== END 2023-02-09 01:50 | disposition home or self-care (01) ==
LOC: LBO 01:49
PROVIDERS: PCP Nurse Practitioner Family; Visit Provider Nurse Practitioner Family
DX: I10 Essential (primary) hypertension (principal); Z13.1 Encounter for screening for diabetes mellitus
CPT/HCPCS: 36415; 82565; 83036; 84132

== ENCOUNTER 2023-03-25 14:40 | Outpatient (CLI) | payer BC, SELFPAY ==
[2023-03-25 14:37] LABS: HCT 32.7 % (40.0-50.0); HGB 10.4 g/dL (13.5-17.5); Reticulocyte 1.5 % (0.5-2.4)
[2023-03-25 16:06] LABS: ALT 23 U/L (16-63); AST 11 U/L (15-37); Albumin 3.1 g/dL (3.4-5.0); Alkaline Phosphatase 76 U/L (46-116); Anion Gap 10.1 mmol/L (3-11); BUN 33 mg/dL (7-18); Bilirubin, Total 0.3 mg/dL (0.2-1.0); CO2 26.9 mmol/L (21.0-32.0); CREATININE 1.6 mg/dL (0.70-1.30); Calcium 9.4 mg/dL (8.5-10.1); Chloride 107 mmol/L (98-107); Estimated GFR 48.72 (mL/min/1.73m2); Ferritin 89 ng/mL (26-388); Folate > 20.0 ng/mL (8.6-20.0); Glucose 115 mg/dL (74-106); Sodium 144 mmol/L (136-145); Total Protein 7.5 g/dL (6.4-8.2); Vitamin B12 1090 pg/mL (193-986)
[2023-03-25 16:16] LABS: GGT 14 U/L (15-85)
[2023-03-28 11:41] LABS: Haptoglobin 457 mg/dL (32-197)
== END 2023-03-25 14:41 | disposition home or self-care (01) ==
LOC: LBO 14:40
PROVIDERS: PCP Nurse Practitioner Family; Visit Provider Surgery
DX: K21.9 Gastro-esophageal reflux disease without esophagitis (principal); F10.10 Alcohol abuse, uncomplicated; I10 Essential (primary) hypertension; R79.89 Other specified abnormal findings of blood chemistry; J44.9 Chronic obstructive pulmonary disease, unspecified; Z87.891 Personal history of nicotine dependence; N18.9 Chronic kidney disease, unspecified; D64.9 Anemia, unspecified
CPT/HCPCS: 36415; 80053; 82607; 82728; 82746; 82977; 83010; 85014; 85018; 85045

== ENCOUNTER 2023-03-29 08:08 | Day surgery (SDC) | payer BC, SELFPAY ==
--- NOTE | 2023-03-29 06:39 | ANES.PREOP_ITS ---
General Info Date of Service Date Performed: 03/29/23 Height: 6 ft 2 in Weight: 100.698 kg Body Mass Index (BMI): 28.5 Surgical Procedure: Operation Date: 03/29/23 09:50 Proposed Procedure Side Surgeon p Colonoscopy/Gastroscopy Nola Marin, Meds Allergies and Home Medications Allergies Allergy/AdvReac Type Severity Reaction Status Date / Time lisinopril AdvReac Intermediate cough Verified 03/29/23 08:36 Home Medication Medication Instructions Recorded omeprazole 20 mg capsule,delayed 20 mg PO DAILY 07/15/21 release amlodipine 10 mg tablet 10 mg PO DAILY #90 tabs 03/09/23 esomeprazole magnesium 40 mg 40 mg PO DAILY #90 caps 03/09/23 capsule,delayed release (Nexium) losartan 100 mg tablet 100 mg PO DAILY #90 tabs 03/09/23 metoprolol succinate 100 mg 100 mg PO DAILY #90 tabs 03/09/23 tablet,extended release 24 hr bisacodyl 5 mg tablet,delayed 5 mg PO ONCE #4 tabs 03/25/23 release (Dulcolax (bisacodyl)) polyethylene glycol 3350 17 17 g PO ONCE #238 grams 03/25/23 gram/dose oral powder Current Visit Medications: Current Medications Generic Name Dose Route Start Last Admin Trade Name Freq PRN Reason Stop Dose Admin Hyoscyamine Sulfate 0.125 mg 03/29/23 22:33 Hyoscyamine 0.125 Mg Sl/Oral/Chew SL 04/28/23 22:32 DIRECTED PRN Ringer's Solution 1,000 mls @ 80 mls/hr 03/29/23 06:00 IV 04/27/23 23:59 INFUSION [facility] IV Miscellaneous Supplies 1 each 03/29/23 06:00 Iv Access IV 04/27/23 23:59 DIRECTED ANDERSON Ondansetron HCl 4 mg 03/29/23 22:33 Ondansetron 4 Mg/2 Ml Vial IVP 04/28/23 22:32 Q4H PRN PRN Nausea / Vomiting Sodium Chloride 0 ml 03/29/23 06:00 Normal Saline Flush 10 Ml Syr IV 04/27/23 23:59 PRN PRN Sodium Chloride 0 ml 03/29/23 06:00 Normal Saline 10 Ml Vial IJ 04/27/23 23:59 DIRECTED PRN Sterile Water 0 ml 03/29/23 06:00 Water,Injection,Sterile 10 Ml Vial IJ 04/27/23 23:59 DIRECTED PRN PFSH Active Problems Active Problems: Problem Status Onset Code Anemia D64.9 CKD (chronic kidney disease) N18.9 COPD (chronic obstructive pulmonary disease) J44.9 Esophageal reflux K21.9 Personal history of nicotine dependence Z87.891 Alcohol abuse F10.10 Azotemia R79.89 Essential hypertension 12/25/12 I10 Posterior tibial tendon dysfunction (PTTD) of right lower extremity M76.821 Arthritis of right subtalar joint M19.071 Osteoarthritis of right midfoot M19.071 Pes planus of right foot M21.41 Enchondroma D16.9 Medical History Medical History Compressive atelectasis Empyema lung Loculated pleural effusion Diverticulitis of colon with perforation Smoker Alcoholic liver disease (05/03/14) Left lower lobe pneumonia Surgical History Surgical History (Updated 03/29/23 @ 08:41 by Vidya Quinonez) [place] [place]12/26/12) Tobacco Smoking/Tobacco Use Status: Former Tobacco Use Passive smoking exposure: Yes Second hand exposure: Yes Alcohol Alcohol Intake: former Substance Use Substance use: Never Substance use type: does not use Vital Signs and Lab Results Vital Signs Most Recent Vital Signs in EMR: Temp Pulse Resp BP Pulse Ox 36.1 C L 86 16 125/86 98 03/29/23 08:20 03/29/23 08:20 03/29/23 08:20 03/29/23 08:20 03/29/23 08:20 Lab Results Blood Type / Crossmatch: No Data to Display Complete Blood Count: Hemoglobin 10.4 g/dL (13.5-17.5) L 03/25/23 14:30 Hematocrit 32.7 % (40.0-50.0) L 03/25/23 14:30 Complete Metabolic Panel: Sodium 144 mmol/L (136-145) 03/25/23 14:30 Potassium 4.0 mmol/L (3.5-5.1) 03/25/23 14:30 Chloride 107 mmol/L (98-107) 03/25/23 14:30 Carbon Dioxide 26.9 mmol/L (21.0-32.0) 03/25/23 14:30 BUN 33 mg/dL (7-18) H 03/25/23 14:30 Creatinine 1.6 mg/dL (0.70-1.30) H 03/25/23 14:30 Est GFR (CKD-EPI 2020) 48.72 (mL/min/1.73m2) 03/25/23 14:30 Calcium 9.4 mg/dL (8.5-10.1) 03/25/23 14:30 Albumin 3.1 g/dL (3.4-5.0) L 03/25/23 14:30 Glucose 115 mg/dL (74-106) H 03/25/23 14:30 Liver Function Panel: Alanine Aminotransferase (ALT/SGPT) 23 U/L (16-63) 03/25/23 14: 30 Aspartate Amino Transf (AST/SGOT) 11 U/L (15-37) L 03/25/23 14: 30 Gamma Glutamyl Transpeptidase 14 U/L (15-85) L 03/25/23 14:30 Coagulation Panel: No Data to Display Cardiac Panel: No Data to Display Arterial Blood Gas: No Data to Display Venous Blood Gas: No Data to Display Pancreas Panel: No Data to Display Thyroid Panel: No Data to Display Infectious Disease: No Data to Display Blood Cultures: No Data to Display Toxicology Panel: No Data to Display Imaging and Studies Imaging and Studies Study information below may be from another EMR and interpreted by another provider. Please see original notes in EMR for more complete details. EKG Summary: 05/06: sinus, old IMI. Echocardiogram Summary: 05/06: LVEF 65%, no WMA. no sig valve dz. Pulmonary Function Summary: 12/05: mild obstruction with normal diffusion. Anesthesia Assessment and Plan Anesthesia History Personal History: No History of Anesthesia Complications Family History: No Family History of Anesthesia Complications Exercise Tolerance Exercise Tolerance: Metabolic Equivalents>4 Cardiac & Pulmonary Exam Cardiac Exam: Normal S1/S2 Heart Sounds Pulmonary Exam: Clear Bilateral Breath Sounds Implantable Cardiac Device Does patient have a Pacemaker or an ICD?: No Airway Exam Known Difficult Airway: No Mallampati Class: 1 Mouth Opening: Normal (> 3cm) Thyromental Distance: Greater than 3 cm Neck Range of Motion: Full ROM Neck Circumference: Normal Teeth Condition: Normal Dentition ASA Classification ASA Score: ASA 2 Emergency Case?: No NPO Status NPO Status: NPO Clears >2 hours, Solids >8 hours Anesthesia Plan Resuscitation Status: Full Code Anesthesia Technique: General Anesthesia Airway Planned: Natural Airway Monitors Used: Standard Monitors Preoperative Comments:: 62 yo male for EGD/colo. Sig PMHx: COPD, s/p VATs, HTN, CKD, GERD. former smoker,
[2023-03-29 08:20] VITALS: BP 125/86; PULSE 86; RESP 16; TEMP 36.1; O2SAT 98
[2023-03-29] MEDS: Lactated Ringers 1,000 ML 80 ML IV (09:06)
[2023-03-29 09:28] VITALS: BMI 28.5
--- NOTE | 2023-03-29 09:57 | BOWEL_PTH ---
PATIENT: Kena Franco I LOC: [facility] U#:[id number] AGE/SX: 62/M ROOM: RE03/29/[address]: Nola Marin : 1960 BED: DIS: 03/29/2023 SPEC #: [id number] RECD: 03/29/23 13:01 STATUS: BETSY SMITH #: [id number] KIERAN: 03/29/23 09:[address]: Nola Marin DEPT: Surgical Specimen RECD BY: Monalisa Lowe ENTERED: 03/29/23 13:04 SP TYPE: Bowel OTHR DR: Bo Brown, GROUP HOME COUNSELOR Tissues: 1 - BIOPSY BOWEL 2 - BIOPSY BOWEL 3 - STOMACH BIOPSY 4 - STOMACH BIOPSY 5 - ESOPHAGUS BIOPSY 6 - ESOPHAGUS BIOPSY 7 - BIOPSY BOWEL 8 - BIOPSY BOWEL 9 - BIOPSY BOWEL Procedures: GROSS AND MICRO LEVEL 4 IMMUNOPEROXIDASE STAIN Comments: [id number]
[2023-03-29] MEDS: Endoscopic Tattoo 5 ML SYR IJ (10:17)
[2023-03-29 10:38] VITALS: BP 93/75; PULSE 71; RESP 16; TEMP 36.1; O2SAT 95
--- NOTE | 2023-03-29 10:49 | ENDO_ITS ---
Date of service: 03/29/23 Time of Service: 10:49 Endoscopy Report DATE OF PROCEDURE: 03/29/23 PRE-OP DIAGNOSIS: anemia/gerd POST-OP DIAGNOSIS: other (Hiatal hernia) SURGEON: Nola Marin ANESTHESIA TYPE: General:No Airway ESTIMATED BLOOD LOSS: 1 PATHOLOGY: other COMPLICATIONS: None DISPOSITION: same day PROCEDURE DESCRIPTION: After informed consent was obtained the patient was take to the procedure room and placed in a supine position. Monitors were applied and a time out was done. The patients name, date of , procedure type, allergies to medications and metal in their body was reviewed. A bite block was placed and the patient was sedated. Once sedated and comfortable the gastroscope was advanced through the oropharynx which was grossly normal into the esophagus. The proximal and mid- esophagus were normal. In the distal esophagus there was a 2 cm hiatal hernia noted. The scope was advanced into the stomach and through the pylorus into the 3rd portion of the duodenum. The duodenum was noted to be normal. Biopsies were done-see path. All specimens are retrieved and no bleeding is noted. The scope was retracted back into the stomach and biopsies were done to rule out H. pylori. There were no gastritis or ulcers. The scope was retroflexed. The cardia and fundus were noted to be normal. There is 2 cm sliding-type hiatal hernia noted. There is no esophagitis the scope was retracted back into the esophagus and biopsies were done of the GE junction to rule out Parra's. The Z line was regular. The GE junction was at 40 cm. The scope was removed and proceeded with the colonoscopy.
--- NOTE | 2023-03-29 10:57 | W.COLOREPORT ---
Date of service: 03/29/23 Time of Service: 10:57 Colonoscopy Report Date of procedure: 03/29/23 Pre-op diagnosis general: Iron deficiency anemia Post-op diagnosis procedure note: other (Singh diverticula and colon polyps) Surgeon: Nola Marin Anesthesia Type: General:No Airway Estimated blood loss (mL): 2 Pathology: other Complications: None Disposition: observation Prep: Miralax/Dulcolax Retraction Time: 18 Procedure Description: After informed consent was obtained the patient was taken to the procedure room and placed in a left decubitous position. Monitors were applied and a time out was done. The patients name, date of , procedure, allergies to medications and metal in their body was reviewed. The patient was then sedated. Once sedated and comfortable a rectal exam was done. External exam was normal. Internal exam revealed a normal sphincter tone and no palpable masses. The prostate no palpable masses. The scope was then introduced and retrofelexed. Grade 1 internal hemorrhoids x 1 column were identified. The scope was then advanced to the cecum without difficulty. The TI and appendiceal orifice were identified. The scope was then slowly retracted over 18 minutes back into the rectum. He has singh diverticula with the majority of them concentrated in either the reamaining left colon or the right colon. There is no signs of active bleeding or infection. He has a 1.5 cm polyp at 80 cm. This was tattooed with Maureen ink. This is on a long thin stalk. Part of the stalk is removed with the polyp. This is removed with a hot snare. A clip is placed over the defect. He has a 0.75 cm flat polyp at 50 cm that is removed with a cold forcep. He is another 0.5 cm flat polyp at 30 cm that is removed with a cold biting forcep. Patient has had a previous sigmoid resection- the anastomosis is widely patent. There are still diverticula on the left side. the all specimens are retrieved and no bleeding is noted the scope was removed and the patient was woken up and taken back to Same day surgery in stable condition. The patient tolerated the procedure well and there were no immediate complications. Follow up: The patient should follow up in 1-3 years unless they develop changes in bowel habits or other new gastrointestinal complaints. [place] Bowel Prep [place] Bowel Prep Right Colon: 3 Left Colon: 3 Transverse Colon: 3 Total Score: 9
--- NOTE | 2023-03-29 10:58 | W.ANESPOSTOP ---
Postoperative Evaluation Date, Time and Location Date Performed: 03/29/23 Time Performed: 10:58 Patient Location: Day Surgery Unit Vital Signs Most Recent Imported Vital Signs: Most Recent Vital Signs Temp Pulse Resp BP Pulse Ox 36.1 C L 71 16 93/75 L 95 03/29/23 10:38 03/29/23 10:38 03/29/23 10:38 03/29/23 10:38 03/29/23 10:38 Pain Score Most Recent Pain Score: Most Recent Pain Score Pain Level 0 03/29/23 10:38 Assessment Mental Status: Awake (Alert & Oriented to Patient Baseline) Airway and Respiratory Function: Patent airway with normal (patient baseline) respiratory exam Cardiovascular Function: Hemodynamically Stable Hydration Status: Adequately Hydrated Nausea & Vomiting: No Nausea or Vomiting Pain: Pt. Denies Any Pain Peripheral Nerve Block: Patient did not receive a nerve block
--- NOTE | 2023-03-29 11:02 | PDOC.DSDIS_ITS ---
Date of service: 03/29/23 Time of Service: 11:02 Discharge Plan Disposition Patient Disposition: Home Condition: Good Discharge Details Reason For Visit: stomach and colon scope Attending Provider: Nola Marin Primary Care Provider: Bo Brown Home Meds and New Rx's Prescriptions: New pantoprazole [Protonix] 40 mg tablet,delayed release (DR/EC) 40 mg PO DAILY Qty: 90 4RF Continued amlodipine 10 mg tablet 10 mg PO DAILY Qty: 90 3RF losartan 100 mg tablet 100 mg PO DAILY Qty: 90 3RF metoprolol succinate 100 mg tablet extended release 24 hr 100 mg PO DAILY Qty: 90 3RF Discontinued esomeprazole magnesium [Nexium] 40 mg capsule,delayed release(DR/EC) 40 mg PO DAILY Qty: 90 3RF bisacodyl [Dulcolax (bisacodyl)] 5 mg tablet,delayed release (DR/EC) 5 mg PO ONCE Qty: 4 0RF Rx Instructions: Take per colonoscopy instructions provided by ordering providers office polyethylene glycol 3350 17 gram/dose powder 17 g PO ONCE Qty: 238 0RF Rx Instructions: Take per colonoscopy instructions provided by ordering providers office omeprazole 20 mg Capsule,Delayed Release(Dr/Ec) 20 mg PO DAILY Discharge Instructions Additional Instructions: [facility] Colonoscopy Post- Op Instructions Instructions for Everyone who is given Anesthesia: For your safety, please do the following for the next twenty-four (24) hours: *Do Not operate a motor vehicle (car, truck, motorcycle, etc.) *Do Not drink alcoholic beverages or use any recreational drugs for the first 24 hours or while taking pain medications. The medications in your body may have a reaction that can be dangerous. *Do Not make any important decisions or sign any important papers. Findings: hiatal hernia pandiverticula multiple colon polyps -No aspirin or NSAID's for 10 days change stomach meds: Protonix 1. No lifting over 20 pounds or strenuous activity for the first 24 hours after your procedure. After 24 hours there are no restrictions on your activity but you may feel fatigued for a few days. 2. After you arrive home you may have a light meal and return to your normal diet as you can tolerate it without feeling sick to your stomach. 3. You may have a bloated, gaseous feeling in your belly (abdomen) after a colonoscopy. Passing gas and belching will help. Walking or lying down on your left side with your knees flexed may relieve the discomfort. Call the office at [phone] (Office) or [phone] (Hospital) right away if you notice any of the following: a.Vomiting of blood or ?coffee ground stools?. b.Rectal bleeding 1Tbsp, blood clots or continuous bleeding. c.Severe belly (abdominal) pain. d.A hard distended belly (abdomen) and an inability to pass gas. 4. Please don?t expect to have a normal BM (bowel movement) for 2-3 days after your procedure. 5. If there are questions regarding the findings of your procedure, please contact your doctor 6. If you are unable to contact your doctor with a problem, contact the hospital at [phone]. 7. Continue all your regular medications unless directed otherwise. I understand the above instructions and have no questions. Signature of Patient or Adult Escort Name of Responsible Adult Escort Signature of Nurse Date/Time Stand Alone Forms: Anesthesia Discharge Inst., [facility] ([facility]) Referrals: Nola Marin DO [OSTEOPATHIC DOCTOR] - 05/09/23 3:00 pm Activity:: see above Diet:: see above Discharge Orders Discharge Orders: Discharge Order (Routine); Ordered 03/29/23 Ordered By: Nola Marin Discharge Data Discharge Date/Time-TO BE ENTERED AT DEPARTURE: 03/29/23 11:54 Discharge Comment: pt d/c from [facility] DS: Diagnosis Discharge Diagnosis (1) Hiatal hernia with GERD: Status: Acute (2) Pancolonic diverticulosis: Status: Acute Asessment and Plan: The patient is seen and examined after their colonoscopy.? The patient has been able to pass gas.? They are not having abdominal pain.? They have been able to tolerate liquids and a snack.? They do not have any nausea or vomiting.? They are not having any chest pain or shortness of breath.??? They are not having any rectal bleeding. Their vital signs have been stable-see nursing notes. We discussed findings during their colonoscopy, and any biopsies that were done/polyps that were removed. The patient will be sent a letter with any biopsy results, and when to repeat the colonoscopy.-see discharge instructions. Patient was given explicit instructions to follow-up regarding colonoscopy-refer to discharge instructions.? We reviewed resumption of medications. Patient verbalized understanding and discharged in stable and satisfactory condition- See nursing notes. (3) Adenomatous colon polyp: Status: Acute (4) Esophageal reflux: Status: Chronic (5) Anemia: Status: Chronic
[2023-03-29 11:13] VITALS: BP 127/79; PULSE 64; RESP 16; TEMP 36.4; O2SAT 99
== END 2023-03-29 11:54 | disposition home or self-care (01) ==
PROVIDERS: PCP Nurse Practitioner Family; Visit Provider Surgery
PROC: (CPT 45380; principal; 2023-03-29 09:45)
DX: K21.9 Gastro-esophageal reflux disease without esophagitis (principal); D50.9 Iron deficiency anemia, unspecified; F10.11 Alcohol abuse, in remission; Z87.891 Personal history of nicotine dependence; K70.9 Alcoholic liver disease, unspecified; I10 Essential (primary) hypertension; K44.9 Diaphragmatic hernia without obstruction or gangrene; D12.4 Benign neoplasm of descending colon; K57.30 Diverticulosis of large intestine without perforation or abscess without bleeding; K64.0 First degree hemorrhoids; K31.89 Other diseases of stomach and duodenum; D12.5 Benign neoplasm of sigmoid colon
CPT/HCPCS: 45380; 45385; 45381; 43239; 88305; 88361; J2405; J2704

== ENCOUNTER 2023-04-14 14:05 | Emergency (ER) | payer BC, SELFPAY ==
[2023-04-14] VITALS (11 sets, daily range): BP systolic 113–140; BP diastolic 71–86; PULSE 78–90; RESP 16; TEMP 36.9–37; O2SAT 95–98
--- NOTE | 2023-04-14 14:30 | DI.RAD_ITS ---
Exam(s) XR CHEST 2V PA LATERAL EXAM: XR CHEST 2V PA LATERAL CLINICAL HISTORY: cough/chills TECHNIQUE: 2D digital imaging was performed. COMPARISON: CR XR PORTABLE CHEST AP from 04/19/[address] CHEST LUNG CANCER SCREEN from 12/27/2022 FINDINGS: HEART: Normal size. Aorta: Not dilated. PULMONARY VASCULATURE: Normal. LUNGS: Left-sided upper and lower lobe infiltrates. The right lung appears clear. PLEURAL SPACE: No pleural effusion or pneumothorax. BONE:Unremarkable for age. Soft tissues: Unremarkable. IMPRESSION: Left upper and lower lobe pneumonia. DATA REPOSITORY: RADIATION DOSE DELIVERED:
--- NOTE | 2023-04-14 14:45 | W.ED.GENAD ---
Discharge Plan Disposition Patient Disposition: Home Condition: Stable Discharge Details Clinical Impression: Pneumonia Primary Care Provider: Bo Brown ED Provider: Rocael Paredes Home Meds and New Rx's Prescriptions: New amoxicillin-pot clavulanate 875-125 mg tablet 1 tab PO BID 5 Days Qty: 9 0RF azithromycin 250 mg tablet 250 mg PO DAILY 4 Days Qty: 4 0RF Rx Instructions: start on day 2 of therapy No Action amlodipine 10 mg tablet 10 mg PO DAILY Qty: 90 3RF losartan 100 mg tablet 100 mg PO DAILY Qty: 90 3RF metoprolol succinate 100 mg tablet extended release 24 hr 100 mg PO DAILY Qty: 90 3RF pantoprazole [Protonix] 40 mg tablet,delayed release (DR/EC) 40 mg PO DAILY Qty: 90 4RF Discharge Instructions Instructions: Amoxicillin/Clavulanate Potassium (By mouth), Azithromycin (By mouth), Pneumonia (ED) Additional Instructions: You were seen in the emergency department for your left-sided pneumonia, it is reasonable to start antibiotics for this we provided the first doses here in the emergency department today and I sent the rest to [facility] in [place]. Please use therapeutic dosing of Tylenol (acetamenophen) & Advil (ibuprofen) in an alternating fashion as follows: Take 1000mg of Tylenol every 6 hours without missing doses- that is 4 times per day, as needed [place] in between the Tylenol dosings, take 400-600mg of Advil also on a 6 hour schedule, that is also 4 times per day. The daily maximum dosing of Tylenol is 4000mg (3,000mg or less with your existing liver disease), and the daily maximum dosing of Advil is 2400mg. This is safe to do for weeks. Please note that some common cold medications & prescription pain medications may contain acetamenophen and you need to read OTC drug labels and factor that in to maximum daily dosings. Please return to the ER at once for any worsening respiratory status, high fevers not responding to treatment, feelings of multisystem complaints like intractable nausea or vomiting, not keeping anything down, feeling weak or jittery, dizziness or near fainting. Referrals: Bo Brown, [employer] [Primary Care Provider] - Discharge Data Discharge Date/Time-TO BE ENTERED AT DEPARTURE: 04/14/23 17:19 HPI General Date/Time Provider Initiated Documentation: 04/14/23 14:26. HPI Narrative: Kena is a 62-year-old male with history of HTN, COPD, CKD and GERD who presents to the emergency department today for evaluation of fever/chills. He reports that he started feeling unwell last night, vomited x 2 and had fever/chills. This morning he checked his temperature and it was 101. He denies congestion, sore throat, change in baseline nighttime cough, chest pain, abdominal pain, blood in emesis, change in bowel or bladder function. He did vomit a couple nights ago, says it appeared black at that time but it has been normal color since then. He is not on any anticoagulation. He does have a history of pneumonia multiple times in the past, says this feels like nothing compared to them. He has had many ill contacts at work. Related Data Home Medications Medication Instructions Recorded Confirmed amlodipine 10 mg tablet 10 mg PO DAILY #90 tabs 03/09/23 04/14/23 losartan 100 mg tablet 100 mg PO DAILY #90 tabs 03/09/23 04/14/23 metoprolol succinate 100 mg 100 mg PO DAILY #90 tabs 03/09/23 04/14/23 tablet,extended release 24 hr pantoprazole 40 mg tablet,delayed 40 mg PO DAILY #90 tabs 03/29/23 04/14/23 release (Protonix) amoxicillin 875 mg-potassium 1 tab PO BID pneumonia 5 days #9 04/14/23 clavulanate 125 mg tablet tabs azithromycin 250 mg tablet 250 mg PO DAILY pneumonia 4 days 04/14/23 #4 tabs Previous Rx's Medication Instructions Recorded amlodipine 10 mg tablet 10 mg PO DAILY #90 tabs 03/09/23 losartan 100 mg tablet 100 mg PO DAILY #90 tabs 03/09/23 metoprolol succinate 100 mg 100 mg PO DAILY #90 tabs 03/09/23 tablet,extended release 24 hr pantoprazole 40 mg tablet,delayed 40 mg PO DAILY #90 tabs 03/29/23 release (Protonix) amoxicillin 875 mg-potassium 1 tab PO BID pneumonia 5 days #9 04/14/23 clavulanate 125 mg tablet tabs azithromycin 250 mg tablet 250 mg PO DAILY pneumonia 4 days 04/14/23 #4 tabs Allergies Allergy/AdvReac Type Severity Reaction Status Date / Time lisinopril AdvReac Intermediate cough Verified 04/14/23 14:24 General Stated Complaint: RespSymp DARRELL: 3 Review of Systems Narrative: see HPI Exam Const General: cooperative, healthy appearing, comfortable and no acute distress HENMT Head: normal to inspection Mouth: oral mucosae normal and moist mucous membranes Neck Lymphatic: no lymphadenopathy noted Resp Effort & Inspection: normal respiratory effort and able to speak in complete sentences Auscultation: clear to auscultation bilaterally Cardio Rate: regular rate Rhythm: regular rhythm GI Inspection: normal to inspection Palpation: soft, not firm, no guarding, no masses, not rigid and nontender Auscultation: normal bowel sounds Course Vital Signs Vital signs: Vital Signs Temperature 37.0 C 04/14/23 14:25 Pulse 89 04/14/23 14:25 Respiratory Rate 16 04/14/23 14:25 Blood Pressure 133/74 04/14/23 14:25 Pulse Oximetry 98 04/14/23 14:25 Temperature 37.0 C 04/14/23 14:25 Temperature Source Temporal Artery Scan 04/14/23 14:25 Pulse 89 04/14/23 14:25 Respiratory Rate 16 04/14/23 14:25 Respiratory Effort Normal, Non-Labored 04/14/23 14:27 Blood Pressure 133/74 04/14/23 14:25 Blood Pressure Position Sitting 04/14/23 14:25 Pulse Oximetry 98 04/14/23 14:25 Oxygen Delivery Method Room Air 04/14/23 14:25 Oxygen Flow Rate 0 04/14/23 14:25 Pain Level 0 04/14/23 14:25 Medical Decision Making Kena is a 62-year-old male with history of HTN, COPD, CKD and GERD who presents to the emergency department today for evaluation of fever/chills. He reports that he started feeling unwell last night, vomited x 2 and had fever/chills. This morning he checked his temperature and it was 101. He denies congestion, sore throat, change in baseline nighttime cough, chest pain, abdominal pain, blood in emesis, change in bowel or bladder function. He did vomit a couple nights ago, says it appeared black at that time but it has been normal color since then. He is not on any anticoagulation. He does have a history of pneumonia multiple times in the past, says this feels like nothing compared to them. He has had many ill contacts at work. Physical exam very reassuring. Patient is alert and oriented, no acute distress. Moist mucous membranes. Easy work of breathing, lung sounds clear bilaterally. Normal heart sounds. No cervical or submandibular lymphadenopathy. Abdomen is soft, nondistended, nontender to palpation with normal active bowel sounds x 4. No pedal edema. DDx includes was not limited to viral illness, GERD, pneumonia, gastritis I independently interpreted the following tests: CBC remarkable for white cell count 26.92 Awaiting additional bloodwork results, viral panel, and CXR. Handoff report given to HARPAL Tyson Quality:[facility] Health Related Social Needs: No Data to Display [facility] All Active Problems (Updated 04/14/23 @ 16:37 by HARPAL Monahan) Pneumonia (Acute) Adenomatous colon polyp (Acute) Pancolonic diverticulosis (Acute) Hiatal hernia with GERD (Acute) Anemia (Chronic) CKD (chronic kidney disease) (Chronic) COPD (chronic obstructive pulmonary disease) (Chronic) Personal history of nicotine dependence (Acute) Quit in 2016 Alcohol abuse (Chronic) Quit in 2021 Azotemia (Acute) Essential hypertension (Acute 12/25/12) Esophageal reflux (Chronic) Posterior tibial tendon dysfunction (PTTD) of right lower extremity (Acute) Arthritis of right subtalar joint (Acute) Osteoarthritis of right midfoot (Acute) Pes planus of right foot (Acute) Enchondroma (Acute) Medical History (Updated 04/14/23 @ 16:37 by HARPAL Monahan) Compressive atelectasis Empyema lung Loculated pleural effusion Diverticulitis of colon with perforation Smoker Alcoholic liver disease (05/03/14) Left lower lobe pneumonia Surgical History (Updated 03/30/23 @ 15:26 by Brittani Motley) History of esophagogastroduodenoscopy (~03/2023) History of colonoscopy (~03/2023) History of thoracic surgery [facility] S/P partial colectomy (12/26/12) Family History Father Prostate cancer Sister No problems noted. Sister No problems noted. Brother No problems noted. Social History (Updated 02/05/23 @ 12:01 by Keira Knapp Smoking/Tobacco Use Status: Former Tobacco Use tobacco type: cigarettes and e-cigarettes Quit Date: 02/14/17 Tobacco: How many years used: 35 Second Hand Exposure: Yes Smoking risk assessment performed?: Yes Alcohol Intake: former Drug use: Never Substance use type: does not use Caregiver/Support person: No Household members: spouse Housing: house Communication Needs: None Pets and animals: Yes Pets and animals: cat(s) and dog(s) Sexually active: Yes Do you think of yourself as: straight/heterosexual Current gender identity: male What is your relationship status?: How often do you talk on the phone with friends or family?: once per week How often do you get together with friends or relatives?: once per week Do you belong to any clubs or organized social groups?: no Panel score (0-1 are the most socially isolated patients): 1 What type of physical activity do you participate in: none, walking and weight lifting Duration: 30-45 minutes/day Frequency: daily Taniya/Catholic: No preference Special taniya needs: No Seatbelt use: sometimes Drive 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 He had a temp of 101 this morning. He denies change in baseline nighttime cough, chest pain, abdominal pain, blood in stool or emesis, dysuria. He does have a history of pneumonia, was hospitalized last April for bacteremia secondary to CAP. Labs significant for white cell count 26.92, and slightly elevated creatinine of 1.5 BUN 27. Awaiting chest x-ray, flu/COVID/RSV, additional labs, and urine. Last updated by Erica Nichols at 04/14/23 15:31
[2023-04-14 15:07] LABS: HCT 35.7 % (40.0-50.0); HGB 11.5 g/dL (13.5-17.5); MCH 28.4 pg (27.0-33.0); MCHC 32.2 % (32.0-36.0); MCV 88 fL (80-95); MPV 10.5 fL (8.0-11.0); Platelet Count 307 10^3/uL (130-400); RBC 4.05 10^6/uL (4.36-5.78)
[2023-04-14 15:13] LABS: Anion Gap 10.5 mmol/L (3-11); BUN 27 mg/dL (7-18); CO2 27.5 mmol/L (21.0-32.0); CREATININE 1.5 mg/dL (0.70-1.30); Calcium 9.4 mg/dL (8.5-10.1); Chloride 105 mmol/L (98-107); Estimated GFR 52.64 (mL/min/1.73m2); Glucose 113 mg/dL (74-106); Potassium 3.8 mmol/L (3.5-5.1); Sodium 143 mmol/L (136-145); WBC 26.92 10^3/uL (4.4-10.8)
[2023-04-14 15:29] LABS: Absolute Lymphocyte Count 2.42 10^3/uL (1.2-3.4); Absolute Monocyte Count 1.88 10^3/uL (0.1-0.8); Absolute Neutrophil Count 22.61 10^3/uL (1.2-6.7); Bands % 3
[2023-04-14 15:30] LABS: Diff Comment Manual Differential; RBC Morphology Normal
[2023-04-14 15:46] LABS: COVID-19 PCR Negative (Negative); Influenza A PCR Negative (Negative); Influenza B PCR Negative (Negative); RSV PCR Negative (Negative)
[2023-04-14 15:51] LABS: Source Nasopharynx
[2023-04-14 15:59] LABS: BE (Venous) 3 mmol/L (-2-3); HCO3 (Venous) 27 mmol/L (23-28); O2 Sat (Venous) 66 %; TCO2 (Venous) 25 mmol/L (24-29); pCO2 (Venous) 41 mmHg (41-51); pH (Venous) 7.43 (7.31-7.41); pO2 (Venous) 35 mmHg
[2023-04-14 16:01] LABS: Lactate 1.3 mmol/L (0.6-1.4)
[2023-04-14] MEDS: Normal Saline 1,000 ML 1000 ML IV (16:14)
--- NOTE | 2023-04-14 16:30 | ED.PROG_ITS ---
Date of service: 04/14/23 Time of Service: 16:30 Medical Decision Making This dictation utilizes ealcm-vz-laca dictation software and may contain unedited grammatical errors. Patient seen in sign-out from provider Trevor, see her prior note- 62 y/o M presents to ED today with a chief complaint of persistent nocturnal cough, seen at [facility] with fever- states he has history of GERD- had Tylenol prior to arrival with afebrile status. Patient has been vomiting intermittently. Patient has history of PNA. Patients' medical history: GERD, CKD, ETOH-related liver Dz, Empyema, Atelectasis, COPD, HTN. Family and social history: [ ]. Pertinent exam findings / vital signs include [ ]. Differential / pathologies of concern include Pneumonia, Sepsis, URI, Viral Syndrome, Electrolyte Abnormality, Gastroenteritis. Diagnostic studies of: -CBC w/ Diff, BMP, UA, Lactate, Procalcitonin, XR Chest, VBG, Covid/Flu/RSV PCR. Blood Cx's pending. -CBC shows leukocytosis of 26, has been vomiting, no left-shift or immature granulocytes -BMP shows SCr of 1.5 - appears baseline is somewhere between 1.2-1.4 -Lactate 1.3, Procalcitonin 2.1. - do not suspect sepsis- can be elevated in liver Dz -Covid/Flu/RSV PCR negative -XR Chest shows PNA of L upper & lower lobe, will begin dual coverage empiric antibiotics Interventions of: -1L IVF NS, outpatient Rx for PNA. ED Course/Assessment/Plan: 62-year-old male with nontoxic vitals in no respiratory distress presents with a nighttime cough that is slightly worse than usual, has chronic GERD and has vomited intermittently over the past couple days. His labs are reassuring with a normal lactate for sepsis, his procalcitonin is elevated but this can be e levated falsely in the setting of chronic liver disease, believe it is reasonable to start empiric outpatient antibiotics as long as he has strict return criteria for any worsening despite treatment, I did send him home with a to go pack of Zofran and started the first dose of antibiotics tonight and the rest were sent to [facility] in [place]. The patient is are comfortable with this disposition. Findings not consistent with hypoxic respiratory failure, sepsis, acute renal failure, inability to tolerate PO intake, severe dehydration. Disposition of Pneumonia. Patient verbalized understanding of the plan and return to ED criteria and engaged in shared decision making. Medical Records Medical records reviewed: Yes I reviewed the patient's medical records. Imaging Data Radiologic Study: Attestation: I personally reviewed and interpreted this imaging study as follows: Imaging: X-Ray Radiologist's impression: EXAM: XR CHEST 2V PA LATERAL CLINICAL HISTORY: cough/chills TECHNIQUE: 2D digital imaging was performed. COMPARISON: CR XR PORTABLE CHEST AP from 04/19/[address] CHEST LUNG CANCER SCREEN from 12/27/2022 FINDINGS: HEART: Normal size. Aorta: Not dilated. PULMONARY VASCULATURE: Normal. LUNGS: Left-sided upper and lower lobe infiltrates. The right lung appears clear. PLEURAL SPACE: No pleural effusion or pneumothorax. BONE:Unremarkable for age. Soft tissues: Unremarkable. IMPRESSION: Left upper and lower lobe pneumonia. Lab Data Lab results reviewed: Yes I reviewed the patient's lab results. Labs: 04/14/23 15:54 Blood Blood Culture - Pending 04/14/23 15:46 Blood Blood Culture - Pending Laboratory Tests Range/Units 04/14/23 04/14/23 04/14/23 14:42 14:45 15:54 WBC (4.4-10.8) 10^3/uL 26.92 H* RBC (4.36-5.78) 10^6/uL 4.05 L Hgb (13.5-17.5) g/dL 11.5 L Hct (40.0-50.0) % 35.7 L MCV (80-95) fL 88 MCH (27.0-33.0) pg 28.4 MCHC (32.0-36.0) % 32.2 RDW (11.8-14.1) % 14.0 Plt Count (130-400) 10^3/uL 307 MPV (8.0-11.0) fL 10.5 Immature Gran % 0.0 Neutrophils % 81.0 Band Neutrophils % 3 Lymphocytes % 9.0 Monocytes % 7.0 Eosinophils % 0.0 Basophils % 0.0 Absolute Neutrophils (1.2-6.7) 10^3/uL 22.61 H Absolute Lymphocytes (1.2-3.4) 10^3/uL 2.42 Absolute Monocytes (0.1-0.8) 10^3/uL 1.88 H Absolute Eosinophils (0.0-0.7) 10^3/uL 0.00 Absolute Basophils (0.0-0.2) 10^3/uL 0.00 RBC Morphology Normal VBG pH (7.31-7.41) 7.43 H VBG pCO2 (41-51) mmHg 41 VBG pO2 mmHg 35 VBG HCO3 (23-28) mmol/L 27 VBG Total CO2 (24-29) mmol/L 25 VBG O2 Saturation % 66 VBG Base Excess (-2-3) mmol/L 3 VBG Lactate (0.6-1.4) mmol/L 1.3 Sodium (136-145) mmol/L 143 Potassium (3.5-5.1) mmol/L 3.8 Chloride (98-107) mmol/L 105 Carbon Dioxide (21.0-32.0) mmol/L 27.5 Anion Gap (3-11) mmol/L 10.5 BUN (7-18) mg/dL 27 H Creatinine (0.70-1.30) mg/dL 1.5 H Est GFR (CKD-EPI 2020) (mL/min/1.73m2) 52.64 Glucose (74-106) mg/dL 113 H Calcium (8.5-10.1) mg/dL 9.4 Procalcitonin ng/mL 2.1 COVID-19 Source Nasopharynx SARS-CoV-2 (PCR) (Negative) Negative Influenza Type A (PCR) (Negative) Negative Influenza Type B (PCR) (Negative) Negative RSV (PCR) (Negative) Negative Quality:[facility] Health Related Social Needs: No Data to Display Sign Out Sign Out Data: Sign Out Comment: Kena is a 62-year-old male who presents to the emergency department today accompanied by his for evaluation of sudden onset of chills and 2 episodes of vomiting last night. He had a temp of 101 this morning. He denies change in baseline nighttime cough, chest pain, abdominal pain, blood in stool or emesis, dysuria. He does have a history of pneumonia, was hospitalized last April for bacteremia secondary to CAP. Labs significant for white cell count 26.92, and slightly elevated creatinine of 1.5 BUN 27. Awaiting chest x-ray, flu/COVID/RSV, additional labs, and urine. Last updated by Erica Nichols at 04/14/23 15:31 Discharge Plan Disposition Patient Disposition: Home Condition: Stable Discharge Details Clinical Impression: Pneumonia Primary Care Provider: Bo Brown ED Provider: Rocael Paredes Home Meds and New Rx's Prescriptions: New amoxicillin-pot clavulanate 875-125 mg tablet 1 tab PO BID 5 Days Qty: 9 0RF azithromycin 250 mg tablet 250 mg PO DAILY 4 Days Qty: 4 0RF Rx Instructions: start on day 2 of therapy No Action amlodipine 10 mg tablet 10 mg PO DAILY Qty: 90 3RF losartan 100 mg tablet 100 mg PO DAILY Qty: 90 3RF metoprolol succinate 100 mg tablet extended release 24 hr 100 mg PO DAILY Qty: 90 3RF pantoprazole [Protonix] 40 mg tablet,delayed release (DR/EC) 40 mg PO DAILY Qty: 90 4RF Discharge Instructions Instructions: Amoxicillin/Clavulanate Potassium (By mouth), Azithromycin (By mouth), Pneumonia (ED) Additional Instructions: You were seen in the emergency department for your left-sided pneumonia, it is reasonable to start antibiotics for this we provided the first doses here in the emergency department today and I sent the rest to [facility] in [place]. Please use therapeutic dosing of Tylenol (acetamenophen) & Advil (ibuprofen) in an alternating fashion as follows: Take 1000mg of Tylenol every 6 hours without missing doses- that is 4 times per day, as needed [place] in between the Tylenol dosings, take 400-600mg of Advil also on a 6 hour schedule, that is also 4 times per day. The daily maximum dosing of Tylenol is 4000mg (3,000mg or less with your existing liver disease), and the daily maximum dosing of Advil is 2400mg. This is safe to do for weeks. Please note that some common cold medications & prescription pain medications may contain acetamenophen and you need to read OTC drug labels and factor that in to maximum daily dosings. Please return to the ER at once for any worsening respiratory status, high fevers not responding to treatment, feelings of multisystem complaints like intractable nausea or vomiting, not keeping anything down, feeling weak or jittery, dizziness or near fainting. Referrals: Bo Brown, OSTEOPATHIC RESIDENT [Primary Care Provider] - Discharge Data Discharge Date/Time-TO BE ENTERED AT DEPARTURE: 04/14/23 17:19
[2023-04-14 16:38] LABS: Procalcitonin 2.1 ng/mL
[2023-04-14] MEDS: Amoxicillin 875/Clav. 125 TAB PO (16:56)
[2023-04-14] MEDS: Azithromycin 250 MG TAB 500 MG PO (16:56)
== END 2023-04-14 17:19 | disposition home or self-care (01) ==
PROVIDERS: Nurse Practitioner Family; Emergency Provider Physician Assistant; PCP Nurse Practitioner Family
DX: R50.9 Fever, unspecified; K70.9 Alcoholic liver disease, unspecified; J18.9 Pneumonia, unspecified organism; R05.1 Acute cough; N18.9 Chronic kidney disease, unspecified; F10.10 Alcohol abuse, uncomplicated; Z87.19 Personal history of other diseases of the digestive system
CPT/HCPCS: 00123; 80048; 82805; 84145; 85027; 87040; 87637; 99283; 71046; 83605; 85007

== ENCOUNTER 2024-02-09 16:27 | Outpatient (CLI) | payer BC, SELFPAY ==
[2024-02-09 13:43] LABS: Hemoglobin A1C 6.2 % (<5.7)
[2024-02-09 15:25] LABS: ALT 22 U/L (16-63); AST 14 U/L (15-37); Albumin 2.6 g/dL (3.4-5.0); Alkaline Phosphatase 96 U/L (46-116); Anion Gap 10.1 mmol/L (3-11); BUN 28 mg/dL (7-18); Bilirubin, Total 0.32 mg/dL (0.2-1.0); CO2 25.9 mmol/L (21.0-32.0); CREATININE 1.4 mg/dL (0.70-1.30); Calcium 9.7 mg/dL (8.5-10.1); Calculated LDL 30 mg/dL (<100); Chloride 106 mmol/L (98-107); Cholesterol 104 mg/dL (<200); Estimated GFR 56.83 (mL/min/1.73m2); Glucose 131 mg/dL (74-106); HDL Cholesterol 32 mg/dL (40-60); Potassium 4.4 mmol/L (3.5-5.1); Sodium 142 mmol/L (136-145); Triglyceride 213 mg/dL (<150)
[2024-02-09 21:22] LABS: PSA, Screening 1.1 ng/mL (<=4.5)
== END 2024-02-09 16:28 | disposition home or self-care (01) ==
LOC: LBO 16:28
PROVIDERS: PCP Nurse Practitioner Family; Visit Provider Nurse Practitioner Family
DX: Z13.220 Encounter for screening for lipoid disorders (principal); Z13.1 Encounter for screening for diabetes mellitus; Z12.5 Encounter for screening for malignant neoplasm of prostate; I10 Essential (primary) hypertension
CPT/HCPCS: 36415; 80053; 80061; 84153; 83036

== ENCOUNTER 2024-02-24 14:28 | Outpatient (CLI) | payer BC, SELFPAY ==
--- NOTE | 2024-02-24 13:45 | DI.RAD_ITS ---
Exam(s) XR CHEST 2V PA LATERAL EXAM: XR CHEST 2V PA LATERAL CLINICAL HISTORY: cough, r/o pneumonia. covid 1 month ago R05.9 TECHNIQUE: 2D digital imaging was performed of the chest. Two images were obtained. PA and lateral views were obtained. COMPARISON: CR XR CHEST 2V PA LATERAL from 04/14/2023 FINDINGS: MEDIASTINUM: Normal. HEART: Normal. PULMONARY VASCULATURE: Normal. LUNGS: There is an opacity in the superior segment of the left lower lobe suspicious for pneumonia. The right lung is clear. PLEURAL SPACE: No pleural effusion or pneumothorax. BONE:Within normal limits for the patient's age. OTHER FINDINGS:There is unchanged elevation of the left hemidiaphragm. IMPRESSION: Left lower lobe pneumonia. A follow-up chest x-ray is recommended to document complete resolution of the infiltrate. DATA REPOSITORY: RADIATION DOSE DELIVERED:
== END 2024-02-24 14:48 ==
LOC: DI 14:28
PROVIDERS: PCP Nurse Practitioner Family; Visit Provider Student in an Organized Health Care Education/Training Program
DX: J18.1 Lobar pneumonia, unspecified organism (principal)
CPT/HCPCS: 71046

== ENCOUNTER 2025-02-01 13:23 | Outpatient (CLI) | payer BC, SELFPAY ==
[2025-02-01 14:46] LABS: Hemoglobin A1C 5.6 % (<5.7)
[2025-02-01 14:55] LABS: Anion Gap 11.5 mmol/L (3-11); BUN 27 mg/dL (9-23); CO2 24.5 mmol/L (20.0-31.0); Calcium 9.0 mg/dL (8.3-10.6); Chloride 110 mmol/L (98-107); Cholesterol 164 mg/dL (<200); Glucose 103 mg/dL (74-106); HDL Cholesterol 36 mg/dL (>or=40); Potassium 4.2 mmol/L (3.5-5.1); Sodium 146 mmol/L (136-145)
[2025-02-01 22:09] LABS: PSA, Screening 1.1 ng/mL (<=4.5)
== END 2025-02-01 13:24 | disposition home or self-care (01) ==
LOC: LBO 13:23
PROVIDERS: PCP Nurse Practitioner Family; Visit Provider Nurse Practitioner Family
DX: Z12.5 Encounter for screening for malignant neoplasm of prostate (principal); I10 Essential (primary) hypertension; Z13.220 Encounter for screening for lipoid disorders; Z13.1 Encounter for screening for diabetes mellitus
CPT/HCPCS: 36415; 80048; 80061; 84153; 83036